=== PATIENT | male | born 1950 | race Two or more races ===

== ENCOUNTER 2025-05-29 16:28 | Inpatient (IN) | payer OTHER, MEDICAID, MEDICARE, SELFPAY ==
[2025-05-29 16:30] VITALS: BMI 21.2
--- NOTE | 2025-05-29 16:35 | EKG_ITS ---
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
[2025-05-29 16:44] VITALS: BP 130/70; PULSE 54; RESP 18; TEMP 36.4; O2SAT 98
--- NOTE | 2025-05-29 17:03 | XR_ITS ---
Examination: AP chest single view Technique: AP sitting portable chest single view Date and time: May 29, 2025, 1728 hrs., Comparison September 05, 2023. Indications: Weakness chest pain today. Findings: Mild enlargement cardiac contour No lobar pneumonia or pulmonary edema The osseous structures are intact Impression: Mild enlargement cardiac contour No pneumonia or pulmonary edema
--- NOTE | 2025-05-29 17:03 | XR_ITS ---
Examination: CT cervical spine without contrast 2-D sagittal reconstructions 2-D coronal reconstructions 3-D reconstructions. Exam date and time:May 29, 2025 1709 hrs. Indications: Ground-level fall 4 days ago with injury to the neck, neck pain CTDI:vol (mGy) 15.6 DLP: (mGycm) 350 Technique: Multiple 2 mm axial sections of the cervical spine have been obtained. The coronal and sagittal reconstructions have been obtained. 3-D reconstructions have been obtained. Low dose protocols were performed. One or more of the following dose reduction techniques were used; automated exposure control, adjustment of the mA and/or KV according to patient size, use of iterative reconstruction technique. Findings: Axial sections demonstrate intact base of the skull. C1 exhibit satisfactory relationship to the odontoid. No acute cervical vertebral body fracture seen. Alignment posterior spinous processes satisfactory. Impression: No acute cervical fracture.
--- NOTE | 2025-05-29 17:03 | XR_ITS ---
Examination: CT brain head without contrast. 2-D sagittal coronal reconstructions Date and time of exam:May 29, 2025, 1709 hrs. Indications: Ground-level fall 4 days ago, head pain CTDI: vol (mGy):56.9 DLP: (mGycm):1155 Technique: Multiple CT axial sections of the brain have been obtained, 5 mm slice thickness. Contrast has not been administered. 2-D sagittal, coronal reconstructions have been obtained Low dose protocols were performed. One or more of the following dose reduction techniques were used; automated exposure control, adjustment of the mA and/or KV according to patient size, use of iterative reconstruction technique. Findings: No significant ventricular enlargement. Intra-axial or extra-axial hemorrhage density is not seen. No mass effect or midline shift Basal cisterns are not remarkable. Fourth ventricle is midline. Cranial vault intact. Left sphenoid sinusitis Impression: Negative for acute hemorrhage, mass effect or midline shift
--- NOTE | 2025-05-29 17:04 | PD.EDADULT ---
ED General RME/HPI General Chief complaint: Dizziness Stated complaint: DIZZY/SWEATY, I ALMOST PASSED OUT Time Seen by Provider: 05/29/25 16:54 Arrival date/time: 05/29/25 16:28 CC: Weakness, dizziness HPI worsening dizziness and weakness for the past 4 days after ground-level fall. Patient is on Eliquis for A-fib. Patient states in the last 2 days he has also had burgundy colored stools. Patient denies loss of consciousness. Patient was not seen at the time of [place] Patient is awake alert oriented and pale appearing. Related Data Home Medications ?Medication ?Instructions ?Recorded ?Confirmed amlodipine 10 mg tablet 10 mg PO QDAY 08/27/23 04/14/24 Held on 04/20/24. Instructions: Resume on 04/27/24. Hold for 1 week, monitor blood pressure, follow-up with PCP before restarting. lisinopril 40 mg tablet 40 mg PO QDAY 08/27/23 04/14/24 Held on 04/20/24. Instructions: Resume on 04/27/24. Hold, monitor blood pressure, restart after following up with PCP, monitor blood pressure omeprazole 40 mg capsule,delayed 40 mg PO QDAY 08/27/23 04/14/24 release sertraline 100 mg tablet 100 mg PO HS 08/27/23 04/14/24 furosemide 20 mg tablet 20 mg PO QDAY 02/25/24 04/14/24 Held on 04/20/24. Instructions: Resume on 04/27/24. Hold for now, close monitor blood pressure, follow-up with PCP before restarting hydrochlorothiazide 12.5 mg capsule 12.5 mg PO QDAY 02/25/24 04/14/24 Held on 04/20/24. Instructions: Resume on 04/27/24. Hold, close monitor blood pressure, repeat CMP to avoid hyponatremia. Follow-up with PCP before restarting levothyroxine 25 mcg tablet 25 mcg PO QDAY 02/25/24 04/14/24 apixaban 5 mg tablet (Eliquis) 5 mg PO QDAY 04/14/24 04/14/24 Previous Rx's ?Medication ?Instructions ?Recorded hydrocodone 10 mg-acetaminophen 1 tab PO Q8H PRN pain #15 tabs 04/22/24 325 mg tablet Allergies Allergy/AdvReac Type Severity Reaction Status Date / Time No Known Allergies Allergy Verified 05/29/25 16:32 Review of Systems Review of Systems Narrative Review of Systems: GEN: No fever, no chills, no weight loss EYES: No discharge, no visual changes, no pain HEENT: No ear pain, no congestion, no sore throat PULM: No shortness of breath, no cough, no congestion CV: No chest pain, no dyspnea on exertion, no palpitations GI: No nausea, no vomiting, no diarrhea, no pain, no constipation : No frequency, no urgency, no dysuria MUSC/SKEL: No joint pain, no back pain SKIN: No rash PSYCH: No hallucinations, no depression HEME/LYMPH: No easy bleeding or bruising tendencies NEURO: + weakness, no headache Past Medical History Past Medical History NEUROLOGIC: Negative Neurological Disorders or Seizures CARDIAC: Positive Cardiac Disorders, Cardiac Arrhythmia and Hypertension; Negative Atrial Fibrillation or Congestive Heart Failure RESPIRATORY: Negative Chronic Obstructive Pulmonary Disease (COPD) GASTROINTESTINAL: Positive Gastrointestinal Disorders (COLOSTOMY- 08/2023) and Gastroesophageal Reflux Disease (RESOLVED) GENITOURINARY: Negative Genitourinary Disorders or Renal Disease MUSCULOSKELETAL: Negative Musculoskeletal Disorders ENDOCRINE: Positive Endocrine Disorders and Hypothyroidism; Negative Diabetes Mellitus Type 1 or Diabetes Mellitus Type 2 HEMATOLOGIC: Negative Blood Disorders, Anemia or Clotting Problems PSYCHO/SOCIAL: Positive Depression OTHER HISTORY: Positive Mumps; Negative Hospitalization, Autoimmune Disease, Down Syndrome, Developmental Delay, Falls, Blood Transfusions, Blood Transfusion Reaction, Anesthesia Reactions, Chicken Pox, Measles or Cancer Family History FAMILY HISTORY: Positive Family Cardiac Disorders (FATHER- MD) and Family Cancer (MOTHER- STOMACH CA); Negative Family Respiratory Disorders or Family Gastrointestinal Problems Surgical History SURGICAL: Positive Bowel Surgery (BOWEL RESECTION - COLOSTOMY) Social History SMOKING STATUS: Never smoker SECOND HAND EXPOSURE: No ED Exam Narrative Physical exam: [General: In mild discomfort but not in any acute distress Head normocephalic HEENT: Eyes pupils are PERRLA EOMs are intact mouth pink dry membranes uvula is midline swallow symmetrical phonation is normal. All other subsystems of HEENT are within acceptable limits Neck is supple nontender Chest equal chest rise nontender to palpation Respiratory: Clear to auscultation no wheezes crackles or rubs CV: Rate rhythm is regular no murmurs rubs or clicks Abdomen is soft nontender no masses positive bowel sounds all 4 quadrants GI: Rectum: Good rectal tone no hemorrhoids no fissures. Vault is empty guaiac stool is black guaiac positive. Back: No CVA tenderness no spinous process tenderness from cervical spine thoracic and lumbar spine Skin: 4 cm full-thickness laceration to the medial aspect of the right eyebrow. This is crusted with scabs, having never been closed. Note: Patient acknowledged this is a laceration from a ground-level fall 4 days ago. Otherwise skin is intact no petechiae rash induration ulceration or crepitus Extremities: Moving all extremity against resistance cap refill less than 2 seconds neurosensory intact Neuro: Awake alert oriented x3 Glascow coma 15 no focal deficits] Course Course Course Narrative: Patient's clinical condition and laboratory findings and imaging discussed with resident for , who agrees to accept the patient for admission. Patient in agreement with this plan Quality Measures none Orders Category Date Time Status COVID-19 Screening Questionnaire NOW Care 05/29/25 19:08 Active COVID-19 Screening Questionnaire NOW Care 05/29/25 19:17 Active Decision to Admit X1 Care 05/29/25 19:17 Active EKG (ED ONLY) *Do not use* NOW Care 05/29/25 16:35 Completed Insert IV NOW Care 05/29/25 18:24 Active NPO after Midnight ONCE Care 05/29/25 18:32 Active Consult to Gastroenterology Stat Cons 05/29/25 18:32 Ordered Diet Clear Liquid Diet 05/30/25 Breakfast Active Diet NPO after Midnight Diet 05/30/25 00:[address] cervical spine wo con Stat Exams 05/29/25 17:[address] head/brain wo con Stat Exams 05/29/25 17:03 Completed EKG (ED Only) Stat Exams 05/29/25 16:35 Draft XR chest 1V Stat Exams 05/29/25 17:03 Completed B-Type Natriuretic Peptide Stat Lab 05/29/25 17:17 Completed CBC Stat Lab 05/29/25 17:17 Completed Comprehensive Metabolic Panel Stat Lab 05/29/25 17:17 Completed Drug Screen,Urine Stat Lab 05/29/25 17:03 Ordered LDH (Lactate Dehydrogenase) Stat Lab 05/29/25 17:17 Completed Magnesium Stat Lab 05/29/25 17:17 Completed Occult Blood, Stool (LAB) Stat Lab 05/29/25 18:00 Completed Partial Thromboplastin Time Stat Lab 05/29/25 17:17 Completed Prothrombin Time with INR Stat Lab 05/29/25 17:17 Completed Troponin I Stat Lab 05/29/25 17:17 Completed Type and Screen Stat Lab 05/29/25 17:17 Completed Urinalysis, C/S if Indicated Stat Lab 05/29/25 17:03 Ordered Pantoprazole Inj [Protonix Inj] Med 05/29/25 17:59 Discontinued 40 mg IVP X1 ONE Pantoprazole/Ns 80Mg IV Premix [Protonix/NS 80mg IV Med 05/29/25 17:59 Active Premix] 80 mg in 100 ml IV Q10H Vital Signs Vital signs: Vital Signs Temperature 97.5 F 05/29/25 16:44 Pulse Rate 54 L 05/29/25 16:44 Respiratory Rate 18 05/29/25 16:44 Blood Pressure 130/70 05/29/25 16:44 Pulse Oximetry (%) 98 05/29/25 16:44 Oxygen Delivery Method Room Air 05/29/25 16:44 Discharge Plan Plan Patient Disposition: Other Care w/in Hosp (SDC/EMILY) Prescriptions/Referrals Prescriptions/Med Rec: No Action levothyroxine 25 mcg tablet 25 mcg PO QDAY Patient Comments: TAKE 1 TABLET BY MOUTH ONCE DAILY IN THE MORNING ON AN EMPTY STOMACH hydrochlorothiazide 12.5 mg capsule 12.5 mg PO QDAY Patient Comments: TAKE 1 CAPSULE BY MOUTH ONCE DAILY IN THE MORNING furosemide 20 mg tablet 20 mg PO QDAY sertraline 100 mg tablet 100 mg PO HS Patient Comments: TAKE 1 TABLET BY MOUTH ONCE DAILY FOR 90 DAYS omeprazole 40 mg capsule,delayed release(DR/EC) 40 mg PO QDAY Patient Comments: TAKE 1 CAPSULE BY MOUTH ONCE DAILY amlodipine 10 mg tablet 10 mg PO QDAY Patient Comments: TAKE 1 TABLET BY MOUTH ONCE DAILY lisinopril 40 mg tablet 40 mg PO QDAY Patient Comments: TAKE 1 TABLET BY MOUTH ONCE DAILY FOR 90 DAYS Eliquis 5 mg tablet 5 mg PO QDAY Patient Comments: TAKE 1 TABLET BY MOUTH TWICE DAILY hydrocodone-acetaminophen 10-325 mg tablet 1 tab PO Q8H MDD 30mg PRN (Reason: pain) Qty: 15 0RF Referrals: No Primary/Family,Physician [Primary Care Provider] - In 1 week Problem List Clinical Impression: GI (gastrointestinal bleed), Anemia Patient/Caregiver Discharge Instructions Print Language: Ecuadorean Stand Alone Forms: Jazmyne Award Info., Patient Portal Info Letter JULIA/RAFITA Supervising Physician JULIA/RAFITA Supervising Physician: Saud Hurst ENP [facility] Clinical Information Provided by: patient Medical Records reviewed [facility] Meds/Rx considered, not ordered None Labs/Rad/Tests considered, not ordered None Chronic Illness/Social Conditions Explain: A-fib on Eliquis hypertension Labs Labs: interpreted by me Lab(s) Interpretation(s): CBC shows no leukocytosis a hemoglobin of 10.5 and hematocrit of 32.4 platelets at 189. No bandemia. Coags show PT of 13.0 no other abnormalities CMP shows a chloride of 111 creatinine of 2.1 glucose of 138 no other electrolyte imbalances no transaminitis or T. bili elevation Troponin is negative BNP 347 Stool occult positive Imaging Imaging Interpretation(s): EKG performed at 1644 shows a ventricular rate of 54 QRS of 88 QTc of 461 this is A-fib with slow ventricular response. CT head and C-spine as interpreted by me read by radiology as negative for any acute finding Chest x-ray inter by me read by radiology shows a mildly enlarged cardiac border no other acute finding. Medication Administration(s) Medication Administration History Pantoprazole Sodium (Protonix/Ns 80mg Iv Premix) 80 mg in 100 mls @ 10 mls/hr IV Q10H DARYL Stop: 06/01/25 15:58 Last Admin: 05/29/25 18:40 Dose: 10 mls/hr Documented By: MADYSON Discontinued Medications Pantoprazole Sodium (Pantoprazole Inj 40 Mg Vial) 40 mg IVP X1 ONE Stop: 05/29/25 18:00 Last Admin: 05/29/25 18:23 Dose: 40 mg Documented By: MADYSON
[2025-05-29 17:27] LABS: Basophils # (Auto) 0.0 Thou/mm3 (0.0-0.2); Basophils % (Auto) 1 % (0-2.5); Eosinophils # (Auto) 0.0 Thou/mm3 (0.0-0.5); Eosinophils % (Auto) 1 % (0-10); Hematocrit 32.4 % (41.0-53.0); Hemoglobin 10.5 g/dL (13.5-16.0); Immature Granulocytes Auto 0.02 Thou/mm3 (0.00-0.00); Lymphocytes # (Auto) 0.8 Thou/mm3 (1.0-4.8); Lymphocytes % (Auto) 11 % (10-50); Mean Corpuscular HGB Conc 32.4 g/dl (31.0-37.0); Mean Corpuscular Hemoglobin 29.8 pg (25.0-35.0); Mean Corpuscular Volume 92 fL (80-100); Monocytes # (Auto) 0.4 Thou/mm3 (0.0-0.8); Monocytes % (Auto) 6 % (0-12); Neutrophils # (Auto) 6.4 Thou/mm3 (1.8-7.7); Neutrophils % (Auto) 82 % (37-80); Nucleated Red Blood Cell # 0.00 Thou/mm3 (0.00-0.00); Nucleated Red Blood Cell % 0 /100 WBC (0); Platelet Count 189 Thou/mm3 (140-440); RDW Standard Deviation 53.0 fL (35.1-43.9); Red Blood Count 3.52 Miln/mm3 (4.50-5.90); White Blood Count 7.8 Thou/mm3 (3.8-10.6)
[2025-05-29 17:52] LABS: Alanine Aminotransferase 17 U/L (10-49); Albumin, Serum 4.0 gm/dL (3.4-4.8); Albumin/Globulin Ratio 1.5 (1.2-2.2); Alkaline Phosphatase 92 U/L (46-116); Anion Gap 11 (7-16); Aspartate Amino Transferase 20 U/L (0-34); BUN/Creatinine Ratio 11 Ratio (12-20); Bilirubin,Total 0.3 mg/dL (0.3-1.2); Blood Urea Nitrogen 23 mg/dL (9-23); Calcium 9.5 mg/dL (8.3-10.6); Calcium (Corrected) 9.5 mg/dL (8.5-10.1); Carbon Dioxide 21.2 mMol/L (20.0-31.0); Chloride 111 mMol/L (98-107); Creatinine (Component) 2.1 mg/dL (0.6-1.3); Estimated Creatinine Clearance 27.7 mL/min (>60); Globulin 2.7 gm/dL (2.3-3.5); Glucose 138 mg/dL (74-106); LDH (Lactate Dehydrogenase) 195 U/L (120-246); Magnesium 1.8 mg/dL (1.6-2.6); Osmolality,Calculated 290 (275-295); Potassium 4.8 mMol/L (3.4-5.1); Sodium 143 mMol/L (136-145); Total Protein 6.7 gm/dL (5.7-8.2); Troponin I < 0.020 ng/mL (0.0-0.045); eGFR 32 See Note
[2025-05-29 17:54] LABS: INR 1.2 (0.9-1.3); Partial Thromboplastin Time 23.9 Seconds (22.0-36.0); Prothrombin Time 13.0 Seconds (9.0-12.2)
[2025-05-29 18:08] LABS: B-Type Natriuretic Peptide 347 pg/mL (0-100)
[2025-05-29 18:19] LABS: OBS Card Lot # 0124; OBS Developer Lot # 23003; OBS Performed By BOTED; OBS QC OK? Yes; Occult Blood, Stool Positive (Negative)
[2025-05-29 18:36] VITALS: BP 138/76; PULSE 46; RESP 17; TEMP 36.4; O2SAT 100
[2025-05-29] MEDS: PANTOPRAZOLE/NS 80MG IV PREMIX 80 MG/100 ML BAG 10 MG IV (18:40)
[2025-05-29 20:00] VITALS: BP 159/72; PULSE 49; RESP 14; TEMP 37; O2SAT 100
[2025-05-29] MEDS: ONDANSETRON INJ 2 MG/ML INJ 2 ML 4 MG IVP (20:09)
[2025-05-29 20:14] VITALS: BP 150/77; BP 159/79; PULSE 53; PULSE 60
[2025-05-29] MEDS: SODIUM CHLORIDE 0.9% 1000 ML 1,000 ML 80 ML IV (20:30)
--- NOTE | 2025-05-29 20:31 | PD.RESHP ---
Documentation for date of: 05/29/25 [facility] History of Present Illness Chief complaint: N/V, abdominal pain, weakness History of present illness: Mr. Salazar is a 74-year-old male past medical significant for hypertension, hypothyroidism, depression, A-fib on Eliquis, s/p colorectal anastomosis, colostomy reversal (2023) presented to [facility] ED on 05/29/2025 with chief complaint of generalized weakness, nausea, vomiting, abdominal pain. Patient reports [place], generalized weakness had a ground-level fall and lacerated medial aspect of right eyebrow. Patient thought he was having stroke-like symptoms, however he denies slurred speech, vision changes, droopy face, unilateral weakness, urinary or bowel incontinence. Patient has no prior history of stroke, seizures, NE. Patient also reported for the last 4 to 5 days occasional burgundy colored soft stool. Last bowel movement was this morning and has noticed streaks of blood in the stool. Associated with nausea and vomiting epigastic abdominal pain. Patient denies generalized abdominal pain however associated epigastric pain to gastric reflux from nausea. The emesis is nonbilious and nonbloody. Had 4-5 episodes of vomiting. Patient also reports low appetite for the last few months, he mention he has does feel the need to eat as often. No recent weight loss. Patient denies chest pain, chest palpitation, headache, hematuria, urinary frequency or urgency, chills. ED Course: -Initial vitals were BP 130/17, pulse 54, RR 18, temp 97.5, O2 sat 90% on room air. -Labs significant for hemoglobin 10.5, hematocrit 32.4, PT 13, chloride 111, creatinine 2.1, eGFR 32, glucose 130, BNP 347, stool occult blood positive -Imaging included EKG showed atrial fibrillation with slow ventricular response with rate 54, QTc 452. -In the ED, patient was given Protonix 40 mg x 1, Protonix 80mg IV - ED doctor consulted Dr. Perry (GI) recommend admission to for EGD tomorrow. -Patient was admitted for GI bleed workup and evaluation Review of Systems Review of systems otherwise negative except what is mentioned above. Past Medical History: Mentioned above Family History: Noncontributory Surgical History: Reanastomosis, removal colostomy on April 16/2024 Social History: Denies history of smoking. Denies recreational drug useQuit drinking after GI procedures. Current Medications: Eliquis 5 mg, levothyroxine 225 mcg (20+200 dosage per patient), lisinopril 40 mg, amlodipine 10mg Allergies: No known drug allergies Exam Vital Signs Temp Pulse Resp BP Pulse Ox O2 Del Method 98.6 F 53 L 14 159/79 H 100 Room Air 05/29/25 20:00 05/29/25 20:14 05/29/25 20:00 05/29/25 20:14 05/29/25 20:00 05/29/25 20:00 Narrative Exam General: Frail, pale, in mild discomfort due to nausea vomiting Skin: Warm, dry, intact. No rash or ecchymoses. Head: 4 cm full-thickness laceration to the medial aspect of the right eyebrow, is crusted with scabs Eye: Normal conjunctiva, PERRL. Throat: Oral mucosa moist. No obvious lesions in oropharynx. Cardiovascular: Regular rate and rhythm, no murmur, +S1/S2. Respiratory: Lungs are clear to auscultation, respirations unlabored, no crackles, no wheezing. Gastrointestinal: Generalized tenderness, prominent epigastric area, non-distended. No guarding or rebound tenderness. Extremities: No edema, no cyanosis, no clubbing. Neuro: Alert and oriented x3.No focal deficits observed. Conversant, moving all extremities. No overt cerebellar signs/incoordination.[place] 15 Psychiatric: Cooperative, appropriate affect Results: Labs 05/30/25 05:10 05/30/25 05:10 Labs: Short CBC 05/29/25 Range/Units 17:17 WBC 7.8 (3.8-10.6) Thou/mm3 Hgb 10.5 L (13.5-16.0) g/dL Hct 32.4 L (41.0-53.0) % Plt Count 189 (140-440) Thou/mm3 BMP 05/29/25 17:17 Sodium 143 Potassium 4.8 Chloride 111 H Carbon Dioxide 21.2 BUN 23 Creatinine 2.1 H Glucose 138 H Calcium 9.5 Cardiac Enzymes 05/29/25 Range/Units 17:17 Troponin I < 0.020 (0.0-0.045) ng/mL Liver Function 05/29/25 Range/Units 17:17 Total Bilirubin 0.3 (0.3-1.2) mg/dL AST 20 (0-34) U/L ALT 17 (10-49) U/L Alkaline Phosphatase 92 (46-116) U/L Albumin 4.0 (3.4-4.8) gm/dL Quality Measures Quality Measures none Advance care planning discussed with:: patient Medications Home Medications and Allergies Home Medications ?Medication ?Instructions ?Recorded ?Confirmed ?Type amlodipine 10 mg tablet 5 mg PO QDAY 08/27/23 05/29/25 History Held on 04/20/24. Instructions: Resume on 04/27/24. Hold for 1 week, monitor blood pressure, follow-up with PCP before restarting. lisinopril 40 mg tablet 40 mg PO QDAY 08/27/23 05/29/25 History omeprazole 40 mg capsule,delayed 40 mg PO QDAY 08/27/23 05/29/25 History release sertraline 100 mg tablet 100 mg PO HS 08/27/23 05/29/25 History furosemide 20 mg tablet 20 mg PO QDAY 02/25/24 05/29/25 History Held on 04/20/24. Instructions: Resume on 04/27/24. Hold for now, close monitor blood pressure, follow-up with PCP before restarting hydrochlorothiazide 12.5 mg capsule 12.5 mg PO QDAY 02/25/24 05/29/25 History levothyroxine 25 mcg tablet 25 mcg PO QDAY 02/25/24 05/29/25 History apixaban 5 mg tablet (Eliquis) 5 mg PO QDAY 04/14/24 05/29/25 History levothyroxine 200 mcg tablet 200 mcg PO QDAY 05/29/25 05/29/25 History Allergies Allergy/AdvReac Type Severity Reaction Status Date / Time No Known Allergies Allergy Verified 05/29/25 16:32 Visit Medications Acetaminophen (Acetaminophen 325 Mg Tablet) 650 mg PO Q4HR PRN PRN Reason: FEVER >101 Stop: 06/28/25 20:13 Pantoprazole Sodium (Protonix/Ns 80mg Iv Premix) 80 mg in 100 mls @ 10 mls/hr IV Q10H DARYL Stop: 06/01/25 15:58 Last Admin: 05/29/25 18:40 Dose: 10 mls/hr Sodium Chloride (Ns) 1,000 mls @ 80 mls/hr IV .[id number] DARYL Stop: 06/28/25 20:14 Last Admin: 05/29/25 20:30 Dose: 80 mls/hr Levothyroxine Sodium (Levothyroxine Sodium 25 Mcg Tablet) 25 mcg PO ACBR DARYL Stop: 06/29/25 05:59 Ondansetron HCl (Ondansetron Inj 2 Mg/Ml Inj 2 Ml) 4 mg IVP Q6HR PRN; Protocol PRN Reason: NAUSEA OR VOMITING Stop: 06/28/25 19:45 Last Admin: 05/29/25 20:09 Dose: 4 mg Sertraline HCl (Sertraline Hcl 25 Mg Tablet) 100 mg PO HS DARYL Stop: 06/29/25 20:59 Discontinued Medications Pantoprazole Sodium (Pantoprazole Inj 40 Mg Vial) 40 mg IVP X1 ONE Stop: 05/29/25 18:00 Last Admin: 05/29/25 18:23 Dose: 40 mg Assessment & Plan Plan Mr. Salazar is a 74-year-old male past medical significant for hypertension, hypothyroidism, depression, A-fib on Eliquis, s/p colorectal anastomosis, colostomy reversal (2023) presented to [facility] ED on 05/29/2025 with chief complaint of generalized weakness, nausea, vomiting, abdominal pain. Admitted for GIB evaluation and management #Upper versus lower GI bleed #Hematochezia #Normocytic anemia, chronic #Hx Colorectal reanastomosis #S/P Reverse colostomy Patient underwent procedure on April 16, 2024 under the care of general surgery Dr. Robb for removal of colostomy. Patient reported few days of hematochezia, abdominal pain, nonbloody emesis and nausea. CBC shows no leukocytosis a hemoglobin of 10.5 (baseline 9.6-10.3) and hematocrit of 32.4 platelets at 189. No bandemia. Coags show PT of 13.0 no other abnormalities Stool occult positive Plan -Continue Protonix drip -Ondansetron for nausea/vomiting -Pain control with Tylenol. -GI Dr. Perry consulted- NPO likely EGD tomorrow - Continue to monitor H&H - Transfuse if hemoglobin <7 #Atrial fibrillation, slow ventricular rate #Syncope with fall Patient has a history of atrial fibrillation on Eliquis 5mg EKG atrial fibrillation with slow ventricular response with rate 54 and QTc 452 CHADsVAS score 2?2.9% risk of stroke/TIA/systemic embolism HAS BLED score 3- high risk for major bleed - Held eliquis due to concern for UGIB - Will continue to monitor telemetry - Orthostatic vitals - Keep K > 4 and Mg > 2 -Consult cardiology as warranted - #CKD, stage III #Hyperchloremia Creatinine 2.1( baseline 2). GFR32. BUN/Cr 32 Hyperchloremia, likely secondary dehydration and fluid loss in general. - Monitor renal panel - IV fluids hydration # Hypothyroidism -Per patient it is a total of 225 mcg levothyroxine. Please confirm with pharmacy -Resume home levothyroxine 25Mcg #Depression -Resume home sertraline 100mg PO Hospital management: Lines: peripheral IV Diet: NPO GI prophylaxis: pantoprazole Disposition: tele for management of GIB CODE STATUS: Full code Patient seen and assessed under supervision of attending physician and discuss with senior resident Dr. Dyer PGY-2 Trish Richter MD PGY-1, Internal Medicine Please note: this document was transcribed using voice recognition technology; minor inaccuracies may be present. Attending Provider Attestation/Addendum After examination of the patient and review of the clinical data I feel that this patient needs admission to the hospital for further treatment/evaluation. Plan of care discussed with patient and is in agreement. I Arlene Salazar MD, attest that I was physically present for vaughn portions of evaluation, and examined patient, labs and imagings and plan of care were discussed with IM residents team, and I agree with the findings and plans documented above.
[2025-05-29 22:00] VITALS: BP 156/85; PULSE 65; RESP 16; TEMP 37; O2SAT 98
--- NOTE | 2025-05-29 23:06 | PC.NURSE ---
CALLED TO GIVE REPORT NURSE NOT AVAILABLE
[2025-05-30] VITALS (20 sets, daily range): BP systolic 97–157; BP diastolic 58–88; PULSE 51–85; RESP 11–22; TEMP 36.3–36.9; O2SAT 95–100; BMI 22.8; BMI 22.7
[2025-05-30] MEDS: FAMOTIDINE INJ 10 MG/ML VIAL 2 ML 20 MG IVP (00:47)
[2025-05-30] MEDS: MELATONIN 3 MG TABLET PO (00:48)
[2025-05-30] MEDS: ONDANSETRON INJ 2 MG/ML INJ 2 ML 4 MG IVP ×3 (02:42→14:02)
[2025-05-30] MEDS: PANTOPRAZOLE/NS 80MG IV PREMIX 80 MG/100 ML BAG 10 MG IV ×2 (02:43→13:54)
[2025-05-30 03:50] LABS: Collection Type, Urine Clean Catch
[2025-05-30 03:55] LABS: Bilirubin,Urine Negative (Negative); Blood,Urine Negative (Negative); Clarity,Urine Clear (Clear/Hazy); Color,Urine Yellow (Lt Yel-Yel); Culture Indicated,Urine Not Indicated; Glucose, Urine Negative (Negative); Hyaline Casts,Urine < 1 /hpf (0-1); Ketones,Urine Negative (Negative); Leukocyte Esterase,Urine Negative (Negative); Nitrite,Urine Negative (Negative); PH,Urine 5.5 (5.0-7.0); Protein,Urine Trace (Neg - Trace); RBC,Urine 5 /hpf (0-3); Specific Gravity,Urine 1.026 (1.001-1.035); Squamous Epithelial Cell,Urine < 1 /hpf (0-5); Urobilinogen,Urine Negative mg/dL (0.0-1.0); WBC,Urine < 1 /hpf (0-5)
[2025-05-30 04:03] LABS: Amphetamine/Methamp Scrn,U Negative (Negative); Barbiturate Screen,Urine Negative (Negative); Benzodiazepines Screen,Urine Negative (Negative); Benzoylecgonine Screen, Ur Negative (Negative); Fentanyl Screen,Urine Negative (Negative); Opiate Screen,Urine Negative (Negative); THC Screen,Urine Negative (Negative)
[2025-05-30 05:38] LABS: Basophils # (Auto) 0.0 Thou/mm3 (0.0-0.2); Basophils % (Auto) 0 % (0-2.5); Eosinophils # (Auto) 0.0 Thou/mm3 (0.0-0.5); Eosinophils % (Auto) 0 % (0-10); Hematocrit 29.9 % (41.0-53.0); Hemoglobin 9.7 g/dL (13.5-16.0); Immature Granulocytes Auto 0.04 Thou/mm3 (0.00-0.00); Lymphocytes # (Auto) 0.7 Thou/mm3 (1.0-4.8); Lymphocytes % (Auto) 7 % (10-50); Mean Corpuscular HGB Conc 32.4 g/dl (31.0-37.0); Mean Corpuscular Hemoglobin 29.8 pg (25.0-35.0); Mean Corpuscular Volume 92 fL (80-100); Monocytes # (Auto) 0.4 Thou/mm3 (0.0-0.8); Monocytes % (Auto) 5 % (0-12); Neutrophils # (Auto) 8.0 Thou/mm3 (1.8-7.7); Neutrophils % (Auto) 87 % (37-80); Nucleated Red Blood Cell # 0.00 Thou/mm3 (0.00-0.00); Nucleated Red Blood Cell % 0 /100 WBC (0); Platelet Count 168 Thou/mm3 (140-440); RDW Standard Deviation 53.1 fL (35.1-43.9); Red Blood Count 3.26 Miln/mm3 (4.50-5.90); White Blood Count 9.1 Thou/mm3 (3.8-10.6)
[2025-05-30 06:02] LABS: Alanine Aminotransferase 15 U/L (10-49); Albumin, Serum 3.7 gm/dL (3.4-4.8); Albumin/Globulin Ratio 1.4 (1.2-2.2); Alkaline Phosphatase 86 U/L (46-116); Anion Gap 10 (7-16); Aspartate Amino Transferase 17 U/L (0-34); BUN/Creatinine Ratio 15 Ratio (12-20); Bilirubin,Total 0.3 mg/dL (0.3-1.2); Blood Urea Nitrogen 27 mg/dL (9-23); Calcium 9.1 mg/dL (8.3-10.6); Calcium (Corrected) 9.3 mg/dL (8.5-10.1); Carbon Dioxide 21.1 mMol/L (20.0-31.0); Chloride 114 mMol/L (98-107); Creatinine (Component) 1.8 mg/dL (0.6-1.3); Estimated Creatinine Clearance 32.3 mL/min (>60); Globulin 2.7 gm/dL (2.3-3.5); Glucose 129 mg/dL (74-106); Magnesium 1.7 mg/dL (1.6-2.6); Osmolality,Calculated 295 (275-295); Phosphorous 4.4 mg/dL (2.4-5.1); Potassium 5.1 mMol/L (3.4-5.1); Sodium 145 mMol/L (136-145); Total Protein 6.4 gm/dL (5.7-8.2); eGFR 39 See Note
--- NOTE | 2025-05-30 07:43 | EKG_ITS ---
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
[2025-05-30] MEDS: RINGERS LACTATED 1000 ML 1,000 ML 125 ML IV (09:04)
--- NOTE | 2025-05-30 14:17 | PD.ADDPROG ---
Addendum Progress Note Addendum Date of report being addended: 05/30/25 Narrative: I Charlene Flores MD reviewed the note and agree with the resident's assessment & plan with modifications/additions/exceptions as below. I have personally reviewed labs, imaging, home meds/prior records, examined the patient, formulated and discussed management plan with the IM team. 74-year-old male with history of HTN, hypothyroidism, AF on anticoagulation presented to ED with abdominal pain, nausea, vomiting and diarrhea with dark red stools, lightheadedness and an episode of fall 4 days ago with syncope. Admitted overnight for possible GI bleed and syncopal episode. Will start on IV Protonix twice daily, GI is consulted for further evaluation of GI bleed likely EGD and colonoscopy, will obtain CT abdomen/pelvis. Continue trending CBC, no need for transfusion at this point. EKG did reveal A-fib with slow ventricular response with HR in 50s, telemetry did reveal frequent PVCs and NSVT, will start patient on metoprolol 12.5 mg twice daily keeping in mind risk for severe bradycardia and AV block, continue close telemetry monitoring, obtain transthoracic echocardiogram, consult cardiology regarding evaluation of NSVT and potential PPM placement.
--- NOTE | 2025-05-30 14:35 | ECHO_ITS ---
Transthoracic Echo Report Ht (in): 68 Wt (lb): 150 Exam Location: Echo Lab Status: Inpatient Journey Lineman: Zuleyka Cardozo Indications: Procedure Performed: BP: 135 / 78 HR: 60 MEASUREMENTS (Male / Female) Normal Values 2D ECHO LV Diastolic Diameter PLAX 4.7 cm 4.2 - 5.9 / 3.9 - 5.3 cm LV Systolic Diameter PLAX 3.3 cm IVS Diastolic Thickness 1.2 cm 0.6 - 1.0 / 0.6 - 0.9 cm LVPW Diastolic Thickness 1.3 cm 0.6 - 1.0 / 0.6 - 0.9 cm LV Relative Wall Thickness 0.5 LVOT Diameter 1.9 cm LA Volume Index 37.6 cm?/m? 16 - 28 cm?/m? Ascending Aorta Diameter 3.0 cm M-MODE AV Cusp Separation MM 1.1 cm DOPPLER AV Peak Velocity 118.0 cm/s AV Peak Gradient 5.6 mmHg AV Mean Gradient 3.0 mmHg AV Velocity Time Integral 22.4 cm LVOT Peak Velocity 104.0 cm/s LVOT Peak Gradient 4.3 mmHg LVOT Velocity Time Integral 18.1 cm LVOT Cardiac Index 1701.8 cm?/min?m? AV Area Cont Eq vti 2.3 cm? AV Area Cont Eq pk 2.5 cm? MV Area PHT 3.7 cm? MR Peak Velocity 472.0 cm/s MR Peak Gradient 89.1 mmHg Mitral E Point Velocity 88.8 cm/s Mitral A Point Velocity 40.7 cm/s Mitral E to A Ratio 2.2 LV E' Lateral Velocity 7.5 cm/s Mitral E to LV E' Lateral Ratio 11.8 LV E' Septal Velocity 5.5 cm/s Mitral E to LV E' Septal Ratio 16.0 TR Peak Velocity 291.0 cm/s TR Peak Gradient 33.9 mmHg PV Peak Velocity 126.0 cm/s PV Peak Gradient 6.4 mmHg FINDINGS Left Ventricle Normal left ventricular size, wall thickness, systolic function. Hypokinesis mid anterior septal wall. There is grade II diastolic dysfunction of the left ventricle (pseudonormal filling pattern). The ejection fraction is visually estimated at 50-55 %. Right Ventricle The right ventricle is normal in size and systolic function. The estimated right ventricular systolic pressure,52 mmHg with RAP 3. Severe HTN Left Atrium The left atrial cavity size is moderately increased. Right Atrium The right atrial cavity size is moderately increased. Atrial Septum The interatrial septum appears normal with no evidence of a shunt. Aorta The aorta is normal by two-dimensional, color flow and Doppler interrogation. Mitral Valve Moderate mitral regurgitation.mild thickening of the mitral valve leaflets. Aortic Valve Aortic valve sclerosis without stenosis.Trace to mild aortic valve regurgitation. Tricuspid Valve The tricuspid valve is normal by two-dimensional, color flow and Doppler interrogation. There is moderate to severe tricuspid valve regurgitation. Pulmonic Valve The pulmonic valve is not well visualized. There is no significant pulmonic valve regurgitation. Vessels The pulmonary artery appears normal. The inferior vena cava pulmonary and hepatic veins appear normal. Pericardium The pericardium is normal by two-dimensional imaging. There is no significant pericardial effusion. CONCLUSIONS Indication: Bradycardia Normal left ventricular size. EF estimated 40-45%. Mild global Hypokinesis. Normal right ventricular size and function. Estimated RVSP 58 mmHg. Atleast moderate pulmonary HTN Moderate dilated LA and RA. Mild MAC Moderate Aortic valve sclerosis without stenosis Moderate - severe TR and moderate MR. Trace AR. No pericardial effusion. Cecil Joseph (Electronically Signed) Final Date: 31 May 2025 14:53
--- NOTE | 2025-05-30 14:51 | ESPR_ITS ---
<Statement entered by Roger Wei MD - 05/30/25 20:16> Note reviewed and agree with care plan as documented. Please refer to the note below for further details. Plan discussed with attending physician Roger Wei MD PGY-2 Internal Medicine Documentation for date of: 05/30/25 Subjective Subjective Interval history: Patient was seen and examined at bedside. No acute events took place overnight. Patient states that he lost consciousness and fell to the ground 4 days ago while he was walking uphill to his old house. Yesterday the patient was at the [facility], when he was struck with lightheadedness and could not maintain his balance, fortunately he did not fall but a vegetable farm worker immediately reached out to him and had him seat on the chair. Patient has been having red, burgundy colored diarrhea for a few days, he also admits to vomiting over the past 24 hours. Exam Vital Signs Temp Pulse Resp BP Pulse Ox O2 Del Method 98.1 F 54 L 14 139/73 H 95 Room Air 05/30/25 12:00 05/30/25 13:55 05/30/25 12:00 05/30/25 13:55 05/30/25 12:00 05/30/25 12:00 Narrative Exam General: Frail, pale, in mild discomfort due to nausea vomiting Skin: Warm, dry, intact. No rash or ecchymoses. Head: 4 cm full-thickness laceration to the medial aspect of the right eyebrow, is crusted with scabs Eye: Normal conjunctiva, PERRL. Throat: Oral mucosa moist. No obvious lesions in oropharynx. Cardiovascular: Regular rate and rhythm, no murmur, +S1/S2. Respiratory: Lungs are clear to auscultation, respirations unlabored, no crackles, no wheezing. Gastrointestinal: Generalized tenderness, prominent epigastric area, non- distended. No guarding or rebound tenderness. Extremities: No edema, no cyanosis, no clubbing. Neuro: Alert and oriented x3.No focal deficits observed. Conversant, moving all extremities. No overt cerebellar signs/incoordination.Christianne 15 Psychiatric: Cooperative, appropriate affect Objective Labs 05/30/25 05:10 05/30/25 05:10 Labs: Laboratory Results - last 24 hr 05/29/25 05/29/25 05/29/25 17:17 18:00 20:18 WBC 7.8 RBC 3.52 L Hgb 10.5 L Hct 32.4 L MCV 92 MCH 29.8 MCHC 32.4 RDW Std Deviation 53.0 H Plt Count 189 Neut % (Auto) 82 H Lymph % (Auto) 11 Mer[place] % (Auto) 6 Eos % (Auto) 1 Baso % (Auto) 1 Neut # (Auto) 6.4 Lymph # (Auto) 0.8 L [place] # (Auto) 0.4 Eos # (Auto) 0.0 Baso # (Auto) 0.0 Immature Gran # (Auto) 0.02 H Absolute Nucleated RBC 0.00 Immature Gran % 0 Nucleated RBC % 0 PT 13.0 H INR 1.2 APTT 23.9 Sodium 143 Potassium 4.8 Chloride 111 H Carbon Dioxide 21.2 Anion Gap 11 BUN 23 Creatinine 2.1 H Estim Creat Clear Calc 27.7 L eGFR 32 L BUN/Creatinine Ratio 11 L Glucose 138 H Calculated Osmolality 290 Calcium 9.5 Corrected Calcium 9.5 Phosphorus Magnesium 1.8 Total Bilirubin 0.3 AST 20 ALT 17 Alkaline Phosphatase 92 Lactate Dehydrogenase 195 Troponin I < 0.020 B-Natriuretic Peptide 347 H Total Protein 6.7 Albumin 4.0 Globulin 2.7 Albumin/Globulin Ratio 1.5 Ur Collection Type Urine Color Urine Clarity Urine pH Ur Specific [place] Urine Protein Urine Glucose (UA) Urine Ketones Urine Blood Urine Nitrite Urine Bilirubin Urine Urobilinogen (Auto) Ur Leukocyte Esterase Urine RBC Urine WBC Ur Squamous Epith Cells Urine Bacteria Hyaline Casts Ur Culture Indicated? Stool Occult Blood Positive A Urine Opiates Screen Urine Fentanyl Screen Ur Barbiturates Screen U Amphetamin/Meth Scrn U Benzodiazepines Scrn U Cocaine Metab Screen U Marijuana (THC) Screen Blood Type O Positive O Positive Antibody Screen NEGATIVE NEGATIVE Blood Bank Wristband ID Yes Yes 05/30/25 05/30/25 00:10 05:10 WBC 9.1 RBC 3.26 L Hgb 9.7 L Hct 29.9 L MCV 92 MCH 29.8 MCHC 32.4 RDW Std Deviation 53.1 H Plt Count 168 Neut % (Auto) 87 H Lymph % (Auto) 7 L [place] % (Auto) 5 Eos % (Auto) 0 Baso % (Auto) 0 Neut # (Auto) 8.0 H Lymph # (Auto) 0.7 L [place] # (Auto) 0.4 Eos # (Auto) 0.0 Baso # (Auto) 0.0 Immature Gran # (Auto) 0.04 H Absolute Nucleated RBC 0.00 Immature Gran % 0 Nucleated RBC % 0 PT INR APTT Sodium 145 Potassium 5.1 Chloride 114 H Carbon Dioxide 21.1 Anion Gap 10 BUN 27 H Creatinine 1.8 H Estim Creat Clear Calc 32.3 L eGFR 39 L BUN/Creatinine Ratio 15 Glucose 129 H Calculated Osmolality 295 Calcium 9.1 Corrected Calcium 9.3 Phosphorus 4.4 Magnesium 1.7 Total Bilirubin 0.3 AST 17 ALT 15 Alkaline Phosphatase 86 Lactate Dehydrogenase Troponin I B-Natriuretic Peptide Total Protein 6.4 Albumin 3.7 Globulin 2.7 Albumin/Globulin Ratio 1.4 Ur Collection Type Clean Catch Urine Color Yellow Urine Clarity Clear Urine pH 5.5 Ur Specific [place] 1.026 Urine Protein Trace Urine Glucose (UA) Negative Urine Ketones Negative Urine Blood Negative Urine Nitrite Negative Urine Bilirubin Negative Urine Urobilinogen (Auto) Negative Ur Leukocyte Esterase Negative Urine RBC 5 H Urine WBC < 1 Ur Squamous Epith Cells < 1 Urine Bacteria None Hyaline Casts < 1 Ur Culture Indicated? Not Indicated Stool Occult Blood Urine Opiates Screen Negative Urine Fentanyl Screen Negative Ur Barbiturates Screen Negative U Amphetamin/Meth Scrn Negative U Benzodiazepines Scrn Negative U Cocaine Metab Screen Negative U Marijuana (THC) Screen Negative Blood Type Antibody Screen Blood Bank Wristband ID Quality Measures Quality Measures none Advance care planning discussed with:: patient Assessment & Plan Assessment Current Active Medications: Generic Name Dose Route Start Last Admin Trade Name Freq PRN Reason Stop Dose Admin Acetaminophen 650 mg 05/29/25 21:46 Acetaminophen 325 Mg Tablet PO 06/28/25 20:13 Q4HR PRN Fever >100.4 and Pain 1-4 Hydralazine HCl 10 mg 05/30/25 11:00 05/30/25 13:55 Hydralazine Inj 20 Mg/Ml Vial IVP 06/29/25 10:59 Not Given Q8HR DARYL Protocol Pantoprazole Sodium 80 mg in 100 mls @ 10 mls/hr 05/29/25 17:59 05/30/25 13:54 Protonix/Ns 80mg Iv Premix IV 06/01/25 15:58 10 mls/hr Q10H DARYL Administration Sodium Chloride 1,000 mls @ 80 mls/hr 05/29/25 20:15 05/29/25 20:30 Ns IV 06/28/25 20:14 80 mls/hr On Hold: 05/30/25 07:39 .[id number] DARYL Administration Lactated Ringer's 1,000 mls @ 125 mls/hr 05/30/25 07:39 05/30/25 09:04 Lactated Ringers IV 05/30/25 15:38 125 mls/hr .Q8H STA Administration Magnesium Sulfate 4 gm in 50 mls @ 12.5 mls/hr 05/30/25 14:34 Magnesium Sulfate Ivpb IV 05/30/25 18:33 X1 ONE Levothyroxine Sodium 200 mcg 05/30/25 06:00 05/30/25 05:39 Levothyroxine Sodium 100 Mcg Tablet PO 06/29/25 05:59 Not Given ACBR ADRYL Levothyroxine Sodium 25 mcg 05/30/25 06:00 05/30/25 05:40 Levothyroxine Sodium 25 Mcg Tablet PO 06/29/25 05:59 Not Given ACBR DARYL Ondansetron HCl 4 mg 05/30/25 05:38 05/30/25 14:02 Ondansetron Inj 2 Mg/Ml Inj 2 Ml IVP 06/28/25 19:45 4 mg Q4HR PRN Administration NAUSEA OR VOMITING Protocol Sertraline HCl 100 mg 05/30/25 21:00 Sertraline Hcl 25 Mg Tablet PO 06/29/25 20:59 DARYL Plan Plan Mr. Salazar is a 74-year-old male past medical significant for hypertension, hypothyroidism, depression, A-fib on Eliquis, s/p colorectal anastomosis, colostomy reversal (2023) presented to [facility] ED on 05/29/2025 with chief complaint of generalized weakness, nausea, vomiting, abdominal pain. Admitted for GIB evaluation and management #Upper versus lower GI bleed #Hematochezia #Normocytic anemia, chronic #Hx Colorectal reanastomosis #S/P Reverse colostomy Patient underwent procedure on April 16, 2024 under the care of general surgery Dr. Robb for removal of colostomy. Patient reported few days of hematochezia, abdominal pain, nonbloody emesis and nausea. CBC shows no leukocytosis a hemoglobin of 10.5 (baseline 9.6-10.3) and hematocrit of 32.4 platelets at 189. No bandemia. Coags show PT of 13.0 no other abnormalities Stool occult positive EGD (05/30): No ulceration seen, however, the visibility was poor because of the presence of by loose secretions as well as. Gastric motility disorder with presence of gastroparesis. Plan - GI consulted, appreciate recs - Colonoscopy prior to discharge when the nausea, vomiting, and gastric dysmotility improves - Venofer IV 200mg x1, followed by 100mg daily - LR IV 125mL/h -Start Protonix 40mg IV -Ondansetron for nausea/vomiting -Pain control with Tylenol. - Continue to monitor H&H - Transfuse if hemoglobin <7 #Atrial fibrillation, slow ventricular rate Patient has a history of atrial fibrillation on Eliquis 5mg EKG atrial fibrillation with slow ventricular response with rate 54 and QTc 452 CHADsVAS score 2?2.9% risk of stroke/TIA/systemic embolism HAS BLED score 3- high risk for major bleed - Held eliquis due to concern for UGIB - Will continue to monitor telemetry - Keep K > 4 and Mg > 2 #CKD, stage III #Hyperchloremia Creatinine 2.1( baseline 2). GFR32. BUN/Cr 32 Hyperchloremia, likely secondary dehydration and fluid loss in general. - Monitor renal panel - IV fluids hydration # Hypothyroidism -Per patient it is a total of 225 mcg levothyroxine. Please confirm with pharmacy -Resume home levothyroxine 25Mcg #Depression -Resume home sertraline 100mg PO Hospital management: Lines: peripheral IV Diet: NPO GI prophylaxis: pantoprazole Disposition: tele for management of GIB CODE STATUS: Full code This case was discussed with my attending physician, Dr. Flores, and senior resident, Dr Eriberto Clifford. Misael Metz, DO PGY I
[2025-05-30] MEDS: Magnesium Sulfate 4 GM Ivpb 4 GM/50 ML BAG IV (15:25)
--- NOTE | 2025-05-30 17:26 | PD.IMCONS ---
HPI Data of Consult Requesting Physician: Matty Perry MD Primary Care Provider: Physician No Primary/Family Consult Narrative Reason for consult: Melena History of present illness: 74 years old male who presented to the hospital last night with dizziness vertigo and a ground-level fall. Hemoglobin hematocrit of 9.7 and 28.9 Initial hemoglobin hematocrit as well as 10.5 and 32.9 Patient count was 189,000 Rectal exam showed melanotic stools grossly Hemoccult positive By the ER physician office manager executive assistant no history of any hematemesis cc:: cc: Matty Perry MD Review of Systems Review of Systems Systems Reviewed: All systems reviewed, normal except as documented Past Medical History Surgical History OTHER SURGICAL HX: Chronic atrial fibrillation on Eliquis Hypothyroidism on levothyroxine Meds Home Medications and Allergies Home Medications ?Medication ?Instructions ?Recorded ?Confirmed ?Type amlodipine 10 mg tablet 5 mg PO QDAY 08/27/23 05/29/25 History Held on 04/20/24. Instructions: Resume on 04/27/24. Hold for 1 week, monitor blood pressure, follow-up with PCP before restarting. lisinopril 40 mg tablet 40 mg PO QDAY 08/27/23 05/29/25 History omeprazole 40 mg capsule,delayed 40 mg PO QDAY 08/27/23 05/29/25 History release sertraline 100 mg tablet 100 mg PO HS 08/27/23 05/29/25 History furosemide 20 mg tablet 20 mg PO QDAY 02/25/24 05/29/25 History Held on 04/20/24. Instructions: Resume on 04/27/24. Hold for now, close monitor blood pressure, follow-up with PCP before restarting hydrochlorothiazide 12.5 mg capsule 12.5 mg PO QDAY 02/25/24 05/29/25 History levothyroxine 25 mcg tablet 25 mcg PO QDAY 02/25/24 05/29/25 History apixaban 5 mg tablet (Eliquis) 5 mg PO QDAY 04/14/24 05/29/25 History levothyroxine 200 mcg tablet 200 mcg PO QDAY 05/29/25 05/29/25 History Allergies Allergy/AdvReac Type Severity Reaction Status Date / Time No Known Allergies Allergy Verified 05/29/25 16:32 Exam Vital Signs Temp Pulse Resp BP Pulse Ox O2 Del Method 97.7 F 77 22 H 122/75 96 Room Air 05/30/25 16:00 05/30/25 16:00 05/30/25 16:00 05/30/25 16:00 05/30/25 16:00 05/30/25 16:00 Constitutional Comments: Alert oriented Routine Respiratory Exam Comments: Normal to auscultation Routine Abdominal Exam Comments: Soft nontender Results Labs 05/30/25 05:10 05/30/25 05:10 Labs: Short CBC 05/29/25 05/30/25 Range/Units 17:17 05:10 WBC 7.8 9.1 (3.8-10.6) Thou/mm3 Hgb 10.5 L 9.7 L (13.5-16.0) g/dL Hct 32.4 L 29.9 L (41.0-53.0) % Plt Count 189 168 (140-440) Thou/mm3 BMP 05/29/25 05/30/25 17:17 05:10 Sodium 143 145 Potassium 4.8 5.1 Chloride 111 H 114 H Carbon Dioxide 21.2 21.1 BUN 23 27 H Creatinine 2.1 H 1.8 H Glucose 138 H 129 H Calcium 9.5 9.1 Cardiac Enzymes 05/29/25 Range/Units 17:17 Troponin I < 0.020 (0.0-0.045) ng/mL Liver Function 05/29/25 05/30/25 Range/Units 17:17 05:10 Total Bilirubin 0.3 0.3 (0.3-1.2) mg/dL AST 20 17 (0-34) U/L ALT 17 15 (10-49) U/L Alkaline Phosphatase 92 86 (46-116) U/L Albumin 4.0 3.7 (3.4-4.8) gm/dL Urine 05/30/25 Range/Units 00:10 Urine Color Yellow (Lt Yel-Yel) Urine Clarity Clear (Clear/Hazy) Urine pH 5.5 (5.0-7.0) Ur Specific [place] 1.026 (1.001-1.035) Urine Protein Trace (Neg - Trace) Urine Glucose (UA) Negative (Negative) Assessment and Plan Additional Assessment & Plan Additional Plan: # Acute GI bleed with drop in hemoglobin hematocrit and melanotic stools and rectal examination showing grossly Hemoccult positivity Plan N.p.o. Serial CBCs IV Protonix Consent obtained for fiberoptic esophagogastroduodenoscopy with possible biopsy possible therapeutic intervention under intravenous moderate sedation Will follow the patient Other medical problems include Chronic atrial fibrillation on Eliquis which is on hold Hypothyroidism Thank you very much for the opportunity to participate in the care of this patient
[2025-05-30] MEDS: IRON SUCROSE CPLX INJ 20 MG/ML VIAL 5 ML 200 MG IVP (21:38)
[2025-05-30] MEDS: SERTRALINE HCL 25 MG TABLET 100 MG PO (21:38)
[2025-05-31] VITALS (9 sets, daily range): BP systolic 111–152; BP diastolic 54–93; PULSE 55–76; RESP 11–19; TEMP 36.2–36.9; O2SAT 95–99; BMI 22.8
[2025-05-31] MEDS: PANTOPRAZOLE/NS 80MG IV PREMIX 80 MG/100 ML BAG 10 MG IV ×3 (00:50→21:26)
[2025-05-31 05:27] LABS: Basophils # (Auto) 0.0 Thou/mm3 (0.0-0.2); Basophils % (Auto) 0 % (0-2.5); Eosinophils # (Auto) 0.0 Thou/mm3 (0.0-0.5); Eosinophils % (Auto) 0 % (0-10); Hematocrit 30.6 % (41.0-53.0); Hemoglobin 9.8 g/dL (13.5-16.0); Immature Granulocytes Auto 0.04 Thou/mm3 (0.00-0.00); Lymphocytes # (Auto) 0.5 Thou/mm3 (1.0-4.8); Lymphocytes % (Auto) 5 % (10-50); Mean Corpuscular HGB Conc 32.0 g/dl (31.0-37.0); Mean Corpuscular Hemoglobin 29.6 pg (25.0-35.0); Mean Corpuscular Volume 92 fL (80-100); Monocytes # (Auto) 0.8 Thou/mm3 (0.0-0.8); Monocytes % (Auto) 6 % (0-12); Neutrophils # (Auto) 10.3 Thou/mm3 (1.8-7.7); Neutrophils % (Auto) 89 % (37-80); Nucleated Red Blood Cell # 0.00 Thou/mm3 (0.00-0.00); Nucleated Red Blood Cell % 0 /100 WBC (0); Platelet Count 195 Thou/mm3 (140-440); RDW Standard Deviation 54.1 fL (35.1-43.9); Red Blood Count 3.31 Miln/mm3 (4.50-5.90); White Blood Count 11.7 Thou/mm3 (3.8-10.6)
[2025-05-31] MEDS: LEVOTHYROXINE SODIUM 25 MCG TABLET PO (05:32)
[2025-05-31] MEDS: LEVOTHYROXINE SODIUM 100 MCG TABLET 200 MCG PO (05:32)
[2025-05-31 05:46] LABS: Alanine Aminotransferase 11 U/L (10-49); Albumin, Serum 3.6 gm/dL (3.4-4.8); Albumin/Globulin Ratio 1.4 (1.2-2.2); Alkaline Phosphatase 78 U/L (46-116); Anion Gap 11 (7-16); Aspartate Amino Transferase 13 U/L (0-34); BUN/Creatinine Ratio 21 Ratio (12-20); Bilirubin,Total 0.4 mg/dL (0.3-1.2); Blood Urea Nitrogen 39 mg/dL (9-23); Calcium 8.5 mg/dL (8.3-10.6); Calcium (Corrected) 8.8 mg/dL (8.5-10.1); Carbon Dioxide 19.6 mMol/L (20.0-31.0); Chloride 113 mMol/L (98-107); Creatinine (Component) 1.9 mg/dL (0.6-1.3); Estimated Creatinine Clearance 33.0 mL/min (>60); Globulin 2.5 gm/dL (2.3-3.5); Glucose 131 mg/dL (74-106); Magnesium 2.1 mg/dL (1.6-2.6); Osmolality,Calculated 298 (275-295); Phosphorous 5.5 mg/dL (2.4-5.1); Potassium 4.7 mMol/L (3.4-5.1); Sodium 144 mMol/L (136-145); Total Protein 6.1 gm/dL (5.7-8.2); eGFR 37 See Note
[2025-05-31] MEDS: ONDANSETRON INJ 2 MG/ML INJ 2 ML 4 MG IVP ×2 (07:14→13:48)
[2025-05-31] MEDS: IRON SUCROSE CPLX INJ 20 MG/ML VIAL 5 ML 100 MG IVP (09:36)
--- NOTE | 2025-05-31 09:48 | XR_ITS ---
Examination: Abdomen AP single view Technique: AP portable supine abdomen, single view Exam date and time: May 31, 2025 0955 hours INDICATIONS: Vomiting epigastric pain today. FINDINGS: Moderate to large amounts of stool throughout the colon Central dilated small bowel loops No free air IMPRESSION: Central dilated small bowel loops, consider follow-up CT scan abdomen pelvis post intravenous contrast to exclude early small bowel obstruction
--- NOTE | 2025-05-31 13:05 | ESPR_ITS ---
<Statement entered by Roger Wei MD - 05/31/25 20:17> No acute overnight events. Seen and examined at bedside and patient resting comfortably in bed. He was noted to have undergone EGD yesterday that showed 800 cc of bile and other products with large amounts of food but no obstruction seen. Given findings, recommended abdominal x-ray to evaluate ileus/SBO. Films showed concerns for SBO and CT A/P showed small bowel obstruction pattern. Given findings, NG tube was placed on low intermittent suction and immediately produced 1000 cc of gastric content. Will continue on low intermittent suction and hold off on Gastrografin study until tomorrow given rapid suction of gastric content. ----- Note reviewed and agree with care plan as documented. Please refer to the note below for further details. Plan discussed with attending physician Dr. Bowen Wei MD PGY-2 Internal Medicine Documentation for date of: 05/31/25 Subjective Subjective Interval history: Patient was seen and examined at bedside. No acute events took place overnight. He has been nauseous and vomited dark colored vomitus. Latest BM was yesterday and noted to be dark/red by nurse. He states that dizziness/lightheadedness has resolved, but continues to be very tired and fatigued. No other complaints. Exam Vital Signs Temp Pulse Resp BP Pulse Ox O2 Del Method O2 Flow Rate 97.5 F 64 18 136/84 H 99 Room Air 3 05/31/25 12:00 05/31/25 12:00 05/31/25 12:05/31/25 12:05/31/25 12:05/31/25 12:05/30/25 18:35 Narrative Exam General: Frail, pale, in mild discomfort due to nausea vomiting Skin: Warm, dry, intact. No rash or ecchymoses. Head: 4 cm full-thickness laceration to the medial aspect of the right eyebrow, is crusted with scabs Eye: Normal conjunctiva, PERRL. Throat: Oral mucosa moist. No obvious lesions in oropharynx. Cardiovascular: Regular rate and rhythm, no murmur, +S1/S2. Respiratory: Lungs are clear to auscultation, respirations unlabored, no crackles, no wheezing. Gastrointestinal: Generalized tenderness, prominent epigastric area, non- distended. No guarding or rebound tenderness. Extremities: No edema, no cyanosis, no clubbing. Neuro: Alert and oriented x3.No focal deficits observed. Conversant, moving all extremities. No overt cerebellar signs/incoordination.[place] 15 Psychiatric: Cooperative, appropriate affect Objective Labs 06/01/25 04:53 06/01/25 04:53 Labs: Laboratory Results - last 24 hr 05/31/25 05:11 WBC 11.7 H RBC 3.31 L Hgb 9.8 L Hct 30.6 L MCV 92 MCH 29.6 MCHC 32.0 RDW Std Deviation 54.1 H Plt Count 195 Neut % (Auto) 89 H Lymph % (Auto) 5 L [place] % (Auto) 6 Eos % (Auto) 0 Baso % (Auto) 0 Neut # (Auto) 10.3 H Lymph # (Auto) 0.5 L [place] # (Auto) 0.8 Eos # (Auto) 0.0 Baso # (Auto) 0.0 Immature Gran # (Auto) 0.04 H Absolute Nucleated RBC 0.00 Immature Gran % 0 Nucleated RBC % 0 Sodium 144 Potassium 4.7 Chloride 113 H Carbon Dioxide 19.6 L Anion Gap 11 BUN 39 H Creatinine 1.9 H Estim Creat Clear Calc 33.0 L eGFR 37 L BUN/Creatinine Ratio 21 H Glucose 131 H Calculated Osmolality 298 H Calcium 8.5 Corrected Calcium 8.8 Phosphorus 5.5 H Magnesium 2.1 Total Bilirubin 0.4 AST 13 ALT 11 Alkaline Phosphatase 78 Total Protein 6.1 Albumin 3.6 Globulin 2.5 Albumin/Globulin Ratio 1.4 Quality Measures Quality Measures none Advance care planning discussed with:: patient Assessment & Plan Assessment Current Active Medications: Generic Name Dose Route Start Last Admin Trade Name Freq PRN Reason Stop Dose Admin Acetaminophen 650 mg 05/29/25 21:46 Acetaminophen 325 Mg Tablet PO 06/28/25 20:13 Q4HR PRN Fever >100.4 and Pain 1-4 Hydralazine HCl 10 mg 05/30/25 11:00 05/31/25 05:30 Hydralazine Inj 20 Mg/Ml Vial IVP 06/29/25 10:59 Not Given Q8HR DARYL Protocol Pantoprazole Sodium 80 mg in 100 mls @ 10 mls/hr 05/29/25 17:59 05/31/25 00:50 Protonix/Ns 80mg Iv Premix IV 06/01/25 15:58 10 mls/hr Q10H DARYL Administration Sodium Chloride 1,000 mls @ 80 mls/hr 05/29/25 20:15 05/29/25 20:30 Ns IV 06/28/25 20:14 80 mls/hr On Hold: 05/30/25 07:39 .[id number] DARYL Administration Iron Sucrose 100 mg 05/31/25 09:00 05/31/25 09:36 Iron Sucrose Cplx Inj 20 Mg/Ml Vial 5 Ml IVP 06/07/25 09:01 100 mg DAILY DARYL Administration Levothyroxine Sodium 200 mcg 05/30/25 06:00 05/31/25 05:32 Levothyroxine Sodium 100 Mcg Tablet PO 06/29/25 05:59 200 mcg ACBR DARYL Administration Levothyroxine Sodium 25 mcg 05/30/25 06:00 05/31/25 05:32 Levothyroxine Sodium 25 Mcg Tablet PO 06/29/25 05:59 25 mcg ACBR DARYL Administration Ondansetron HCl 4 mg 05/30/25 05:38 05/31/25 07:14 Ondansetron Inj 2 Mg/Ml Inj 2 Ml IVP 06/28/25 19:45 4 mg Q4HR PRN Administration NAUSEA OR VOMITING Protocol Sertraline HCl 100 mg 05/30/25 21:00 05/30/25 21:38 Sertraline Hcl 25 Mg Tablet PO 06/29/25 20:59 100 mg HS DARYL Administration Plan Plan Mr. Salazar is a 74-year-old male past medical significant for hypertension, hypothyroidism, depression, A-fib on Eliquis, s/p colorectal anastomosis, colostomy reversal (2023) presented to [facility] ED on 05/29/2025 with chief complaint of generalized weakness, nausea, vomiting, abdominal pain. Admitted for GIB evaluation and management #Upper versus lower GI bleed #Hematochezia #Normocytic anemia, chronic #Hx Colorectal reanastomosis #S/P Reverse colostomy Patient underwent procedure on April 16, 2024 under the care of general surgery Dr. Robb for removal of colostomy. Patient reported few days of hematochezia, abdominal pain, nonbloody emesis and nausea. CBC shows no leukocytosis a hemoglobin of 10.5 (baseline 9.6-10.3) and hematocrit of 32.4 platelets at 189. No bandemia. Coags show PT of 13.0 no other abnormalities Stool occult positive EGD (05/30): No ulceration seen, however, the visibility was poor because of the presence of by loose secretions as well as. Gastric motility disorder with presence of gastroparesis. XR abdomen:Moderate to large amounts of stool throughout the colon. Central dilated small bowel loops. No free air. CTAP: Prominent small bowel obstruction. CXR: no pneumonia or pulmonary edema. Mild enlargement of the cardiac contour present. Plan - NGT decompression (LIS setting) -produced close to 1L of upper GI content soon after insertion; will continue to monitor collected fluid. - GI consulted, appreciate recs - GI recommends Gastrografin small bowel follow-through - Colonoscopy prior to discharge when the nausea, vomiting, and gastric dysmotility improves - Venofer IV 200mg x1, followed by 100mg daily - LR IV 75mL/h -Start Protonix 40mg IV -Ondansetron for nausea/vomiting -Pain control with Tylenol. - Continue to monitor H&H - Transfuse if hemoglobin <7 #Syncope likely orthostatic hypotension 2/2 hypovolemia related to GI bleed. Also consider cardiogenic cause as patient does have atrial fibrillation. orthostatic vitals 122/71 (lying), 104/68 (sitting), 114/73 (standing) =a negative test. -Recommend rise from supine to standing slowly, compression stockings -IV fluids for volume repletion -Transfuse if Hgb <7 -midodrine IV 10mg Q8h PRN SBP <90mmHg. #Atrial fibrillation, slow ventricular rate #HFrEF (40-45%, 05/2025) Patient has a history of atrial fibrillation on Eliquis 5mg EKG atrial fibrillation with slow ventricular response with rate 54 and QTc 452 CHADsVAS score 2?2.9% risk of stroke/TIA/systemic embolism HAS BLED score 3- high risk for major bleed Per history, patient is on amlodipine 5 mg QD, HCTZ 12.5 mg QD and lisinopril 40 mg QD at home. - Cardiology consulted, appreciate recs. - Held eliquis due to concern for UGIB - Will continue to monitor telemetry - Keep K > 4 and Mg > 2 - Will start GDMT as tolerated #CKD, stage III #Hyperchloremia #Hypertension, secondary Creatinine 2.1( baseline 2). GFR32. BUN/Cr 32 Hyperchloremia, likely secondary dehydration and fluid loss in general. - Monitor renal panel - IV fluids hydration - stopped home lisinopril and started on hydralazine IV 10mg Q8h (hold if SBP <140) # Hypothyroidism -Per patient it is a total of 225 mcg levothyroxine. Please confirm with pharmacy -Resume home levothyroxine PO 25Mcg #Hyperphosphatemia PO4- 5.5 (05/31) -Sevelamer carbonate PO 400mg x1 #Depression -Resume home sertraline 100mg PO Hospital management: Lines: peripheral IV Diet: NPO GI prophylaxis: pantoprazole Disposition: tele for management of GIB CODE STATUS: Full code This case was discussed with my attending physician, Dr. Flores, and senior resident, Dr Eriberto Clifford. Misael Metz, PGY I Attending Provider Attestation/Addendum I attest that I was physically present for the evaluation, physical examination, lab and imaging review of the patient with the residents. I discussed the case with the residents and agree with the findings and plans of care as documented above. Kar Wiseman MD
--- NOTE | 2025-05-31 14:28 | PC.PT ---
Patient refused PT for a 2nd time stating today he is feeling too tired to work with PT. Yesterday 05/30/25 patient refused due to feeling nausea and having multiple episodes of vomiting in the A.M. Patient stated he would work with PT tomorrow. PT informed patient that if he refused again for a 3rd time that the evaluation would be cancelled due to non-compliance/refusal of PT services. Patient verbalized his understanding. Will attempt to see patient for PT eval tomorrow 06/01/25. RN made aware.
[2025-05-31] MEDS: RINGERS LACTATED 1000 ML 1,000 ML 75 ML IV ×2 (14:59→19:55)
--- NOTE | 2025-05-31 15:19 | XR_ITS ---
Examination: CT abdomen and pelvis without contrast. Coronal 3-D reconstructions. Sagittal 2-D reconstructions. Date and time of exam:May 31, 2025 1537 hours, comparison April 17, 2024 INDICATIONS: Epigastric pain and vomiting today CTDI: vol (mGy): 5.58 DLP: (mGycm): 351 Technique: Axial images of the abdomen have been obtained, 3 mm slice thickness Intravenous contrast material has not been administered. Low dose protocols were performed. One or more of the following dose reduction techniques were used; automated exposure control, adjustment of the mA and/or KV according to patient size, use of iterative reconstruction technique. Findings: Retrocardiac contour Fluid distended distal esophagus with wall thickening Fluid distended stomach, significant No focal liver or splenic lesions Contracted gallbladder No pancreatic mass No hydronephrosis Multiple prominently fluid distended small bowel loops Abdominal aortic calcification no aneurysmal dilatation Bladder intact AP prostate dimension 3.7 cm Moderate disc narrowing L4-L5 IMPRESSION: Prominent small bowel obstruction, recommend Gastrografin small bowel series follow-up
[2025-05-31] MEDS: SEVELAMER CARBONATE 800 MG TABLET 400 MG PO (16:16)
--- NOTE | 2025-05-31 17:50 | PC.NURSE ---
notified pt refusing NG tube placement, MD will come to bedside and talk to pt
--- NOTE | 2025-05-31 18:03 | PD.RESCONSUL ---
HPI Data of Consult Requesting Physician: Kar Wiseman MD Admitting Provider: Arlene Salazar MD Attending Provider: Kar Wiseman MD Primary Care Provider: Physician No Primary/Family Consult Narrative Reason for consult: HFrEF and atrial fibrillation History of present illness: Burke Salazar 74M pmhx of HTN, atrial fibrillation on Eliquis, hypothyroidism, depression, s/p colorectal anastomosis, colostomy reversal (2023) presented to [facility] ED on 05/29 for syncope, abdominal pain, N/V, and hematochezia. Patient reports episode of syncope 7 days prior to admission, reports syncope occurred when he was walking uphill when he suddenly felt dizzy, short of breath, felt like the room was spinning with peripheral vision darkness and lost consciousness. Was not witnessed so he does not know how long he was out for. But he woke up on the ground with lacerations on his face. Denies chest pain with these episodes. Patient reports he did not go to the emergency room at the time and as it was his first time passing out. He has felt dizzy and lightheaded previously but did not lose consciousness and attributed to heatstroke. Patient reports feeling similar episode of lightheadedness on Friday with associated sweating and room spinning however patient did not lose consciousness as he was in [employer] walking around and was aided to sit. Patient reports that sitting and laying down helps the dizziness and sometimes some lightheadedness when he turns his head quickly. Patient also reports that 1 week ago he noticed burgundy stool With associated abdominal pain and nausea. Endorses PND, no orthopnea or leg swelling. Patient currently denies chest pain, chest tightness, shortness of breath, abdominal pain or palpitations. PMHx: As above Surgical Hx: 2022 reported gangrene in stomach with colostomy bag placed, colostomy removal 04/2024. FHx: Father of [place] at 80 years old, no other familial cardiac history. Social Hx: Has a 50-[id number] history smoking from age 20 to age 50, previously drank alcohol for 40 years daily between the ages of [age] drinking 1 pack of beer or wine. Denies recreational illicit drug use. Lives in [place], previously , 4 children in [place], lives alone Allergies: NKDA Medications: Per med rec, but reports he has been taking Eliquis QD not BID In ED, BP 130/70, HR 54, afebrile, Cr 2.1, GFR 32, Mg 1.8, trops neg, BNP 347.EKG showed atrial fibrillation with slow ventricular response with QTC 452. Cardiology was consulted for echo results and atrial fibrillation. cc:: cc: Kar Wiseman MD Review of Systems Review of Systems Systems Reviewed: All systems reviewed, normal except as documented Exam Vital Signs Temp Pulse Resp BP Pulse Ox O2 Del Method O2 Flow Rate 97.8 F 62 19 152/84 H 98 Room Air 3 05/31/25 16:00 05/31/25 16:00 05/31/25 16:00 05/31/25 16:00 05/31/25 16:00 05/31/25 16:00 05/30/25 18:35 Narrative Exam GENERAL: AOx3, no acute distress, lying up in bed comfortably with NG tube in place draining HEENT: NC/AT, mucous membranes moist, bilateral sclera anicteric, R scabbed laceration medial aspect of R eyebrow CARDIOVASCULAR: regular rate and rhythm, S1/S2 present, no murmurs appreciated PULMONARY: clear to auscultation bilaterally, no rales/rhonchi/wheezes ABDOMINAL: soft,non-distended, no rebound/guarding, bowel sounds diminished, mild diffuse abdominal tenderness EXTREMITIES: no peripheral edema SKIN: warm and dry, no rashes NEURO: CN II-XII grossly intact, no focal deficits, alert, following commands Results Labs 06/04/25 05:33 06/04/25 05:33 Labs: Short CBC 05/31/25 Range/Units 05:11 WBC 11.7 H (3.8-10.6) Thou/mm3 Hgb 9.8 L (13.5-16.0) g/dL Hct 30.6 L (41.0-53.0) % Plt Count 195 (140-440) Thou/mm3 BMP 05/31/25 05:11 Sodium 144 Potassium 4.7 Chloride 113 H Carbon Dioxide 19.6 L BUN 39 H Creatinine 1.9 H Glucose 131 H Calcium 8.5 Liver Function 05/31/25 Range/Units 05:11 Total Bilirubin 0.4 (0.3-1.2) mg/dL AST 13 (0-34) U/L ALT 11 (10-49) U/L Alkaline Phosphatase 78 (46-116) U/L Albumin 3.6 (3.4-4.8) gm/dL Quality Measures Quality Measures none Advance care planning discussed with:: patient Medications Home Medications and Allergies Home Medications ?Medication ?Instructions ?Recorded ?Confirmed ?Type amlodipine 10 mg tablet 5 mg PO QDAY 08/27/23 05/29/25 History Held on 04/20/24. Instructions: Resume on 04/27/24. Hold for 1 week, monitor blood pressure, follow-up with PCP before restarting. lisinopril 40 mg tablet 40 mg PO QDAY 08/27/23 05/29/25 History omeprazole 40 mg capsule,delayed 40 mg PO QDAY 08/27/23 05/29/25 History release sertraline 100 mg tablet 100 mg PO HS 08/27/23 05/29/25 History furosemide 20 mg tablet 20 mg PO QDAY 02/25/24 05/29/25 History Held on 04/20/24. Instructions: Resume on 04/27/24. Hold for now, close monitor blood pressure, follow-up with PCP before restarting hydrochlorothiazide 12.5 mg capsule 12.5 mg PO QDAY 02/25/24 05/29/25 History levothyroxine 25 mcg tablet 25 mcg PO QDAY 02/25/24 05/29/25 History apixaban 5 mg tablet (Eliquis) 5 mg PO QDAY 04/14/24 05/29/25 History levothyroxine 200 mcg tablet 200 mcg PO QDAY 05/29/25 05/29/25 History Allergies Allergy/AdvReac Type Severity Reaction Status Date / Time No Known Allergies Allergy Verified 05/29/25 16:32 Visit Medications Acetaminophen (Acetaminophen 325 Mg Tablet) 1,000 mg PO Q6HR PRN PRN Reason: Fever >99 or Pain 1-4 Stop: 06/28/25 21:45 Hydralazine HCl (Hydralazine Inj 20 Mg/Ml Vial) 10 mg IVP Q8HR DARYL; Protocol Stop: 06/29/25 10:59 Last Admin: 05/31/25 14:44 Dose: Not Given Pantoprazole Sodium (Protonix/Ns 80mg Iv Premix) 80 mg in 100 mls @ 10 mls/hr IV Q10H DARYL Stop: 06/01/25 15:58 Last Admin: 05/31/25 13:25 Dose: 10 mls/hr Sodium Chloride (Ns) 1,000 mls @ 80 mls/hr IV .[id number] DARYL On Hold: 05/30/25 07:39 Stop: 06/28/25 20:14 Last Admin: 05/29/25 20:30 Dose: 80 mls/hr Lactated Ringer's (Lactated Ringers) 1,000 mls @ 75 mls/hr IV .[id number] ONE Stop: 06/01/25 06:52 Iron Sucrose (Iron Sucrose Cplx Inj 20 Mg/Ml Vial 5 Ml) 100 mg IVP DAILY DARYL Stop: 06/07/25 09:01 Last Admin: 05/31/25 09:36 Dose: 100 mg Levothyroxine Sodium (Levothyroxine Sodium 100 Mcg Tablet) 200 mcg PO ACBR DARYL Stop: 06/29/25 05:59 Last Admin: 05/31/25 05:32 Dose: 200 mcg Levothyroxine Sodium (Levothyroxine Sodium 25 Mcg Tablet) 25 mcg PO ACBR DARYL Stop: 06/29/25 05:59 Last Admin: 05/31/25 05:32 Dose: 25 mcg Ondansetron HCl (Ondansetron Inj 2 Mg/Ml Inj 2 Ml) 4 mg IVP Q4HR PRN; Protocol PRN Reason: NAUSEA OR VOMITING Stop: 06/28/25 19:45 Last Admin: 05/31/25 13:48 Dose: 4 mg Sertraline HCl (Sertraline Hcl 25 Mg Tablet) 100 mg PO HS [facility] Stop: 06/29/25 20:59 Last Admin: 05/30/25 21:38 Dose: 100 mg Discontinued Medications Acetaminophen (Acetaminophen 325 Mg Tablet) 650 mg PO Q4HR PRN PRN Reason: FEVER >101 Stop: 06/28/25 20:13 Acetaminophen (Acetaminophen 325 Mg Tablet) 650 mg PO Q4HR PRN PRN Reason: Fever >100.4 and Pain 1-4 Stop: 06/28/25 20:13 Benzocaine (Benzocaine 20% (Hurricaine) [place] 1 Dose) 0 dose TOP X1 ONE Stop: 05/30/25 18:05 Last Admin: 05/30/25 22:24 Dose: Not Given Diphenhydramine HCl (Diphenhydramine Inj 50 Mg/Ml Vial) 25 mg IVP [id number] PRN PRN Reason: MODERATE SEDATION Stop: 05/30/25 20:04 Famotidine (Famotidine Inj 10 Mg/Ml Vial 2 Ml) 20 mg IVP X1 ONE Stop: 05/30/25 00:26 Last Admin: 05/30/25 00:47 Dose: 20 mg Fentanyl Citrate (Fentanyl Cit Inj 50 Mcg/Ml Amp 2ml) 50 mcg IVP Q2M PRN PRN Reason: MODERATE SEDATION Stop: 05/30/25 20:04 Hydralazine HCl (Hydralazine Inj 20 Mg/Ml Vial) 10 mg IVP Q6H DARYL Stop: 06/29/25 07:44 Last Admin: 05/30/25 22:24 Dose: Not Given Lactated Ringer's (Lactated Ringers) 1,000 mls @ 125 mls/hr IV .Q8H STA Stop: 05/30/25 15:38 Last Admin: 05/30/25 09:04 Dose: 125 mls/hr Magnesium Sulfate (Magnesium Sulfate Ivpb) 4 gm in 50 mls @ 12.5 mls/hr IV X1 ONE Stop: 05/30/25 18:33 Last Admin: 05/30/25 15:25 Dose: 12.5 mls/hr Lactated Ringer's (Lactated Ringers) 1,000 mls @ 75 mls/hr IV .[id number] DARYL Stop: 06/30/25 14:14 Last Admin: 05/31/25 14:59 Dose: 75 mls/hr Iron Sucrose (Iron Sucrose Cplx Inj 20 Mg/Ml Vial 5 Ml) 200 mg IVP X1 ONE Stop: 05/30/25 21:01 Last Admin: 05/30/25 21:38 Dose: 200 mg Levothyroxine Sodium (Levothyroxine Sodium 25 Mcg Tablet) 25 mcg PO ACBR DARYL Stop: 06/29/25 05:59 Levothyroxine Sodium (Levothyroxine Sodium 25 Mcg Tablet) 225 mcg PO ACBR DARYL Stop: 06/29/25 05:59 Lisinopril (Lisinopril 20 Mg Tablet) 40 mg PO QDAY DARYL Stop: 06/29/25 08:59 Melatonin (Melatonin 3 Mg Tablet) 3 mg PO X1 ONE Stop: 05/30/25 00:27 Last Admin: 05/30/25 00:48 Dose: 3 mg Midazolam HCl (Midazolam Inj 1 Mg/Ml Vial 2 Ml) 2 mg IVP Q2M PRN PRN Reason: Moderate Sedation Stop: 05/30/25 20:04 Ondansetron HCl (Ondansetron Inj 2 Mg/Ml Inj 2 Ml) 4 mg IVP Q6HR PRN; Protocol PRN Reason: NAUSEA OR VOMITING Stop: 06/28/25 19:45 Last Admin: 05/30/25 02:42 Dose: 4 mg Pantoprazole Sodium (Pantoprazole Inj 40 Mg Vial) 40 mg IVP X1 ONE Stop: 05/29/25 18:00 Last Admin: 05/29/25 18:23 Dose: 40 mg Sevelamer Carbonate (Sevelamer Carbonate 800 Mg Tablet) 400 mg PO X1 ONE Stop: 05/31/25 15:02 Last Admin: 05/31/25 16:16 Dose: 400 mg Assessment & Plan Plan Burke Salazar 74M pmhx of HTN, atrial fibrillation on Eliquis diagnosed 2023, hypothyroidism, depression, s/p colorectal anastomosis, colostomy reversal (2023) presented to [facility] ED on 05/29 for abdominal pain, N/V, and hematochezia. Cardiology was consulted for echo results and atrial fibrillation. #HFrEF (40-45%, 05/2025) 08/28/23 Echo showed Normal LV size and function. Estimated EF 55-60% Normal RV size and function. Mild MR, Trace TR. IVC not well visualized. 05/29/25 Echo showed Normal left ventricular size. EF estimated 40-45%. Mild global Hypokinesis. Normal right ventricular size and function. Estimated RVSP 58 mmHg. Atleast moderate pulmonary HTN. Moderate dilated LA and RA. Mild MAC. Moderate Aortic valve sclerosis without stenosis. Moderate - severe TR and moderate MR. Trace AR. No pericardial effusion. Likely tachycardia induced vs chronic rhythm uncontrolled induced cardiomyopathy not on GDMT. Plan: - Will need to be on GDMT with reevaluation with repeat echo post 3 months of adequate GDMT - Telemetry for cardiac monitoring - Keep K>4 and Mg>2 at all times #Atrial fibrillation, slow ventricular rate on Eliquis Per history, also reports taking Eliquis 5 mg QD not BID. During current hospital stay, rate has been bradycardic and previous admission in 04/2024 HR 70-100. EKGs since 2022 report atrial fibrillation. Plan: - No indication for medical or interventional treatment, such as medication or cardioversion, at this time as rate is low normal and patient is having GIB - Follow up outpatient cardiology for further management and follow up #HTN Per history, patient is on amlodipine 5 mg QD, HCTZ 12.5 mg QD and lisinopril 40 mg QD. Plan: - Recommend to start GDMT if BP allows - CTM vitals #Upper versus lower GI bleed #Hematochezia #Normocytic anemia, chronic #Hx Colorectal reanastomosis #S/P Reverse colostomy #CKD, stage III #Hyperchloremia #Hypothyroidism #Depression Chronic medical conditions nonpertinent to the following presentation Plan: - Management per primary team Thank you for the consult and allowing participation in patient's care. Plan of care discussed with attending Dr. Joseph. Massiel Clifford DO PGY-1 Internal Medicine Attending Provider Attestation/Addendum I have personally seen and examined the patient separately on the above date of service and discussed the plan of care with the resident. I reviewed the resident Dr. Lim consultation progress note and agree with the resident findings and plan in the note above and have also edited the documentation to reflect my findings and plan. Cecil Joseph M.D. Interventional Cardiology
--- NOTE | 2025-05-31 18:40 | XR_ITS ---
Examination: AP chest single view Technique: AP portable sitting chest single view Date and time: May 31, 2025 1847 hrs., Comparison 05/29/2025 Indications: Post orogastric tube placement Findings: Orogastric tube tip in stomach satisfactory position Mild enlargement cardiac contour No pneumonia or pulmonary edema Impression: Orogastric tube tip in the stomach satisfactory position
--- NOTE | 2025-05-31 18:45 | PC.NURSE ---
Ng tube placed on L nare at 55 cm, pt tolerated well waiting for xray confirmation pt immediately put out 1000ml out of ng tube aware
--- NOTE | 2025-05-31 20:11 | PD.IMPROG ---
Documentation for date of: 05/31/25 Subjective Subjective Interval history: Patient evaluated NGT in Bilious drainage CT scan of the abdomen pelvis shows small bowel obstruction pattern Exam Vital Signs Temp Pulse Resp BP Pulse Ox O2 Del Method O2 Flow Rate 97.8 F 62 19 152/84 H 98 Room Air 3 05/31/25 16:00 05/31/25 16:00 05/31/25 16:00 05/31/25 16:00 05/31/25 16:00 05/31/25 16:00 05/30/25 18:35 Objective Labs 05/31/25 05:11 05/31/25 05:11 Labs: Laboratory Results - last 24 hr 05/31/25 05:11 WBC 11.7 H RBC 3.31 L Hgb 9.8 L Hct 30.6 L MCV 92 MCH 29.6 MCHC 32.0 RDW Std Deviation 54.1 H Plt Count 195 Neut % (Auto) 89 H Lymph % (Auto) 5 L [place] % (Auto) 6 Eos % (Auto) 0 Baso % (Auto) 0 Neut # (Auto) 10.3 H Lymph # (Auto) 0.5 L [place] # (Auto) 0.8 Eos # (Auto) 0.0 Baso # (Auto) 0.0 Immature Gran # (Auto) 0.04 H Absolute Nucleated RBC 0.00 Immature Gran % 0 Nucleated RBC % 0 Sodium 144 Potassium 4.7 Chloride 113 H Carbon Dioxide 19.6 L Anion Gap 11 BUN 39 H Creatinine 1.9 H Estim Creat Clear Calc 33.0 L eGFR 37 L BUN/Creatinine Ratio 21 H Glucose 131 H Calculated Osmolality 298 H Calcium 8.5 Corrected Calcium 8.8 Phosphorus 5.5 H Magnesium 2.1 Total Bilirubin 0.4 AST 13 ALT 11 Alkaline Phosphatase 78 Total Protein 6.1 Albumin 3.6 Globulin 2.5 Albumin/Globulin Ratio 1.4 Impressions Impression: Gastroparesis with gastric motility disorder with suction about 850 cc of bilious material on endoscopy CT scan of the abdomen pelvis suggestive of small bowel obstruction Recommend Gastrografin small bowel follow-through Assessment & Plan A&P Narrative # Acute GI bleed with drop in hemoglobin hematocrit and melanotic stools and rectal examination showing grossly Hemoccult positivity Plan N.p.o. Serial CBCs IV Protonix Consent obtained for fiberoptic esophagogastroduodenoscopy with possible biopsy possible therapeutic intervention under intravenous moderate sedation Will follow the patient Other medical problems include Chronic atrial fibrillation on Eliquis which is on hold Hypothyroidism Thank you very much for the opportunity to participate in the care of this patient Time Spent With Patient Time: Total time spent is greater than 50% in coordination of care (as documented) at patient's floor/unit and/or counseling patient:
--- NOTE | 2025-05-31 20:12 | XR_ITS ---
Examination: Small bowel series AP supine abdomen 4 views Date and time: May 28 40,025 0902 hours INDICATIONS: Abdominal pain and distention this week, small bowel obstruction pattern on CT abdomen pelvis 05/31/2025 1537 hours TECHNIQUE AND FINDINGS: AP supine abdomen single view preliminary film This film demonstrates air distended small bowel loops Orogastric tube satisfactory position AP supine abdomen films immediate 30 minute and 90 minutes post 120 cc Gastrografin Prominent proximal small bowel loop distention IMPRESSION: Small bowel obstruction pattern Recommend follow-up abdomen films 12 noon, 2:00 PM, 4:00 PM, 6:00 PM
[2025-05-31] MEDS: SERTRALINE HCL 25 MG TABLET 100 MG PO (21:28)
[2025-05-31] MEDS: hydrALAZINE INJ 20 MG/ML VIAL 10 MG IVP (21:40)
[2025-05-31] MEDS: ACETAMINOPHEN 325 MG TABLET 1000 MG PO (21:49)
[2025-06-01] VITALS (10 sets, daily range): BP systolic 100–145; BP diastolic 57–82; PULSE 63–81; RESP 11–24; TEMP 36–37; O2SAT 92–99; BMI 21.9
[2025-06-01] MEDS: LEVOTHYROXINE SODIUM 25 MCG TABLET PO (05:34)
[2025-06-01] MEDS: PANTOPRAZOLE/NS 80MG IV PREMIX 80 MG/100 ML BAG 10 MG IV (05:34)
[2025-06-01] MEDS: LEVOTHYROXINE SODIUM 100 MCG TABLET 200 MCG PO (05:34)
[2025-06-01 05:37] LABS: Basophils # (Auto) 0.0 Thou/mm3 (0.0-0.2); Basophils % (Auto) 0 % (0-2.5); Eosinophils # (Auto) 0.0 Thou/mm3 (0.0-0.5); Eosinophils % (Auto) 0 % (0-10); Hematocrit 28.4 % (41.0-53.0); Hemoglobin 9.2 g/dL (13.5-16.0); Immature Granulocytes Auto 0.02 Thou/mm3 (0.00-0.00); Lymphocytes # (Auto) 0.9 Thou/mm3 (1.0-4.8); Lymphocytes % (Auto) 10 % (10-50); Mean Corpuscular HGB Conc 32.4 g/dl (31.0-37.0); Mean Corpuscular Hemoglobin 29.8 pg (25.0-35.0); Mean Corpuscular Volume 92 fL (80-100); Monocytes # (Auto) 1.0 Thou/mm3 (0.0-0.8); Monocytes % (Auto) 11 % (0-12); Neutrophils # (Auto) 7.8 Thou/mm3 (1.8-7.7); Neutrophils % (Auto) 80 % (37-80); Nucleated Red Blood Cell # 0.00 Thou/mm3 (0.00-0.00); Nucleated Red Blood Cell % 0 /100 WBC (0); Platelet Count 178 Thou/mm3 (140-440); RDW Standard Deviation 54.0 fL (35.1-43.9); Red Blood Count 3.09 Miln/mm3 (4.50-5.90); White Blood Count 9.8 Thou/mm3 (3.8-10.6)
[2025-06-01] MEDS: hydrALAZINE INJ 20 MG/ML VIAL 10 MG IVP (05:44)
[2025-06-01 06:35] LABS: Alanine Aminotransferase 8 U/L (10-49); Albumin, Serum 3.4 gm/dL (3.4-4.8); Albumin/Globulin Ratio 1.5 (1.2-2.2); Alkaline Phosphatase 71 U/L (46-116); Anion Gap 10 (7-16); Aspartate Amino Transferase 10 U/L (0-34); BUN/Creatinine Ratio 23 Ratio (12-20); Bilirubin,Total 0.4 mg/dL (0.3-1.2); Blood Urea Nitrogen 53 mg/dL (9-23); Calcium 8.3 mg/dL (8.3-10.6); Calcium (Corrected) 8.8 mg/dL (8.5-10.1); Carbon Dioxide 18.8 mMol/L (20.0-31.0); Chloride 111 mMol/L (98-107); Creatinine (Component) 2.3 mg/dL (0.6-1.3); Estimated Creatinine Clearance 26.1 mL/min (>60); Globulin 2.3 gm/dL (2.3-3.5); Glucose 98 mg/dL (74-106); Magnesium 2.1 mg/dL (1.6-2.6); Osmolality,Calculated 293 (275-295); Phosphorous 5.2 mg/dL (2.4-5.1); Potassium 4.8 mMol/L (3.4-5.1); Sodium 140 mMol/L (136-145); Total Protein 5.7 gm/dL (5.7-8.2); eGFR 29 See Note
[2025-06-01] MEDS: RINGERS LACTATED 1000 ML 1,000 ML 75 ML IV ×2 (08:10→20:32)
[2025-06-01] MEDS: SEVELAMER CARBONATE 800 MG TABLET PO (08:10)
[2025-06-01] MEDS: IRON SUCROSE CPLX INJ 20 MG/ML VIAL 5 ML 100 MG IVP ×2 (08:10→12:07)
--- NOTE | 2025-06-01 10:28 | PC.SS ---
Update: Patient in possession of SBO. NG tube remains in place.
--- NOTE | 2025-06-01 12:01 | PC.SS ---
RETAIL SALES TEAMMATE conducted bedside contact with the patient conduct initial assessment and to discuss discharge planning.? Patient confirmed demographic information.? Patient resides alone at home.? Patient reports not utilizing any form of DME to assist with ambulation.? Patient does not utilize home oxygen.? Patient describes the ability to complete ADL?s independently.? Patient possesses ability to drive vehicle.? Patient identified friend, Naheed Stovall as medical surrogate decision maker.? Patient informed RETAIL SALES TEAMMATE not possessing any local relatives. Patient?s PCP is Adriane Solis.? Patient does not participate with dialysis.? Patient does not possess any specialty providers.? Patient utilizes mail delivery for medication services.? Plan is for the patient to return home at the time of discharge.? Patient reports access to basic utilities and provisions.? Friend, Naheed Lanevito will provide transportation on behalf of the patient.? No further discharge needs identified by the patient.? No further intervention required at this time, psych social worker will be available to address any further concerns.? Next of Kin: Naheed Stovall D/C Plan: Home
--- NOTE | 2025-06-01 12:55 | ESPR_ITS ---
Documentation for date of: 06/01/25 Subjective Subjective Interval history: No acute overnight events. Seen and examined at bedside and patient states that he feels much better compared to yesterday. Denies any nausea or vomiting and after NG tube was placed yesterday he immediately had 1000 cc of output. Small bowel series initiated and continues to have small bowel obstruction as of 6 PM today. If last films continue to show SBO, will consult surgery for further recommendations. Otherwise, GI continues to follow, vital signs stable, CBC shows stable hemoglobin, CHEM panel shows acute on chronic kidney injury and IVF started. Exam Vital Signs Temp Pulse Resp BP Pulse Ox O2 Del Method O2 Flow Rate 97.8 F 67 16 138/75 H 97 Room Air 3 06/01/25 12:00 06/01/25 12:00 06/01/25 12:00 06/01/25 12:00 06/01/25 12:00 06/01/25 12:00 05/30/25 18:35 Narrative Exam GENERAL: AOx3, no acute distress, lying up in bed comfortably with NG tube in place HEENT: NC/AT, mucous membranes moist, bilateral sclera anicteric, R scabbed laceration medial aspect of R eyebrow CARDIOVASCULAR: regular rate and rhythm, S1/S2 present, no murmurs appreciated PULMONARY: clear to auscultation bilaterally, no rales/rhonchi/wheezes ABDOMINAL: soft,non-distended, no rebound/guarding, bowel sounds diminished, m ild diffuse abdominal tenderness EXTREMITIES: no peripheral edema SKIN: warm and dry, no rashes NEURO: CN II-XII grossly intact, no focal deficits, alert, following commands Objective Labs 06/01/25 04:53 06/01/25 04:53 Labs: Laboratory Results - last 24 hr 06/01/25 04:53 WBC 9.8 RBC 3.09 L Hgb 9.2 L Hct 28.4 L MCV 92 MCH 29.8 MCHC 32.4 RDW Std Deviation 54.0 H Plt Count 178 Neut % (Auto) 80 Lymph % (Auto) 10 [place] % (Auto) 11 Eos % (Auto) 0 Baso % (Auto) 0 Neut # (Auto) 7.8 H Lymph # (Auto) 0.9 L [place] # (Auto) 1.0 H Eos # (Auto) 0.0 Baso # (Auto) 0.0 Immature Gran # (Auto) 0.02 H Absolute Nucleated RBC 0.00 Immature Gran % 0 Nucleated RBC % 0 Sodium 140 Potassium 4.8 Chloride 111 H Carbon Dioxide 18.8 L Anion Gap 10 BUN 53 H Creatinine 2.3 H Estim Creat Clear Calc 26.1 L eGFR 29 L BUN/Creatinine Ratio 23 H Glucose 98 Calculated Osmolality 293 Calcium 8.3 Corrected Calcium 8.8 Phosphorus 5.2 H Magnesium 2.1 Total Bilirubin 0.4 AST 10 ALT 8 L Alkaline Phosphatase 71 Total Protein 5.7 Albumin 3.4 Globulin 2.3 Albumin/Globulin Ratio 1.5 Quality Measures Quality Measures none Advance care planning discussed with:: patient Assessment & Plan Assessment Current Active Medications: Generic Name Dose Route Start Last Admin Trade Name Freq PRN Reason Stop Dose Admin Acetaminophen 1,000 mg 06/01/25 06:50 Acetaminophen 500 Mg Tablet PO 06/28/25 21:45 Q6HR PRN Fever >99 or Pain 1-4 Hydralazine HCl 10 mg 05/30/25 11:00 06/01/25 05:44 Hydralazine Inj 20 Mg/Ml Vial IVP 06/29/25 10:59 10 mg Q8HR DARYL Administration Protocol Pantoprazole Sodium 80 mg in 100 mls @ 10 mls/hr 05/29/25 17:59 06/01/25 05:34 Protonix/Ns 80mg Iv Premix IV 06/01/25 15:58 10 mls/hr Q10H DARYL Administration Lactated Ringer's 1,000 mls @ 75 mls/hr 06/01/25 07:31 06/01/25 08:10 Lactated Ringers IV 07/01/25 07:30 75 mls/hr .[id number] DARYL Administration Iron Sucrose 200 mg 06/02/25 09:00 Iron Sucrose Cplx Inj 20 Mg/Ml Vial 5 Ml IVP 06/06/25 09:01 DAILY DARYL Levothyroxine Sodium 200 mcg 05/30/25 06:00 06/01/25 05:34 Levothyroxine Sodium 100 Mcg Tablet PO 06/29/25 05:59 200 mcg ACBR DARYL Administration Levothyroxine Sodium 25 mcg 05/30/25 06:00 06/01/25 05:34 Levothyroxine Sodium 25 Mcg Tablet PO 06/29/25 05:59 25 mcg ACBR DARYL Administration Ondansetron HCl 4 mg 05/30/25 05:38 05/31/25 13:48 Ondansetron Inj 2 Mg/Ml Inj 2 Ml IVP 06/28/25 19:45 4 mg Q4HR PRN Administration NAUSEA OR VOMITING Protocol Pantoprazole Sodium 40 mg 06/01/25 21:00 Pantoprazole Inj 40 Mg Vial IVP 07/01/25 20:59 BID DARYL Sertraline HCl 100 mg 05/30/25 21:00 05/31/25 21:28 Sertraline Hcl 25 Mg Tablet PO 06/29/25 20:59 100 mg HS DARYL Administration Plan Burke Salazar is a 74-year-old male past medical significant for hypertension, hypothyroidism, depression, A-fib on Eliquis, s/p colorectal anastomosis, colostomy reversal (2023) who is admitted for GI bleed work-up but now complicated by SBO. #Upper versus lower GI bleed #Hematochezia #Normocytic anemia, chronic #History of colorectal reanastomosis #S/p reverse colostomy Underwent procedure on April 16, 2024 under care of general surgeon, Dr. Robb, for removal of colostomy. Now presents with few days of hematochezia, abdominal pain, nonbloody emesis and nausea. Initial hemoglobin of 10.5 (baseline 9.6- 10.3) and hematocrit of 32.4. Stool occult positive. EGD (05/30): no source of UGIBD but poor visibility noted due to presence of large amount of bile and food, suspect gastric motility disorder vs SBO XR abdomen: moderate to large amounts of stool throughout the colon, central dilated small bowel loops, no free air CTAP: small bowel obstruction pattern - GI consulted, appreciate recs - NGT placed and small bowel series started - Colonoscopy prior to discharge when the nausea, vomiting, and gastric dysmotility improves - Venofer 200 mg IV daily - LR at 75 cc/h - Protonix 40 mg IV BID - Ondansetron for nausea/vomiting - Continue to monitor H&H and transfuse if hemoglobin <7 #Syncope Likely orthostatic hypotension 2/2 hypovolemia related to GI bleed. Also consider cardiogenic cause as patient does have atrial fibrillation. Orthostatic vitals show 122/71 (lying), 104/68 (sitting), and 114/73 (standing) -> negative - Recommend rise from supine to standing slowly, compression stockings - IV fluids for volume repletion #Atrial fibrillation, slow ventricular rate #HFrEF (40-45%, 05/2025) History of atrial fibrillation on Eliquis 5 mg, currently held in light of GIB EKG showed atrial fibrillation with slow ventricular response with rate 54 and QTc 452 CHADsVAS score 2 ->?2.9% risk of stroke/TIA/systemic embolism HAS BLED score 3 -> high risk for major bleed - Cardiology consulted, appreciate recs - Held eliquis due to concern for UGIB - Continue to monitor telemetry - Keep K > 4 and Mg > 2 - Will start GDMT as tolerated #CKD, stage III #Hyperchloremia Creatinine 2.1( baseline 2). GFR32. BUN/Cr 32 Hyperchloremia, likely secondary dehydration and fluid loss in general. - Monitor renal panel - IV fluids hydration #Hypertension Per history, patient is on amlodipine 5 mg daily, HCTZ 12.5 mg daily, and lisinopril 40 mg daily at home - Hydralazine 10 mg IV q8h (hold if SBP <140) #Hypothyroidism - Levothyroxine 225 mcg ACBR #Hyperphosphatemia PO4- 5.5 (05/31) - Sevelamer carbonate PO 400 mg x2 #Depression - Resume home sertraline 100mg PO Hospital management: Disposition: tele for management of GIB Lines: peripheral IV Diet: NPO GI prophylaxis: pantoprazole CODE STATUS: Full code ----- Plan discussed with attending physician Dr. Bowen Wei MD PGY-2 Internal Medicine Attending Provider Attestation/Addendum I attest that I was physically present for the evaluation, physical examination, lab and imaging review of the patient with the residents. I discussed the case with the residents and agree with the findings and plans of care as documented above. Kar Wiseman MD
--- NOTE | 2025-06-01 14:15 | XR_ITS ---
Examination: Abdomen AP single view Technique: AP portable supine abdomen, single view Exam date and time: June 01, 2025 1434 hours INDICATIONS: Abdominal pain and distention this week, 5 Delayed film post small bowel series FINDINGS: Contrast distended small bowel loops IMPRESSION: Small bowel obstruction pattern, additional delayed films will be obtained
--- NOTE | 2025-06-01 16:14 | PC.PT ---
PT eval only. Patient was xI with bed mobility, transfers, and is at his baseline with ambulation. Patient is safe to continue ambulating to the bathroom with RN supervision. RN made aware.
--- NOTE | 2025-06-01 16:15 | XR_ITS ---
Examination: Abdomen AP single view Technique: AP portable supine abdomen, single view Exam date and time: June 01, 2025, 1638 hrs. Indications: Abdominal distention this week, 7 hour delayed film post small bowel series today Findings: Contrast in prominently distended small bowel loops measuring up to 5.6 cm Impression: Small bowel obstruction pattern, recommend follow-up films 6:00 PM 8:00 PM 10:00 PM
--- NOTE | 2025-06-01 17:05 | ESPR_ITS ---
Documentation for date of: 06/01/25 Subjective Subjective Interval history: Patient seen and examined at bedside. Telemetry reviewed showing coarse atrial fibrillation average rate 70-80s. BP 110-140/50-80 although BP this morning 145/76. Hgb 9.8 to 9.2, K 4.8, bicarb 19 to 18, BUN increased from 29 to 53, Cr increased from 1.9 to 2.3, with 1.8 being patient's baseline per chart reivew. Patient is feeling well today, abdominal pain improving. NG tube in place and draining. Denies chest pain, SOB, palpitations or lightheadedness, although he has not exerted himself. Exam Vital Signs Temp Pulse Resp BP Pulse Ox O2 Del Method O2 Flow Rate 96.8 F 63 11 L 132/69 H 97 Room Air 3 06/01/25 15:56 06/01/25 15:56 06/01/25 15:56 06/01/25 15:56 06/01/25 15:56 06/01/25 15:56 05/30/25 18:35 Narrative Exam GENERAL: AOx3, no acute distress, lying up in bed comfortably with NG tube in place draining HEENT: NC/AT, mucous membranes moist, bilateral sclera anicteric, R scabbed laceration medial aspect of R eyebrow CARDIOVASCULAR: regular rate and rhythm, S1/S2 present, no murmurs appreciated PULMONARY: clear to auscultation bilaterally, no rales/rhonchi/wheezes ABDOMINAL: soft,non-distended, no rebound/guarding, bowel sounds diminished, m ild diffuse abdominal tenderness EXTREMITIES: no peripheral edema SKIN: warm and dry, no rashes NEURO: CN II-XII grossly intact, no focal deficits, alert, following commands Objective Labs 06/01/25 04:53 06/01/25 04:53 Labs: Laboratory Results - last 24 hr 06/01/25 04:53 WBC 9.8 RBC 3.09 L Hgb 9.2 L Hct 28.4 L MCV 92 MCH 29.8 MCHC 32.4 RDW Std Deviation 54.0 H Plt Count 178 Neut % (Auto) 80 Lymph % (Auto) 10 [place] % (Auto) 11 Eos % (Auto) 0 Baso % (Auto) 0 Neut # (Auto) 7.8 H Lymph # (Auto) 0.9 L [place] # (Auto) 1.0 H Eos # (Auto) 0.0 Baso # (Auto) 0.0 Immature Gran # (Auto) 0.02 H Absolute Nucleated RBC 0.00 Immature Gran % 0 Nucleated RBC % 0 Sodium 140 Potassium 4.8 Chloride 111 H Carbon Dioxide 18.8 L Anion Gap 10 BUN 53 H Creatinine 2.3 H Estim Creat Clear Calc 26.1 L eGFR 29 L BUN/Creatinine Ratio 23 H Glucose 98 Calculated Osmolality 293 Calcium 8.3 Corrected Calcium 8.8 Phosphorus 5.2 H Magnesium 2.1 Total Bilirubin 0.4 AST 10 ALT 8 L Alkaline Phosphatase 71 Total Protein 5.7 Albumin 3.4 Globulin 2.3 Albumin/Globulin Ratio 1.5 Quality Measures Quality Measures none Advance care planning discussed with:: patient Assessment & Plan Assessment Current Active Medications: Generic Name Dose Route Start Last Admin Trade Name Freq PRN Reason Stop Dose Admin Acetaminophen 1,000 mg 06/01/25 06:50 Acetaminophen 500 Mg Tablet PO 06/28/25 21:45 Q6HR PRN Fever >99 or Pain 1-4 Hydralazine HCl 10 mg 05/30/25 11:00 06/01/25 13:09 Hydralazine Inj 20 Mg/Ml Vial IVP 06/29/25 10:59 Not Given Q8HR DARYL Protocol Lactated Ringer's 1,000 mls @ 75 mls/hr 06/01/25 07:31 06/01/25 08:10 Lactated Ringers IV 07/01/25 07:30 75 mls/hr .[id number] DARYL Administration Iron Sucrose 200 mg 06/02/25 09:00 Iron Sucrose Cplx Inj 20 Mg/Ml Vial 5 Ml IVP 06/06/25 09:01 DAILY DARYL Levothyroxine Sodium 200 mcg 05/30/25 06:00 06/01/25 05:34 Levothyroxine Sodium 100 Mcg Tablet PO 06/29/25 05:59 200 mcg ACBR DARYL Administration Levothyroxine Sodium 25 mcg 05/30/25 06:00 06/01/25 05:34 Levothyroxine Sodium 25 Mcg Tablet PO 06/29/25 05:59 25 mcg ACBR DARYL Administration Ondansetron HCl 4 mg 05/30/25 05:38 05/31/25 13:48 Ondansetron Inj 2 Mg/Ml Inj 2 Ml IVP 06/28/25 19:45 4 mg Q4HR PRN Administration NAUSEA OR VOMITING Protocol Pantoprazole Sodium 40 mg 06/01/25 21:00 Pantoprazole Inj 40 Mg Vial IVP 07/01/25 20:59 BID DARYL Sertraline HCl 100 mg 05/30/25 21:00 05/31/25 21:28 Sertraline Hcl 25 Mg Tablet PO 06/29/25 20:59 100 mg HS DARYL Administration Plan Burke Salazar 74M pmhx of HTN, atrial fibrillation on Eliquis, hypothyroidism, depression, s/p colorectal anastomosis, colostomy reversal (2023) presented to [facility] ED on 05/29 for abdominal pain, N/V, and hematochezia. Cardiology was consulted for echo results and atrial fibrillation. #HFrEF (40-45%, 05/2025) 08/28/23 Echo showed Normal LV size and function. Estimated EF 55-60% Normal RV size and function. Mild MR, Trace TR. IVC not well visualized. 05/29/25 Echo showed Normal left ventricular size. EF estimated 40-45%. Mild global Hypokinesis. Normal right ventricular size and function. Estimated RVSP 58 mmHg. Atleast moderate pulmonary HTN. Moderate dilated LA and RA. Mild MAC. Moderate Aortic valve sclerosis without stenosis. Moderate - severe TR and moderate MR. Trace AR. No pericardial effusion. Likely tachycardia induced vs chronic rhythm uncontrolled induced cardiomyopathy not on GDMT. Plan: - Will need to be on GDMT once BP tolerates and post management of GIB with reevaluation with repeat echo post 3 months of adequate GDMT - Telemetry for cardiac monitoring - Keep K>4 and Mg>2 at all times #Atrial fibrillation, slow ventricular rate on Eliquis Per history, also reports taking Eliquis 5 mg QD not BID. During current hospital stay, rate has been bradycardic and previous admission in 04/2024 HR 70- 100. EKGs since 2022 report atrial fibrillation. Plan: - No indication for medical or interventional treatment, such as medication or cardioversion, at this time as rate is low normal and patient is having GIB - Follow up outpatient cardiology for further management and follow up #HTN Per history, patient is on amlodipine 5 mg QD, HCTZ 12.5 mg QD and lisinopril 40 mg QD. Plan: - Recommend to start GDMT if BP allows - CTM vitals #Syncope 2/2 acute post hemorrhagic anemia #Upper versus lower GI bleed #Hematochezia #Normocytic anemia, chronic #Hx Colorectal reanastomosis #S/P Reverse colostomy #CKD, stage III #Hyperchloremia #Hypothyroidism #Depression Chronic medical conditions nonpertinent to the following presentation Plan: - Management per primary team Thank you for the consult and allowing participation in patient's care. Plan of care discussed with attending Dr. Joseph. Massiel Clifford, DO PGY-1 Internal Medicine Attending Provider Attestation/Addendum I have personally seen and examined the patient separately on the above date of service and discussed the plan of care with the resident. I reviewed the resident Dr. Massiel Clifford consultation progress note and agree with the resident findings and plan in the note above and have also edited the documentation to reflect my findings and plan. Cecil Joseph M.D. Interventional Cardiology
[2025-06-01] MEDS: ACETAMINOPHEN 500 MG TABLET 1000 MG PO (17:11)
--- NOTE | 2025-06-01 18:15 | XR_ITS ---
Examination: Abdomen AP single view Technique: AP portable supine abdomen, single view Date and time: June 01, 2025, 182 hrs. Indications: Nine-hour delayed film post small bowel series today Findings: Distended small bowel loops remain although some contrast is present in the colon Impression: At least partial small bowel obstruction Follow-up films recommended 8:00 PM 10:00 PM
--- NOTE | 2025-06-01 20:15 | XR_ITS ---
Examination: Abdomen AP single view Technique: AP portable supine abdomen, single view Exam date and time: June 01, 2025, 2012 hrs. Indications: Abdominal pain and distention this week, 11 hour delayed film post small bowel series Findings: Contrast distended small bowel loops remain Impression: Small bowel obstruction Recommend follow-up films 10:00 PM, 1:00 AM, 4:00 AM
[2025-06-01] MEDS: SERTRALINE HCL 25 MG TABLET 100 MG PO (20:51)
--- NOTE | 2025-06-01 21:36 | PD.IMPROG ---
Documentation for date of: 06/01/25 Subjective Subjective Interval history: Contrast findings in the right colon suggestive of a partial small bowel obstruction Exam Vital Signs Temp Pulse Resp BP Pulse Ox O2 Del Method O2 Flow Rate 97.7 F 75 24 H 123/68 92 L Room Air 3 06/01/25 20:00 06/01/25 21:06 06/01/25 20:00 06/01/25 21:06 06/01/25 20:00 06/01/25 15:56 05/30/25 18:35 Objective Labs 06/01/25 04:53 06/01/25 04:53 Labs: Laboratory Results - last 24 hr 06/01/25 04:53 WBC 9.8 RBC 3.09 L Hgb 9.2 L Hct 28.4 L MCV 92 MCH 29.8 MCHC 32.4 RDW Std Deviation 54.0 H Plt Count 178 Neut % (Auto) 80 Lymph % (Auto) 10 [place] % (Auto) 11 Eos % (Auto) 0 Baso % (Auto) 0 Neut # (Auto) 7.8 H Lymph # (Auto) 0.9 L [place] # (Auto) 1.0 H Eos # (Auto) 0.0 Baso # (Auto) 0.0 Immature Gran # (Auto) 0.02 H Absolute Nucleated RBC 0.00 Immature Gran % 0 Nucleated RBC % 0 Sodium 140 Potassium 4.8 Chloride 111 H Carbon Dioxide 18.8 L Anion Gap 10 BUN 53 H Creatinine 2.3 H Estim Creat Clear Calc 26.1 L eGFR 29 L BUN/Creatinine Ratio 23 H Glucose 98 Calculated Osmolality 293 Calcium 8.3 Corrected Calcium 8.8 Phosphorus 5.2 H Magnesium 2.1 Total Bilirubin 0.4 AST 10 ALT 8 L Alkaline Phosphatase 71 Total Protein 5.7 Albumin 3.4 Globulin 2.3 Albumin/Globulin Ratio 1.5 Impressions Impression: Small bowel obstruction resolving Contrast finally seen in the right colon Continue current management Assessment & Plan A&P Narrative # Acute GI bleed with drop in hemoglobin hematocrit and melanotic stools and rectal examination showing grossly Hemoccult positivity Plan N.p.o. Serial CBCs IV Protonix Consent obtained for fiberoptic esophagogastroduodenoscopy with possible biopsy possible therapeutic intervention under intravenous moderate sedation Will follow the patient Other medical problems include Chronic atrial fibrillation on Eliquis which is on hold Hypothyroidism Thank you very much for the opportunity to participate in the care of this patient Time Spent With Patient Time: Total time spent is greater than 50% in coordination of care (as documented) at patient's floor/unit and/or counseling patient:
--- NOTE | 2025-06-01 22:15 | XR_ITS ---
Examination: Abdomen AP single view Technique: AP portable supine abdomen, single view Exam date and time: June 01, 2025, 1022 hrs. Indications: Abdominal pain and distention today, 13 hour delayed film post small bowel series Findings: Contrast in quite distended small bowel loops although minimal contrast is present in the colon Impression: Small bowel obstruction pattern Recommend follow-up KUBs 6:00 AM
[2025-06-02] VITALS (9 sets, daily range): BP systolic 112–137; BP diastolic 60–95; PULSE 60–88; RESP 12–17; TEMP 36.2–36.9; O2SAT 93–99
[2025-06-02 05:32] LABS: Basophils # (Auto) 0.0 Thou/mm3 (0.0-0.2); Basophils % (Auto) 0 % (0-2.5); Eosinophils # (Auto) 0.0 Thou/mm3 (0.0-0.5); Eosinophils % (Auto) 0 % (0-10); Hematocrit 27.6 % (41.0-53.0); Hemoglobin 9.1 g/dL (13.5-16.0); Immature Granulocytes Auto 0.02 Thou/mm3 (0.00-0.00); Lymphocytes # (Auto) 1.0 Thou/mm3 (1.0-4.8); Lymphocytes % (Auto) 16 % (10-50); Mean Corpuscular HGB Conc 33.0 g/dl (31.0-37.0); Mean Corpuscular Hemoglobin 30.2 pg (25.0-35.0); Mean Corpuscular Volume 92 fL (80-100); Monocytes # (Auto) 0.8 Thou/mm3 (0.0-0.8); Monocytes % (Auto) 13 % (0-12); Neutrophils # (Auto) 4.6 Thou/mm3 (1.8-7.7); Neutrophils % (Auto) 71 % (37-80); Nucleated Red Blood Cell # 0.00 Thou/mm3 (0.00-0.00); Nucleated Red Blood Cell % 0 /100 WBC (0); Platelet Count 182 Thou/mm3 (140-440); RDW Standard Deviation 52.5 fL (35.1-43.9); Red Blood Count 3.01 Miln/mm3 (4.50-5.90); White Blood Count 6.5 Thou/mm3 (3.8-10.6)
[2025-06-02] MEDS: LEVOTHYROXINE SODIUM 100 MCG TABLET 200 MCG PO (05:39)
[2025-06-02] MEDS: LEVOTHYROXINE SODIUM 25 MCG TABLET PO (05:39)
[2025-06-02 05:59] LABS: Anion Gap 10 (7-16); BUN/Creatinine Ratio 28 Ratio (12-20); Blood Urea Nitrogen 53 mg/dL (9-23); Calcium 8.0 mg/dL (8.3-10.6); Carbon Dioxide 22.0 mMol/L (20.0-31.0); Chloride 109 mMol/L (98-107); Creatinine (Component) 1.9 mg/dL (0.6-1.3); Estimated Creatinine Clearance 31.6 mL/min (>60); Glucose 94 mg/dL (74-106); Magnesium 2.1 mg/dL (1.6-2.6); Osmolality,Calculated 295 (275-295); Phosphorous 4.4 mg/dL (2.4-5.1); Potassium 4.3 mMol/L (3.4-5.1); Sodium 141 mMol/L (136-145); eGFR 37 See Note
--- NOTE | 2025-06-02 06:15 | XR_ITS ---
Examination: Abdomen AP single view Technique: AP portable supine abdomen, single view Exam date and time: June 02, 2025, 0610 hrs. Indications: Abdominal distention this week, small bowel obstruction pattern on CT abdomen pelvis May 31, 2025, 21 hour delayed film post small bowel series Findings: Air distended small bowel loops but most of the contrast is in the colon Impression: Negative for complete small bowel obstruction No further films are needed
[2025-06-02] MEDS: PANTOPRAZOLE 40 MG TABLET PO ×2 (08:40→20:24)
[2025-06-02] MEDS: IRON SUCROSE CPLX INJ 20 MG/ML VIAL 5 ML 200 MG IVP (08:40)
[2025-06-02] MEDS: CALCIUM CARBONATE 600 MG TABLET PO (08:40)
[2025-06-02] MEDS: RINGERS LACTATED 1000 ML 1,000 ML 75 ML IV ×2 (08:41→23:45)
--- NOTE | 2025-06-02 10:18 | PC.SS ---
Addendum entered by JOSE RAFAEL Mitchell 06/02/25 15:22: rounding note: pending gi to evaluate, sbo. Original Note: SS update: pending colonoscopy.
--- NOTE | 2025-06-02 13:22 | ESPR_ITS ---
<Statement entered by Roger Wei MD - 06/02/25 13:55> No acute overnight events but noted to have had approximately 4000 cc of output from NG tube and approximately 300 to 400 cc output during dayshift. Although small bowel series showed contrast in colon, spoke to GI and stated to empty current canister, place on suctioning and he will evaluate later and make a decision whether to start GoLytely prep for evaluation of GI bleed or to continue with NG tube therapy. Otherwise, patient appears to be more comfortable compared to prior, vital signs stable, hemoglobin stable, and CHEM panel shows improved renal function. Will await further recommendations. ----- Note reviewed and agree with care plan as documented. Please refer to the note below for further details. Plan discussed with attending physician Dr. Bowen Wei MD PGY-2 Internal Medicine Documentation for date of: 06/02/25 Subjective Subjective Interval history: No acute overnight events. Seen and examined at bedside and patient states that he feels much better compared to yesterday. Denies any nausea or vomiting. Patient has had 4.4L of collected fluids through NGT suction yesterday and another 300c this AM before the suction was turned off. Abdominal series the latest film showed most contrast in the colon, negative for SBO. Unclear at this point about presence or lack thereof an obstruction given the large output through NGT. Additionally, patient has been provided ice chips, which may be contributing to large suction. Placed patient on strict NPO. Dr. Perry will evaluate the collected suctioned fluid later today and assess the safety of Golytely administration in terms of risk of aspiration. Exam Vital Signs Temp Pulse Resp BP Pulse Ox O2 Del Method O2 Flow Rate 98.4 F 88 16 131/76 H 99 Room Air 3 06/02/25 12:06/02/25 12:06/02/25 12:06/02/25 12:06/02/25 12:06/02/25 12:05/30/25 18:35 Narrative Exam GENERAL: AOx3, no acute distress, lying up in bed comfortably with NG tube in place HEENT: NC/AT, mucous membranes moist, bilateral sclera anicteric, R scabbed laceration medial aspect of R eyebrow CARDIOVASCULAR: regular rate and rhythm, S1/S2 present, no murmurs appreciated PULMONARY: clear to auscultation bilaterally, no rales/rhonchi/wheezes ABDOMINAL: soft,non-distended, and non-tender. no rebound/guarding, bowel sounds diminished, EXTREMITIES: no peripheral edema SKIN: warm and dry, no rashes NEURO: CN II-XII grossly intact, no focal deficits, alert, following commands Objective Labs 06/03/25 05:35 06/03/25 05:35 Labs: Laboratory Results - last 24 hr 06/02/25 05:25 WBC 6.5 RBC 3.01 L Hgb 9.1 L Hct 27.6 L MCV 92 MCH 30.2 MCHC 33.0 RDW Std Deviation 52.5 H Plt Count 182 Neut % (Auto) 71 Lymph % (Auto) 16 [place] % (Auto) 13 H Eos % (Auto) 0 Baso % (Auto) 0 Neut # (Auto) 4.6 Lymph # (Auto) 1.0 [place] # (Auto) 0.8 Eos # (Auto) 0.0 Baso # (Auto) 0.0 Immature Gran # (Auto) 0.02 H Absolute Nucleated RBC 0.00 Immature Gran % 0 Nucleated RBC % 0 Sodium 141 Potassium 4.3 D Chloride 109 H Carbon Dioxide 22.0 Anion Gap 10 BUN 53 H Creatinine 1.9 H Estim Creat Clear Calc 31.6 L eGFR 37 L BUN/Creatinine Ratio 28 H Glucose 94 Calculated Osmolality 295 Calcium 8.0 L Phosphorus 4.4 Magnesium 2.1 Quality Measures Quality Measures none Advance care planning discussed with:: patient Assessment & Plan Assessment Current Active Medications: Generic Name Dose Route Start Last Admin Trade Name Lmq PRN Reason Stop Dose Admin Acetaminophen 1,000 mg 06/01/25 06:50 06/01/25 17:11 Acetaminophen 500 Mg Tablet PO 06/28/25 21:45 1,000 mg Q6HR PRN Administration Fever >99 or Pain 1-4 Hydralazine HCl 10 mg 05/30/25 11:00 06/02/25 05:29 Hydralazine Inj 20 Mg/Ml Vial IVP 06/29/25 10:59 Not Given Q8HR DARYL Protocol Lactated Ringer's 1,000 mls @ 75 mls/hr 06/01/25 07:31 06/02/25 08:41 Lactated Ringers IV 07/01/25 07:30 75 mls/hr .[id number] DARYL Administration Iron Sucrose 200 mg 06/02/25 09:00 06/02/25 08:40 Iron Sucrose Cplx Inj 20 Mg/Ml Vial 5 Ml IVP 06/06/25 09:01 200 mg DAILY DARYL Administration Levothyroxine Sodium 200 mcg 05/30/25 06:00 06/02/25 05:39 Levothyroxine Sodium 100 Mcg Tablet PO 06/29/25 05:59 200 mcg ACBR DARYL Administration Levothyroxine Sodium 25 mcg 05/30/25 06:00 06/02/25 05:39 Levothyroxine Sodium 25 Mcg Tablet PO 06/29/25 05:59 25 mcg ACBR DARYL Administration Ondansetron HCl 4 mg 05/30/25 05:38 05/31/25 13:48 Ondansetron Inj 2 Mg/Ml Inj 2 Ml IVP 06/28/25 19:45 4 mg Q4HR PRN Administration NAUSEA OR VOMITING Protocol Pantoprazole Sodium 40 mg 06/02/25 09:00 06/02/25 08:40 Pantoprazole 40 Mg Tablet PO 07/02/25 08:59 40 mg BID DARYL Administration Sertraline HCl 100 mg 05/30/25 21:00 06/01/25 20:51 Sertraline Hcl 25 Mg Tablet PO 06/29/25 20:59 100 mg HS DARYL Administration Rene Burke Salazar is a 74-year-old male past medical significant for hypertension, hypothyroidism, depression, A-fib on Eliquis, s/p colorectal anastomosis, colostomy reversal (2023) who is admitted for GI bleed work-up but now complicated by SBO. #Upper versus lower GI bleed #Hematochezia #Normocytic anemia, chronic #History of colorectal reanastomosis #S/p reverse colostomy Underwent procedure on April 16, 2024 under care of general surgeon, Dr. Robb, for removal of colostomy. Now presents with few days of hematochezia, abdominal pain, nonbloody emesis and nausea. Initial hemoglobin of 10.5 (baseline 9.6- 10.3) and hematocrit of 32.4. Stool occult positive. EGD (05/30): no source of UGIBD but poor visibility noted due to presence of large amount of bile and food, suspect gastric motility disorder vs SBO XR abdomen: moderate to large amounts of stool throughout the colon, central dilated small bowel loops, no free air Abdominal series 21h-delayed film showed air distended small bowel loops, but most of the contrast in the colon. Negative for complete small bowel obstruction. However, there was still concern over an obstructive pattern as the patient had had 4.4L of suctioned fluids through the NGT yesterday. - GI consulted, appreciate recs - NGT readjusted, reset on low intermittent suction, and bucket cleared for reassessment - Colonoscopy prior to discharge when the nausea, vomiting, and gastric dysmotility improves - Venofer 200 mg IV daily - LR at 75 cc/h - Protonix 40 mg IV BID - Ondansetron for nausea/vomiting - Continue to monitor H&H and transfuse if hemoglobin <7 #Syncope Likely orthostatic hypotension 2/2 hypovolemia related to GI bleed. Also consider cardiogenic cause as patient does have atrial fibrillation. Orthostatic vitals show 122/71 (lying), 104/68 (sitting), and 114/73 (standing) -> negative - Recommend rise from supine to standing slowly, compression stockings - IV fluids for volume repletion #Atrial fibrillation, slow ventricular rate #HFrEF (40-45%, 05/2025) History of atrial fibrillation on Eliquis 5 mg, currently held in light of GIB EKG showed atrial fibrillation with slow ventricular response with rate 54 and QTc 452 CHADsVAS score 2 ->?2.9% risk of stroke/TIA/systemic embolism HAS BLED score 3 -> high risk for major bleed - Cardiology consulted, appreciate recs - Held eliquis due to concern for UGIB - Continue to monitor telemetry - Keep K > 4 and Mg > 2 - Continue to hold GDMT in the light of large volume removed through NGT; BP and HR WNL. #CKD, stage III #Hyperchloremia Creatinine 1.9( baseline 2). GFR37. BUN/Cr 32 BUN 53/39/27 elevated as a compound effect of GI bleed and fluid restriction. Hyperchloremia, likely secondary dehydration and fluid loss in general. - Monitor renal panel - IV fluids hydration #Hypertension Per history, patient is on amlodipine 5 mg daily, HCTZ 12.5 mg daily, and lisinopril 40 mg daily at home - Hydralazine 10 mg IV q8h (hold if SBP <140) #Hypothyroidism - Levothyroxine 225 mcg ACBR #Hyperphosphatemia PO4- 5.5 (05/31) - Sevelamer carbonate PO 400 mg x2 #Depression - Resume home sertraline 100mg PO Hospital management: Disposition: tele for management of GIB Lines: peripheral IV Diet: NPO GI prophylaxis: pantoprazole CODE STATUS: Full code ----- This case was discussed with my attending physician, Dr. Flores, and senior resident, Dr Eriberto Clifford. Misael Metz, DO PGY I Attending Provider Attestation/Addendum I attest that I was physically present for the evaluation, physical examination, lab and imaging review of the patient with the residents. I discussed the case with the residents and agree with the findings and plans of care as documented above. Kar Wiseman MD
[2025-06-02] MEDS: ACETAMINOPHEN 500 MG TABLET 1000 MG PO (13:51)
--- NOTE | 2025-06-02 15:32 | ESPR_ITS ---
Documentation for date of: 06/02/25 Subjective Subjective Interval history: Patient seen and examined at bedside. Telemetry shows atrial fibrillation rate 80-low 80s. BP 110-130/60-70s. Saturating 94% RA. Patient is feeling well today, NG tube still draining and abdominal pain essentially resolved. Hgb stable low 9.2, K 4.3, BUN increased from 18 to 22 as patient has been started on LR, BUN still elevated 53, Cr decreased from 2.3 to 1.9, Mg 2.1. Continue to monitor telemetry and start GDMT once BP tolerates and after patient's GIB is resolved. Exam Vital Signs Temp Pulse Resp BP Pulse Ox O2 Del Method O2 Flow Rate 98.4 F 88 16 120/63 99 Room Air 3 06/02/25 12:00 06/02/25 12:00 06/02/25 12:00 06/02/25 13:50 06/02/25 12:00 06/02/25 12:00 05/30/25 18:35 Narrative Exam GENERAL: AOx3, no acute distress, lying up in bed comfortably with NG tube in place draining HEENT: NC/AT, mucous membranes moist, bilateral sclera anicteric, R scabbed laceration medial aspect of R eyebrow CARDIOVASCULAR: regular rate and rhythm, S1/S2 present, no murmurs appreciated PULMONARY: clear to auscultation bilaterally, no rales/rhonchi/wheezes ABDOMINAL: soft,non-distended, no rebound/guarding, bowel sounds diminished, m ild diffuse abdominal tenderness EXTREMITIES: no peripheral edema SKIN: warm and dry, no rashes NEURO: CN II-XII grossly intact, no focal deficits, alert, following commands Objective Labs 06/02/25 05:25 06/02/25 05:25 Labs: Laboratory Results - last 24 hr 06/02/25 05:25 WBC 6.5 RBC 3.01 L Hgb 9.1 L Hct 27.6 L MCV 92 MCH 30.2 MCHC 33.0 RDW Std Deviation 52.5 H Plt Count 182 Neut % (Auto) 71 Lymph % (Auto) 16 [place] % (Auto) 13 H Eos % (Auto) 0 Baso % (Auto) 0 Neut # (Auto) 4.6 Lymph # (Auto) 1.0 [place] # (Auto) 0.8 Eos # (Auto) 0.0 Baso # (Auto) 0.0 Immature Gran # (Auto) 0.02 H Absolute Nucleated RBC 0.00 Immature Gran % 0 Nucleated RBC % 0 Sodium 141 Potassium 4.3 D Chloride 109 H Carbon Dioxide 22.0 Anion Gap 10 BUN 53 H Creatinine 1.9 H Estim Creat Clear Calc 31.6 L eGFR 37 L BUN/Creatinine Ratio 28 H Glucose 94 Calculated Osmolality 295 Calcium 8.0 L Phosphorus 4.4 Magnesium 2.1 Quality Measures Quality Measures none Advance care planning discussed with:: patient Assessment & Plan Assessment Current Active Medications: Generic Name Dose Route Start Last Admin Trade Name Freq PRN Reason Stop Dose Admin Acetaminophen 1,000 mg 06/01/25 06:50 06/02/25 13:51 Acetaminophen 500 Mg Tablet PO 06/28/25 21:45 1,000 mg Q6HR PRN Administration Fever >99 or Pain 1-4 Hydralazine HCl 10 mg 05/30/25 11:00 06/02/25 13:50 Hydralazine Inj 20 Mg/Ml Vial IVP 06/29/25 10:59 Not Given Q8HR DARYL Protocol Lactated Ringer's 1,000 mls @ 75 mls/hr 06/01/25 07:31 06/02/25 08:41 Lactated Ringers IV 07/01/25 07:30 75 mls/hr .[id number] DARYL Administration Iron Sucrose 200 mg 06/02/25 09:00 06/02/25 08:40 Iron Sucrose Cplx Inj 20 Mg/Ml Vial 5 Ml IVP 06/06/25 09:01 200 mg DAILY DARYL Administration Levothyroxine Sodium 200 mcg 05/30/25 06:00 06/02/25 05:39 Levothyroxine Sodium 100 Mcg Tablet PO 06/29/25 05:59 200 mcg ACBR DARYL Administration Levothyroxine Sodium 25 mcg 05/30/25 06:00 06/02/25 05:39 Levothyroxine Sodium 25 Mcg Tablet PO 06/29/25 05:59 25 mcg ACBR DARYL Administration Ondansetron HCl 4 mg 05/30/25 05:38 05/31/25 13:48 Ondansetron Inj 2 Mg/Ml Inj 2 Ml IVP 06/28/25 19:45 4 mg Q4HR PRN Administration NAUSEA OR VOMITING Protocol Pantoprazole Sodium 40 mg 06/02/25 09:00 06/02/25 08:40 Pantoprazole 40 Mg Tablet PO 07/02/25 08:59 40 mg BID DARYL Administration Sertraline HCl 100 mg 05/30/25 21:00 06/01/25 20:51 Sertraline Hcl 25 Mg Tablet PO 06/29/25 20:59 100 mg HS DARYL Administration Plan Burke Salazar 74M pmhx of HTN, atrial fibrillation on Eliquis, hypothyroidism, depression, s/p colorectal anastomosis, colostomy reversal (2023) presented to [facility] ED on 05/29 for abdominal pain, N/V, and hematochezia. Cardiology was consulted for echo results and atrial fibrillation. #HFrEF (40-45%, 05/2025) 08/28/23 Echo showed Normal LV size and function. Estimated EF 55-60% Normal RV size and function. Mild MR, Trace TR. IVC not well visualized. 05/29/25 Echo showed Normal left ventricular size. EF estimated 40-45%. Mild global Hypokinesis. Normal right ventricular size and function. Estimated RVSP 58 mmHg. Atleast moderate pulmonary HTN. Moderate dilated LA and RA. Mild MAC. Moderate Aortic valve sclerosis without stenosis. Moderate - severe TR and moderate MR. Trace AR. No pericardial effusion. Likely tachycardia induced vs chronic rhythm uncontrolled induced cardiomyopathy not on GDMT. Plan: - Will need to be on GDMT once BP tolerates and post management of GIB with reevaluation with repeat echo post 3 months of adequate GDMT - Caution with maintenance fluids given patient's hx of HFrEF, if patient develops volume overload such as new SOB, leg swelling or orthopnea, stop IVF and diurese if necessary - Telemetry for cardiac monitoring - Keep K>4 and Mg>2 at all times #Atrial fibrillation, slow ventricular rate on Eliquis Per history, also reports taking Eliquis 5 mg QD not BID. During current hospital stay, rate has been bradycardic and previous admission in 04/2024 HR 70- 100. EKGs since 2022 report atrial fibrillation. Plan: - No indication for medical or interventional treatment, such as medication or cardioversion, at this time as rate is low normal and patient is having GIB - Follow up outpatient cardiology for further management and follow up #HTN Per history, patient is on amlodipine 5 mg QD, HCTZ 12.5 mg QD and lisinopril 40 mg QD. Plan: - Recommend to start GDMT if BP allows - CTM vitals #Syncope 2/2 acute post hemorrhagic anemia #Upper versus lower GI bleed #Hematochezia #Normocytic anemia, chronic #Hx Colorectal reanastomosis #S/P Reverse colostomy #CKD, stage III #Hyperchloremia #Hypothyroidism #Depression Chronic medical conditions nonpertinent to the following presentation Plan: - Management per primary team Thank you for the consult and allowing participation in patient's care. Plan of care discussed with attending Dr. Joseph. Massiel Clifford, DO PGY-1 Internal Medicine Attending Provider Attestation/Addendum I have personally seen and examined the patient separately on the above date of service and discussed the plan of care with the resident. I reviewed the resident Dr. Massiel Clifford consultation progress note and agree with the resident findings and plan in the note above and have also edited the documentation to reflect my findings and plan. Cecil Joseph M.D. Interventional Cardiology
--- NOTE | 2025-06-02 20:02 | PD.IMPROG ---
Documentation for date of: 06/02/25 Subjective Subjective Interval history: At least 1000 cc fluid suction through the NGT from the stomach without the ice chips This morning KUB shows contrast in the right colon however dilated loops of small bowel are still there At the moment patient is not a candidate for colonoscopy prep as he will aspirate Exam Vital Signs Temp Pulse Resp BP Pulse Ox O2 Del Method O2 Flow Rate 97.1 F 66 14 120/67 98 Room Air 3 06/02/25 16:00 06/02/25 16:00 06/02/25 16:00 06/02/25 16:00 06/02/25 16:00 06/02/25 16:00 05/30/25 18:35 Objective Labs 06/02/25 05:25 06/02/25 05:25 Labs: Laboratory Results - last 24 hr 06/02/25 05:25 WBC 6.5 RBC 3.01 L Hgb 9.1 L Hct 27.6 L MCV 92 MCH 30.2 MCHC 33.0 RDW Std Deviation 52.5 H Plt Count 182 Neut % (Auto) 71 Lymph % (Auto) 16 [place] % (Auto) 13 H Eos % (Auto) 0 Baso % (Auto) 0 Neut # (Auto) 4.6 Lymph # (Auto) 1.0 [place] # (Auto) 0.8 Eos # (Auto) 0.0 Baso # (Auto) 0.0 Immature Gran # (Auto) 0.02 H Absolute Nucleated RBC 0.00 Immature Gran % 0 Nucleated RBC % 0 Sodium 141 Potassium 4.3 D Chloride 109 H Carbon Dioxide 22.0 Anion Gap 10 BUN 53 H Creatinine 1.9 H Estim Creat Clear Calc 31.6 L eGFR 37 L BUN/Creatinine Ratio 28 H Glucose 94 Calculated Osmolality 295 Calcium 8.0 L Phosphorus 4.4 Magnesium 2.1 Impressions Impression: Small bowel obstruction resolving Small bowel ileus Patient to have ice chips Continue intermittent suction High risk for aspiration further GoLytely prep No colonoscopy at this time and no GoLytely prep Assessment & Plan A&P Narrative # Acute GI bleed with drop in hemoglobin hematocrit and melanotic stools and rectal examination showing grossly Hemoccult positivity Plan N.p.o. Serial CBCs IV Protonix Consent obtained for fiberoptic esophagogastroduodenoscopy with possible biopsy possible therapeutic intervention under intravenous moderate sedation Will follow the patient Other medical problems include Chronic atrial fibrillation on Eliquis which is on hold Hypothyroidism Thank you very much for the opportunity to participate in the care of this patient Time Spent With Patient Time: Total time spent is greater than 50% in coordination of care (as documented) at patient's floor/unit and/or counseling patient:
[2025-06-02] MEDS: SERTRALINE HCL 25 MG TABLET 100 MG PO (20:24)
[2025-06-03] VITALS (8 sets, daily range): BP systolic 118–142; BP diastolic 50–74; PULSE 58–74; RESP 16–19; TEMP 36.2–36.9; O2SAT 96–100; BMI 21.9
[2025-06-03] MEDS: LEVOTHYROXINE SODIUM 100 MCG TABLET 200 MCG PO (05:08)
[2025-06-03] MEDS: LEVOTHYROXINE SODIUM 25 MCG TABLET PO (05:08)
[2025-06-03 05:54] LABS: Basophils # (Auto) 0.0 Thou/mm3 (0.0-0.2); Basophils % (Auto) 0 % (0-2.5); Eosinophils # (Auto) 0.1 Thou/mm3 (0.0-0.5); Eosinophils % (Auto) 1 % (0-10); Hematocrit 27.5 % (41.0-53.0); Hemoglobin 8.9 g/dL (13.5-16.0); Immature Granulocytes Auto 0.02 Thou/mm3 (0.00-0.00); Lymphocytes # (Auto) 1.3 Thou/mm3 (1.0-4.8); Lymphocytes % (Auto) 23 % (10-50); Mean Corpuscular HGB Conc 32.4 g/dl (31.0-37.0); Mean Corpuscular Hemoglobin 29.8 pg (25.0-35.0); Mean Corpuscular Volume 92 fL (80-100); Monocytes # (Auto) 0.6 Thou/mm3 (0.0-0.8); Monocytes % (Auto) 10 % (0-12); Neutrophils # (Auto) 3.7 Thou/mm3 (1.8-7.7); Neutrophils % (Auto) 65 % (37-80); Nucleated Red Blood Cell # 0.00 Thou/mm3 (0.00-0.00); Nucleated Red Blood Cell % 0 /100 WBC (0); Platelet Count 196 Thou/mm3 (140-440); RDW Standard Deviation 50.4 fL (35.1-43.9); Red Blood Count 2.99 Miln/mm3 (4.50-5.90); White Blood Count 5.7 Thou/mm3 (3.8-10.6)
[2025-06-03 06:38] LABS: Anion Gap 10 (7-16); BUN/Creatinine Ratio 27 Ratio (12-20); Blood Urea Nitrogen 43 mg/dL (9-23); Calcium 8.6 mg/dL (8.3-10.6); Carbon Dioxide 21.1 mMol/L (20.0-31.0); Chloride 110 mMol/L (98-107); Creatinine (Component) 1.6 mg/dL (0.6-1.3); Estimated Creatinine Clearance 37.6 mL/min (>60); Glucose 75 mg/dL (74-106); Magnesium 2.4 mg/dL (1.6-2.6); Osmolality,Calculated 291 (275-295); Phosphorous 3.1 mg/dL (2.4-5.1); Potassium 3.9 mMol/L (3.4-5.1); Sodium 141 mMol/L (136-145); eGFR 45 See Note
--- NOTE | 2025-06-03 07:38 | ESPR_ITS ---
Documentation for date of: 06/03/25 Subjective Subjective Interval history: Patient was seen and examined at bedside. Patient still has significant output through the NG tube. yesterday he drained 1 L for that reason patient will not be able to have a colonoscopy due to the risk of aspiration during preparation. Heart rate today is 66, irregularly irregular, blood pressure 121/63. Patient denied any shortness of breath or chest pain. his potassium is 3.9. Exam Vital Signs Temp Pulse Resp BP Pulse Ox O2 Del Method O2 Flow Rate 98.0 F 66 17 121/63 100 Room Air 3 06/03/25 04:00 06/03/25 05:08 06/03/25 04:00 06/03/25 05:08 06/03/25 04:00 06/03/25 04:00 05/30/25 18:35 Narrative Exam GEN: AOx3, able to speak full sentences, NG tube in place and draining HEENT: NC/ R scabbed laceration medial aspect of R eyebrow, PERRLA, oral mucosa moist, neck supple CVS: RRR, S1-S2 present, no murmurs appreciated RESP: CTAB GI: soft,non distended, non tender, NBS MSK: able to move all 4 limbs, no lower extremity edema SKIN: warm and dry CERTIFIED REGISTERED LOCKSMITH: CN II-XII and Sensation grossly intact. Objective Labs 06/04/25 05:33 06/04/25 05:33 Labs: Laboratory Results - last 24 hr 06/03/25 05:35 WBC 5.7 RBC 2.99 L Hgb 8.9 L Hct 27.5 L MCV 92 MCH 29.8 MCHC 32.4 RDW Std Deviation 50.4 H Plt Count 196 Neut % (Auto) 65 Lymph % (Auto) 23 [place] % (Auto) 10 Eos % (Auto) 1 Baso % (Auto) 0 Neut # (Auto) 3.7 Lymph # (Auto) 1.3 [place] # (Auto) 0.6 Eos # (Auto) 0.1 Baso # (Auto) 0.0 Immature Gran # (Auto) 0.02 H Absolute Nucleated RBC 0.00 Immature Gran % 0 Nucleated RBC % 0 Sodium 141 Potassium 3.9 Chloride 110 H Carbon Dioxide 21.1 Anion Gap 10 BUN 43 H Creatinine 1.6 H Estim Creat Clear Calc 37.6 L eGFR 45 L BUN/Creatinine Ratio 27 H Glucose 75 Calculated Osmolality 291 Calcium 8.6 Phosphorus 3.1 Magnesium 2.4 Quality Measures Quality Measures none Advance care planning discussed with:: patient Assessment & Plan Assessment Current Active Medications: Generic Name Dose Route Start Last Admin Trade Name Freq PRN Reason Stop Dose Admin Acetaminophen 1,000 mg 06/01/25 06:50 06/02/25 13:51 Acetaminophen 500 Mg Tablet PO 06/28/25 21:45 1,000 mg Q6HR PRN Administration Fever >99 or Pain 1-4 Hydralazine HCl 10 mg 05/30/25 11:00 06/03/25 05:08 Hydralazine Inj 20 Mg/Ml Vial IVP 06/29/25 10:59 Not Given Q8HR DARYL Protocol Lactated Ringer's 1,000 mls @ 75 mls/hr 06/01/25 07:31 06/02/25 23:45 Lactated Ringers IV 07/01/25 07:30 75 mls/hr .[id number] DARYL Administration Iron Sucrose 200 mg 06/02/25 09:00 06/02/25 08:40 Iron Sucrose Cplx Inj 20 Mg/Ml Vial 5 Ml IVP 06/06/25 09:01 200 mg DAILY DARYL Administration Levothyroxine Sodium 200 mcg 05/30/25 06:00 06/03/25 05:08 Levothyroxine Sodium 100 Mcg Tablet PO 06/29/25 05:59 200 mcg ACBR DARYL Administration Levothyroxine Sodium 25 mcg 05/30/25 06:00 06/03/25 05:08 Levothyroxine Sodium 25 Mcg Tablet PO 06/29/25 05:59 25 mcg ACBR DARYL Administration Ondansetron HCl 4 mg 05/30/25 05:38 05/31/25 13:48 Ondansetron Inj 2 Mg/Ml Inj 2 Ml IVP 06/28/25 19:45 4 mg Q4HR PRN Administration NAUSEA OR VOMITING Protocol Pantoprazole Sodium 40 mg 06/02/25 09:00 06/02/25 20:24 Pantoprazole 40 Mg Tablet PO 07/02/25 08:59 40 mg BID DARYL Administration Sertraline HCl 100 mg 05/30/25 21:00 06/02/25 20:24 Sertraline Hcl 25 Mg Tablet PO 06/29/25 20:59 100 mg HS DARYL Administration Plan Burke Salazar 74M pmhx of HTN, atrial fibrillation on Eliquis, hypothyroidism, depression, s/p colorectal anastomosis, colostomy reversal (2023) presented to [facility] ED on 05/29 for abdominal pain, N/V, and hematochezia. Cardiology was consulted for echo results and atrial fibrillation. #HFrEF (40-45%, 05/2025) 08/28/23 Echo showed Normal LV size and function. Estimated EF 55-60% Normal RV size and function. Mild MR, Trace TR. IVC not well visualized. 05/29/25 Echo showed Normal left ventricular size. EF estimated 40-45%. Mild global Hypokinesis. Normal right ventricular size and function. Estimated RVSP 58 mmHg. Atleast moderate pulmonary HTN. Moderate dilated LA and RA. Mild MAC. Moderate Aortic valve sclerosis without stenosis. Moderate - severe TR and moderate MR. Trace AR. No pericardial effusion. Likely tachycardia induced vs chronic rhythm uncontrolled induced cardiomyopathy not on GDMT. Plan: - Will need to be on GDMT once BP tolerates and post management of GIB with reevaluation with repeat echo post 3 months of adequate GDMT - Caution with maintenance fluids given patient's hx of HFrEF, if patient develops volume overload such as new SOB, leg swelling or orthopnea, stop IVF and diurese if necessary - Telemetry for cardiac monitoring - Keep K>4 and Mg>2 at all times #Atrial fibrillation, slow ventricular rate on Eliquis Per history, also reports taking Eliquis 5 mg QD not BID. During current hospital stay, rate has been bradycardic and previous admission in 04/2024 HR 70- 100. EKGs since 2022 report atrial fibrillation. Plan: - No indication for medical or interventional treatment, such as medication or cardioversion, at this time as rate is low normal and patient is having GIB - Follow up outpatient cardiology for further management and follow up #HTN Per history, patient is on amlodipine 5 mg QD, HCTZ 12.5 mg QD and lisinopril 40 mg QD. Plan: - Recommend to start GDMT if BP allows - CTM vitals #Syncope 2/2 acute post hemorrhagic anemia #Upper versus lower GI bleed #Hematochezia #Normocytic anemia, chronic #Hx Colorectal reanastomosis #S/P Reverse colostomy #CKD, stage III #Hyperchloremia #Hypothyroidism #Depression Chronic medical conditions nonpertinent to the following presentation Plan: - Management per primary team Thank you for the consult and allowing participation in patient's care. - Patient's plan and care discussed with my attending, Dr. Jake Lim MD Internal Medicine PGY-3 Attending Provider Attestation/Addendum I have personally seen and examined the patient separately on the above date of service and discussed the plan of care with the resident. I reviewed the resident Dr. Lim consultation progress note and agree with the resident findings and plan in the note above and have also edited the documentation to reflect my findings and plan. Cecil Joseph M.D. Interventional Cardiology
--- NOTE | 2025-06-03 08:14 | ESPR_ITS ---
Documentation for date of: 06/03/25 Subjective Subjective Interval history: No acute overnight events. Seen and examined at bedside and patient resting comfortably in bed. Denies any nausea or abdominal pain. NG tube continues to suction about 400 cc of fluid and appears to have blood in tubing. Reached out to general surgery who recommends conservative management given decreased NG tube output and benign exam, and started Reglan. Touch base with GI as well and aware, recommending initiation of PPN. Reached out to dietitian who will initiate. Exam Vital Signs Temp Pulse Resp BP Pulse Ox O2 Del Method O2 Flow Rate 98.0 F 63 16 122/72 98 Room Air 3 06/03/25 08:00 06/03/25 08:00 06/03/25 08:00 06/03/25 08:00 06/03/25 08:00 06/03/25 08:00 05/30/25 18:35 Narrative Exam GENERAL: AOx3, no acute distress, lying up in bed comfortably with NG tube in place HEENT: NC/AT, mucous membranes moist, bilateral sclera anicteric, R scabbed laceration medial aspect of R eyebrow CARDIOVASCULAR: regular rate and rhythm, S1/S2 present, no murmurs appreciated PULMONARY: clear to auscultation bilaterally, no rales/rhonchi/wheezes ABDOMINAL: soft,non-distended, and non-tender. no rebound/guarding, bowel sounds diminished, EXTREMITIES: no peripheral edema SKIN: warm and dry, no rashes NEURO: CN II-XII grossly intact, no focal deficits, alert, following commands Objective Labs 06/04/25 05:33 06/04/25 05:33 Labs: Laboratory Results - last 24 hr 06/03/25 05:35 WBC 5.7 RBC 2.99 L Hgb 8.9 L Hct 27.5 L MCV 92 MCH 29.8 MCHC 32.4 RDW Std Deviation 50.4 H Plt Count 196 Neut % (Auto) 65 Lymph % (Auto) 23 [place] % (Auto) 10 Eos % (Auto) 1 Baso % (Auto) 0 Neut # (Auto) 3.7 Lymph # (Auto) 1.3 [place] # (Auto) 0.6 Eos # (Auto) 0.1 Baso # (Auto) 0.0 Immature Gran # (Auto) 0.02 H Absolute Nucleated RBC 0.00 Immature Gran % 0 Nucleated RBC % 0 Sodium 141 Potassium 3.9 Chloride 110 H Carbon Dioxide 21.1 Anion Gap 10 BUN 43 H Creatinine 1.6 H Estim Creat Clear Calc 37.6 L eGFR 45 L BUN/Creatinine Ratio 27 H Glucose 75 Calculated Osmolality 291 Calcium 8.6 Phosphorus 3.1 Magnesium 2.4 Quality Measures Quality Measures none Advance care planning discussed with:: patient Assessment & Plan Assessment Current Active Medications: Generic Name Dose Route Start Last Admin Trade Name Freq PRN Reason Stop Dose Admin Acetaminophen 1,000 mg 06/01/25 06:50 06/02/25 13:51 Acetaminophen 500 Mg Tablet PO 06/28/25 21:45 1,000 mg Q6HR PRN Administration Fever >99 or Pain 1-4 Lactated Ringer's 1,000 mls @ 75 mls/hr 06/01/25 07:31 06/02/25 23:45 Lactated Ringers IV 07/01/25 07:30 75 mls/hr .[id number] DARYL Administration Iron Sucrose 200 mg 06/02/25 09:00 06/02/25 08:40 Iron Sucrose Cplx Inj 20 Mg/Ml Vial 5 Ml IVP 06/06/25 09:01 200 mg DAILY DARYL Administration Levothyroxine Sodium 200 mcg 05/30/25 06:00 06/03/25 05:08 Levothyroxine Sodium 100 Mcg Tablet PO 06/29/25 05:59 200 mcg ACBR DARYL Administration Levothyroxine Sodium 25 mcg 05/30/25 06:00 06/03/25 05:08 Levothyroxine Sodium 25 Mcg Tablet PO 06/29/25 05:59 25 mcg ACBR DARYL Administration Ondansetron HCl 4 mg 05/30/25 05:38 05/31/25 13:48 Ondansetron Inj 2 Mg/Ml Inj 2 Ml IVP 06/28/25 19:45 4 mg Q4HR PRN Administration NAUSEA OR VOMITING Protocol Pantoprazole Sodium 40 mg 06/02/25 09:00 06/02/25 20:24 Pantoprazole 40 Mg Tablet PO 07/02/25 08:59 40 mg BID DARYL Administration Sertraline HCl 100 mg 05/30/25 21:00 06/02/25 20:24 Sertraline Hcl 25 Mg Tablet PO 06/29/25 20:59 100 mg HS DARYL Administration Rene Salazar is a 74-year-old male past medical significant for hypertension, hypothyroidism, depression, A-fib on Eliquis, s/p colorectal anastomosis, colostomy reversal (2023) who is admitted for GI bleed work-up but now complicated by SBO. #Upper versus lower GI bleed #Hematochezia #Normocytic anemia, chronic #History of colorectal reanastomosis #S/p reverse colostomy Underwent procedure on April 16, 2024 under care of general surgeon, Dr. Robb, for removal of colostomy. Now presents with few days of hematochezia, abdominal pain, nonbloody emesis and nausea. Initial hemoglobin of 10.5 (baseline 9.6- 10.3) and hematocrit of 32.4. Stool occult positive. EGD (05/30): no source of UGIBD but poor visibility noted due to presence of large amount of bile and food, suspect gastric motility disorder vs SBO - GI consulted, appreciate recs - NGT readjusted, reset on low intermittent suction, and bucket cleared for reassessment - Colonoscopy prior to discharge when the nausea, vomiting, and gastric dysmotility improves - Venofer 200 mg IV daily - LR at 75 cc/h - Protonix 40 mg IV BID - Ondansetron for nausea/vomiting - Continue to monitor H&H and transfuse if hemoglobin <7 #Small bowel obstruction, resolved #? Delayed gastric emptying XR abdomen: moderate to large amounts of stool throughout the colon, central dilated small bowel loops, no free air Abdominal series 21h-delayed film showed air distended small bowel loops, but most of the contrast in the colon. Negative for complete small bowel obstruction. However, there was still concern over an obstructive pattern as the patient had had 4.4L of suctioned fluids through the NGT. - General surgery consulted, appreciate recommendatioins - No plans for surgical intervention at this time given decreased amount of suctioned content and benign exam - Will continue to hold plans for colonoscopy - PPN started given that patient has been NPO > 72 hours - financial institution vice president consulted, appreciate recommendations #Syncope Likely orthostatic hypotension 2/2 hypovolemia related to GI bleed. Also consider cardiogenic cause as patient does have atrial fibrillation. Orthostatic vitals show 122/71 (lying), 104/68 (sitting), and 114/73 (standing) -> negative - Recommend rise from supine to standing slowly, compression stockings - IV fluids for volume repletion #Atrial fibrillation, slow ventricular rate #HFrEF (40-45%, 05/2025) History of atrial fibrillation on Eliquis 5 mg, currently held in light of GIB EKG showed atrial fibrillation with slow ventricular response with rate 54 and QTc 452 CHADsVAS score 2 ->?2.9% risk of stroke/TIA/systemic embolism HAS BLED score 3 -> high risk for major bleed - Cardiology consulted, appreciate recs - Held eliquis due to concern for UGIB - Continue to monitor telemetry - Keep K > 4 and Mg > 2 - Continue to hold GDMT in the light of large volume removed through NGT; BP and HR WNL. #CKD, stage III #Hyperchloremia Creatinine 1.9( baseline 2). GFR37. BUN/Cr 32 BUN 53/39/27 elevated as a compound effect of GI bleed and fluid restriction. Hyperchloremia, likely secondary dehydration and fluid loss in general. - Monitor renal panel - IV fluids hydration #Hypertension Per history, patient is on amlodipine 5 mg daily, HCTZ 12.5 mg daily, and lisinopril 40 mg daily at home - Hydralazine 10 mg IV q8h (hold if SBP <140) #Hypothyroidism - Levothyroxine 225 mcg ACBR #Hyperphosphatemia PO4- 5.5 (05/31) - Sevelamer carbonate PO 400 mg x2 #Depression - Resume home sertraline 100mg PO Hospital management: Disposition: tele for management of GIB Lines: peripheral IV Diet: NPO, PPN started GI prophylaxis: pantoprazole CODE STATUS: Full code ----- Plan discussed with attending physician Dr. Bowen Wei MD PGY-2 Internal Medicine Attending Provider Attestation/Addendum I attest that I was physically present for the evaluation, physical examination, lab and imaging review of the patient with the residents. I discussed the case with the residents and agree with the findings and plans of care as documented above. Kar Wiseman MD
[2025-06-03] MEDS: IRON SUCROSE CPLX INJ 20 MG/ML VIAL 5 ML 200 MG IVP (08:25)
[2025-06-03] MEDS: PANTOPRAZOLE 40 MG TABLET PO ×2 (08:25→20:36)
--- NOTE | 2025-06-03 12:20 | PD.SURCONS ---
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 In the interim pt has undergone EGD on 05/30 with findings of bilious secretions, approx 850cc, no other findings and pt has not been a candidate for colonoscopy as he cannot tolerate prep. He has had an NG in place and initially had a lot of output, but overnight last night he had about 320cc and so far today he has had approx 100cc. Pt reports he feels much better today compared to admission, he has no pain or nausea, is passing gas but has not had a BM. He has been taking a bit of ice chips which are being recorded by nursing and he is feeling hungry Pt's most recent AXR was 06/02, he had a small bowel series that was initiated on 06/01 and as of yesterday most of the contrast was visualized in the colon PMH: HTN, hypothyroidism, depression, afib on Eliquis, sigmoid volvulus PShx: Dutch procedure followed by colostomy reversal 2023 for sigmoid volvulus Meds: includes eliquis 5mg, levothyroxine, lisinopril, amlodipine Allergies: NKDA Review of Systems Review of Systems ROS Unobtainable: All systems reviewed & no additional complaints except as documented Meds Home Medications and Allergies Home Medications ?Medication ?Instructions ?Recorded ?Confirmed ?Type amlodipine 10 mg tablet 5 mg PO QDAY 08/27/23 05/29/25 History Held on 04/20/24. Instructions: Resume on 04/27/24. Hold for 1 week, monitor blood pressure, follow-up with PCP before restarting. lisinopril 40 mg tablet 40 mg PO QDAY 08/27/23 05/29/25 History omeprazole 40 mg capsule,delayed 40 mg PO QDAY 08/27/23 05/29/25 History release sertraline 100 mg tablet 100 mg PO HS 08/27/23 05/29/25 History furosemide 20 mg tablet 20 mg PO QDAY 02/25/24 05/29/25 History Held on 04/20/24. Instructions: Resume on 04/27/24. Hold for now, close monitor blood pressure, follow-up with PCP before restarting hydrochlorothiazide .5 mg capsule 12.5 mg PO QDAY 02/25/24 05/29/25 History levothyroxine 25 mcg tablet 25 mcg PO QDAY 02/25/24 05/29/25 History apixaban 5 mg tablet (Eliquis) 5 mg PO QDAY 04/14/24 05/29/25 History levothyroxine 200 mcg tablet 200 mcg PO QDAY 05/29/25 05/29/25 History Allergies Allergy/AdvReac Type Severity Reaction Status Date / Time No Known Allergies Allergy Verified 05/29/25 16:32 Exam Vital Signs Temp Pulse Resp BP Pulse Ox O2 Del Method O2 Flow Rate 98.1 F 66 16 126/72 98 Room Air 3 06/03/25 12:00 06/03/25 12:00 06/03/25 12:06/03/25 12:06/03/25 12:00 06/03/25 12:00 05/30/25 18:35 Constitutional Constitutional: no acute distress Routine Respiratory Exam Respiratory: Present no resp distress Routine Abdominal Exam Abdominal: Present soft and surgical scars (midline incision well-healed); Absent tenderness or distended Results Results: Laboratory Laboratory results: results reviewed Results: Imaging Abdominal x-ray: report reviewed and image reviewed Assessment & Plan Plan 74M with HTN, hypothyroidism, depression, afib on Eliquis, sigmoid volvulus s/p Dutch and colostomy reversal in 2023 admitted 05/29 with nausea and abdominal pain, initially with copious NG output which has since decreased. As pt is overall appearing clinically well with a benign abdomen and decreasing NG output, as well as passing gas I do not recommend surgical intervention at this point. I spoke to the pharmacist about metoclopramide as it could potentially react with sertraline but based on his GFR she recommended a dose of 5mg q8h. I explained to pt that if his NG output decreases subsequently we can either do a clamp trial or remove the NG and initiate PO diet. All questions were answered and pt is agreeable with this plan Standing reglan 5mg IV q8h per pharmacy rec Continue strict I&O OK to have ice chips (measured by nursing staff) and hard candies/cough drops OK to disconnect NG for ambulation Will follow up
[2025-06-03] MEDS: RINGERS LACTATED 1000 ML 1,000 ML 75 ML IV (14:15)
[2025-06-03] MEDS: METOCLOPRAMIDE INJ 5 MG/ML VIAL 2 ML IVP ×2 (14:15→21:05)
--- NOTE | 2025-06-03 14:23 | PC.SS ---
Update: Plan is for patient to start TPN. Dr. Perry consulting.
--- NOTE | 2025-06-03 16:05 | PD.IMPROG ---
Documentation for date of: 06/03/25 Subjective Subjective Interval history: Patient evaluated still significant secretions And aspirate of the NGT Not a candidate for GoLytely prep Case discussed with the internal medicine team Exam Vital Signs Temp Pulse Resp BP Pulse Ox O2 Del Method O2 Flow Rate 97.9 F 65 17 126/59 L 98 Room Air 3 06/03/25 16:00 06/03/25 16:00 06/03/25 16:00 06/03/25 16:00 06/03/25 16:00 06/03/25 16:00 05/30/25 18:35 Objective Labs 06/03/25 05:35 06/03/25 05:35 Labs: Laboratory Results - last 24 hr 06/03/25 05:35 WBC 5.7 RBC 2.99 L Hgb 8.9 L Hct 27.5 L MCV 92 MCH 29.8 MCHC 32.4 RDW Std Deviation 50.4 H Plt Count 196 Neut % (Auto) 65 Lymph % (Auto) 23 [place] % (Auto) 10 Eos % (Auto) 1 Baso % (Auto) 0 Neut # (Auto) 3.7 Lymph # (Auto) 1.3 [place] # (Auto) 0.6 Eos # (Auto) 0.1 Baso # (Auto) 0.0 Immature Gran # (Auto) 0.02 H Absolute Nucleated RBC 0.00 Immature Gran % 0 Nucleated RBC % 0 Sodium 141 Potassium 3.9 Chloride 110 H Carbon Dioxide 21.1 Anion Gap 10 BUN 43 H Creatinine 1.6 H Estim Creat Clear Calc 37.6 L eGFR 45 L BUN/Creatinine Ratio 27 H Glucose 75 Calculated Osmolality 291 Calcium 8.6 Phosphorus 3.1 Magnesium 2.4 Impressions Impression: Small bowel obstruction/ileus Recommend start the PPN as I am worried about the nutrition Continue NGT suction Assessment & Plan A&P Narrative # Acute GI bleed with drop in hemoglobin hematocrit and melanotic stools and rectal examination showing grossly Hemoccult positivity Plan N.p.o. Serial CBCs IV Protonix Consent obtained for fiberoptic esophagogastroduodenoscopy with possible biopsy possible therapeutic intervention under intravenous moderate sedation Will follow the patient Other medical problems include Chronic atrial fibrillation on Eliquis which is on hold Hypothyroidism Thank you very much for the opportunity to participate in the care of this patient Time Spent With Patient Time: Total time spent is greater than 50% in coordination of care (as documented) at patient's floor/unit and/or counseling patient:
[2025-06-03] MEDS: DEXTROSE 50%-WATER INJ 50 ML SYRINGE IVP (17:25)
[2025-06-03] MEDS: D5W IV (17:48)
[2025-06-03] MEDS: AMINO ACIDS IV (17:48)
[2025-06-03] MEDS: FAT EMULSIONS 20% IV 500 ML 32 ML IV (17:48)
[2025-06-03] MEDS: MULTIVITAMIN IV (17:48)
[2025-06-03] MEDS: POTASSIUM ACET IV (17:48)
[2025-06-03] MEDS: SERTRALINE HCL 25 MG TABLET 100 MG PO (20:36)
[2025-06-04] VITALS (8 sets, daily range): BP systolic 100–149; BP diastolic 51–73; PULSE 56–69; RESP 12–14; TEMP 36.1–36.7; O2SAT 96–99
[2025-06-04] MEDS: ACETAMINOPHEN 500 MG TABLET 1000 MG PO ×2 (03:17→13:44)
[2025-06-04] MEDS: RINGERS LACTATED 1000 ML 1,000 ML 75 ML IV (03:18)
[2025-06-04] MEDS: METOCLOPRAMIDE INJ 5 MG/ML VIAL 2 ML IVP ×3 (05:06→21:37)
[2025-06-04] MEDS: LEVOTHYROXINE SODIUM 100 MCG TABLET 200 MCG PO (05:08)
[2025-06-04] MEDS: LEVOTHYROXINE SODIUM 25 MCG TABLET PO (05:09)
[2025-06-04 06:19] LABS: Basophils # (Auto) 0.0 Thou/mm3 (0.0-0.2); Basophils % (Auto) 0 % (0-2.5); Eosinophils # (Auto) 0.1 Thou/mm3 (0.0-0.5); Eosinophils % (Auto) 1 % (0-10); Hematocrit 25.7 % (41.0-53.0); Immature Granulocytes Auto 0.02 Thou/mm3 (0.00-0.00); Lymphocytes # (Auto) 1.4 Thou/mm3 (1.0-4.8); Lymphocytes % (Auto) 17 % (10-50); Mean Corpuscular HGB Conc 33.1 g/dl (31.0-37.0); Mean Corpuscular Hemoglobin 30.2 pg (25.0-35.0); Mean Corpuscular Volume 92 fL (80-100); Monocytes # (Auto) 0.8 Thou/mm3 (0.0-0.8); Monocytes % (Auto) 9 % (0-12); Neutrophils # (Auto) 5.8 Thou/mm3 (1.8-7.7); Neutrophils % (Auto) 72 % (37-80); Nucleated Red Blood Cell # 0.00 Thou/mm3 (0.00-0.00); Nucleated Red Blood Cell % 0 /100 WBC (0); Platelet Count 182 Thou/mm3 (140-440); RDW Standard Deviation 49.4 fL (35.1-43.9); Red Blood Count 2.81 Miln/mm3 (4.50-5.90); White Blood Count 8.1 Thou/mm3 (3.8-10.6)
[2025-06-04 06:20] LABS: Hemoglobin 8.5 g/dL (13.5-16.0)
[2025-06-04 06:33] LABS: INR 1.1 (0.9-1.3); Partial Thromboplastin Time 29.6 Seconds (22.0-36.0); Prothrombin Time 11.9 Seconds (9.0-12.2)
[2025-06-04 06:40] LABS: Anion Gap 8 (7-16); BUN/Creatinine Ratio 30 Ratio (12-20); Blood Urea Nitrogen 36 mg/dL (9-23); Calcium 8.1 mg/dL (8.3-10.6); Carbon Dioxide 22.6 mMol/L (20.0-31.0); Cardiac Risk Estimate 2.2 RATIO (4.0-6.7); Chloride 108 mMol/L (98-107); Cholesterol 85 mg/dL (132-200); Creatinine (Component) 1.2 mg/dL (0.6-1.3); Estimated Creatinine Clearance 49.0 mL/min (>60); Glucose 97 mg/dL (74-106); HDL Cholesterol 39 mg/dL (40-60); LDL Cholesterol,Calculated 21 mg/dL (0-130); Magnesium 2.0 mg/dL (1.6-2.6); Osmolality,Calculated 285 (275-295); Phosphorous 1.8 mg/dL (2.4-5.1); Potassium 3.7 mMol/L (3.4-5.1); Sodium 139 mMol/L (136-145); Triglycerides 124 mg/dL (30-150); eGFR > 60 See Note
[2025-06-04] MEDS: PANTOPRAZOLE 40 MG TABLET PO ×2 (08:09→21:37)
[2025-06-04] MEDS: IRON SUCROSE CPLX INJ 20 MG/ML VIAL 5 ML 200 MG IVP (08:09)
--- NOTE | 2025-06-04 09:24 | PC.SS ---
rounding note: Patient may d/c home today per physician team. Patient was independent with PT evaluation no AD. Patient resides alone. No d/c needs.
--- NOTE | 2025-06-04 10:37 | ESPR_ITS ---
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 In the interim pt has undergone EGD on 05/30 with findings of bilious secretions, approx 850cc, no other findings and pt has not been a candidate for colonoscopy as he cannot tolerate prep. He has had an NG in place and initially had a lot of output, but overnight last night he had about 320cc and so far today he has had approx 100cc. Pt reports he feels much better today compared to admission, he has no pain or nausea, is passing gas but has not had a BM. He has been taking a bit of ice chips which are being recorded by nursing and he is feeling hungry Pt's most recent AXR was 06/02, he had a small bowel series that was initiated on 06/01 and as of yesterday most of the contrast was visualized in the colon PMH: HTN, hypothyroidism, depression, afib on Eliquis, sigmoid volvulus PShx: Dutch procedure followed by colostomy reversal 2023 for sigmoid volvulus Meds: includes eliquis 5mg, levothyroxine, lisinopril, amlodipine Allergies: NKDA Narrative: Per RN pt had approx 200cc NG output during day shift yesterday and 50cc overnight, his only complaint is throat pain from the NG. He denies any abdominal pain, is passing gas but has not yet had a BM and is currently on a 2- hour clamp trial for possible NG removal Exam Vital Signs Temp Pulse Resp BP Pulse Ox O2 Del Method O2 Flow Rate 97.3 F 56 L 14 129/73 99 Room Air 3 06/04/25 08:00 06/04/25 08:00 06/04/25 08:00 06/04/25 08:00 06/04/25 08:00 06/04/25 08:00 05/30/25 18:35 Constitutional Constitutional: no acute distress Routine Respiratory Exam Respiratory: Present no resp distress Routine Abdominal Exam Abdominal: Present soft; Absent tenderness or distended Results Results: Laboratory Laboratory results: results reviewed Results: Imaging Abdominal x-ray: report reviewed and image reviewed Assessment & Plan Plan 74M with HTN, hypothyroidism, depression, afib on Eliquis, sigmoid volvulus s/p Dutch and colostomy reversal in 2023 admitted 05/29 with nausea and abdominal pain, initially with copious NG output which has since decreased If pt tolerates clamp trial, agree with dc NG and would start CLD Encourage OOB/PT
[2025-06-04] MEDS: NAPH,KPH MBDB 1 PACKET (1.5 GM) PO (11:01)
--- NOTE | 2025-06-04 11:08 | PD.RESPRO ---
Documentation for date of: 06/04/25 Subjective Subjective Interval history: Patient was seen and examined at bedside. Denied any symptoms. His hemoglobin continued to downtrend from 12.5-8.5 since admission. Yesterday patient was started with Reglan and today his NG tube was clamped for a trial evaluate if he is able to tolerate oral feeds. General surgeon yesterday Dr. Lorenzana was consulted recommended no need for surgical intervention and trial of NG clamping if patient tolerate can resume oral feeding with no surgical intervention. Patient still on n.p.o. order to tolerate feeding. Has not started GDMT yet. Exam Vital Signs Temp Pulse Resp BP Pulse Ox O2 Del Method O2 Flow Rate 97.3 F 56 L 14 129/73 99 Room Air 3 06/04/25 08:00 06/04/25 08:00 06/04/25 08:00 06/04/25 08:00 06/04/25 08:00 06/04/25 08:00 05/30/25 18:35 Narrative Exam GEN: AOx3, able to speak full sentences, NG tube in place and clamped HEENT: NC/ R scabbed laceration medial aspect of R eyebrow, PERRLA, oral mucosa moist, neck supple CVS: RRR, S1-S2 present, no murmurs appreciated RESP: CTAB GI: soft,non distended, non tender, NBS MSK: able to move all 4 limbs, no lower extremity edema SKIN: warm and dry [employer]ST[employer]ER: CN II-XII and Sensation grossly intact. Objective Labs 06/04/25 05:33 06/04/25 05:33 Labs: Laboratory Results - last 24 hr 06/04/25 05:33 WBC 8.1 D RBC 2.81 L Hgb 8.5 L Hct 25.7 L MCV 92 MCH 30.2 MCHC 33.1 RDW Std Deviation 49.4 H Plt Count 182 Neut % (Auto) 72 Lymph % (Auto) 17 [place] % (Auto) 9 Eos % (Auto) 1 Baso % (Auto) 0 Neut # (Auto) 5.8 Lymph # (Auto) 1.4 [place] # (Auto) 0.8 Eos # (Auto) 0.1 Baso # (Auto) 0.0 Immature Gran # (Auto) 0.02 H Absolute Nucleated RBC 0.00 Immature Gran % 0 Nucleated RBC % 0 PT 11.9 INR 1.1 APTT 29.6 Sodium 139 Potassium 3.7 Chloride 108 H Carbon Dioxide 22.6 Anion Gap 8 BUN 36 H Creatinine 1.2 Estim Creat Clear Calc 49.0 L eGFR > 60 BUN/Creatinine Ratio 30 H Glucose 97 Calculated Osmolality 285 Calcium 8.1 L Phosphorus 1.8 L Magnesium 2.0 Triglycerides 124 Cholesterol 85 L LDL Cholesterol, Calc 21 HDL Cholesterol 39 L Cholesterol/HDL Ratio 2.2 L Quality Measures Quality Measures none Advance care planning discussed with:: patient Assessment & Plan Assessment Current Active Medications: Generic Name Dose Route Start Last Admin Trade Name Freq PRN Reason Stop Dose Admin Acetaminophen 1,000 mg 06/01/25 06:50 06/04/25 03:17 Acetaminophen 500 Mg Tablet PO 06/28/25 21:45 1,000 mg Q6HR PRN Administration Fever >99 or Pain 1-4 Lactated Ringer's 1,000 mls @ 75 mls/hr 06/01/25 07:31 06/04/25 03:18 Lactated Ringers IV 07/01/25 07:30 75 mls/hr .[id number] DARYL Administration Fat Emulsion Intravenous 500 mls @ 32 mls/hr 06/03/25 18:00 06/03/25 17:48 Intralipid 20% Iv IV 07/03/25 17:59 32 mls/hr [id number] DARYL Administration Potassium Acetate 20 meq/ 2,020 mls @ 30 mls/hr 06/03/25 18:00 06/04/25 02:28 Multivitamins/Minerals 10 ml/ IV 06/04/25 17:59 60 mls/hr Amino Acids QDAY@1800 ONE Infusion Potassium Acetate 20 meq/ 2,025 mls @ 90 mls/hr 06/04/25 18:00 Multivitamins/Minerals 10 ml/ IV 06/05/25 16:29 Potassium Phosphate 15 mmol/ QDAY@1800 ONE Amino Acids Insulin Human Regular 0 unit 06/03/25 14:46 Insulin Hum Regular 1 Unit/0.01 Ml (Per Unit) SC 07/03/25 14:45 Q6HR PRN GLYCEMIC MANAGEMENT ON PN Protocol Iron Sucrose 200 mg 06/02/25 09:00 06/04/25 08:09 Iron Sucrose Cplx Inj 20 Mg/Ml Vial 5 Ml IVP 200 mg On Hold: 06/04/25 10:05 DAILY DARYL Administration Levothyroxine Sodium 200 mcg 05/30/25 06:00 06/04/25 05:08 Levothyroxine Sodium 100 Mcg Tablet PO 06/29/25 05:59 200 mcg ACBR DARYL Administration Levothyroxine Sodium 25 mcg 05/30/25 06:00 06/04/25 05:09 Levothyroxine Sodium 25 Mcg Tablet PO 06/29/25 05:59 25 mcg ACBR DARYL Administration Metoclopramide HCl 5 mg 06/03/25 14:00 06/04/25 05:06 Metoclopramide Inj 5 Mg/Ml Vial 2 Ml IVP 07/03/25 13:59 5 mg Q8HR DARYL Administration Protocol Ondansetron HCl 4 mg 05/30/25 05:38 05/31/25 13:48 Ondansetron Inj 2 Mg/Ml Inj 2 Ml IVP 06/28/25 19:45 4 mg Q4HR PRN Administration NAUSEA OR VOMITING Protocol Pantoprazole Sodium 40 mg 06/02/25 09:00 06/04/25 08:09 Pantoprazole 40 Mg Tablet PO 07/02/25 08:59 40 mg BID DARYL Administration Sertraline HCl 100 mg 05/30/25 21:00 06/03/25 20:36 Sertraline Hcl 25 Mg Tablet PO 06/29/25 20:59 100 mg HS DARYL Administration Plan Burke Salazar 74M pmhx of HTN, atrial fibrillation on Eliquis, hypothyroidism, depression, s/p colorectal anastomosis, colostomy reversal (2023) presented to [facility] ED on 05/29 for abdominal pain, N/V, and hematochezia. Cardiology was consulted for echo results and atrial fibrillation. #HFrEF (40-45%, 05/2025) 08/28/23 Echo showed Normal LV size and function. Estimated EF 55-60% Normal RV size and function. Mild MR, Trace TR. IVC not well visualized. 05/29/25 Echo showed Normal left ventricular size. EF estimated 40-45%. Mild global Hypokinesis. Normal right ventricular size and function. Estimated RVSP 58 mmHg. Atleast moderate pulmonary HTN. Moderate dilated LA and RA. Mild MAC. Moderate Aortic valve sclerosis without stenosis. Moderate - severe TR and moderate MR. Trace AR. No pericardial effusion. Likely tachycardia induced vs chronic rhythm uncontrolled induced cardiomyopathy not on GDMT. Plan: - Will need to be on GDMT once BP tolerates and post management of GIB with reevaluation with repeat echo post 3 months of adequate GDMT - Caution with maintenance fluids given patient's hx of HFrEF, if patient develops volume overload such as new SOB, leg swelling or orthopnea, stop IVF and diurese if necessary - Telemetry for cardiac monitoring - Keep K>4 and Mg>2 at all times #Atrial fibrillation, slow ventricular rate on Eliquis Per history, also reports taking Eliquis 5 mg QD not BID. During current hospital stay, rate has been bradycardic and previous admission in 04/2024 HR 70-100. EKGs since 2022 report atrial fibrillation. Plan: - We recommended start the patient on Eliquis again as soon as there is no risk of bleeding and cleared by gastroenterology. - No indication for medical or interventional treatment, such as medication or cardioversion, at this time as rate is low normal and patient is having GIB - Follow up outpatient cardiology for further management and follow up #HTN Per history, patient is on amlodipine 5 mg QD, HCTZ 12.5 mg QD and lisinopril 40 mg QD. Plan: - Recommend to start GDMT if BP allows - CTM vitals #Syncope 2/2 acute post hemorrhagic anemia #Upper versus lower GI bleed #Hematochezia #Normocytic anemia, chronic #Hx Colorectal reanastomosis #S/P Reverse colostomy #CKD, stage III #Hyperchloremia #Hypothyroidism #Depression Chronic medical conditions nonpertinent to the following presentation Plan: - Management per primary team Thank you for the consult and allowing participation in patient's care. - Patient's plan and care discussed with my attending, Dr. Jake Lim MD Internal Medicine PGY-3 Attending Provider Attestation/Addendum I have personally seen and examined the patient separately on the above date of service and discussed the plan of care with the resident. I reviewed the resident Dr. Lim consultation progress note and agree with the resident findings and plan in the note above and have also edited the documentation to reflect my findings and plan. Cecil Joseph M.D. Interventional Cardiology
[2025-06-04 15:00] LABS: Iron 129 mcg/dL (65-175); Percent Iron Saturation 52 % (20-55); Total Iron Binding Capacity 245 mcg/dL (250-425); Unsaturated Iron Binding 116 (225-295)
--- NOTE | 2025-06-04 17:27 | PD.IMPROG ---
Documentation for date of: 06/04/25 Subjective Subjective Interval history: NGT output has decreased surgical consult appreciated Exam Vital Signs Temp Pulse Resp BP Pulse Ox O2 Del Method O2 Flow Rate 98.0 F 64 13 137/73 H 99 Room Air 3 06/04/25 15:38 06/04/25 15:38 06/04/25 15:38 06/04/25 15:38 06/04/25 15:38 06/04/25 15:38 05/30/25 18:35 Objective Labs 06/04/25 05:33 06/04/25 05:33 Labs: Laboratory Results - last 24 hr 06/04/25 05:33 WBC 8.1 D RBC 2.81 L Hgb 8.5 L Hct 25.7 L MCV 92 MCH 30.2 MCHC 33.1 RDW Std Deviation 49.4 H Plt Count 182 Neut % (Auto) 72 Lymph % (Auto) 17 [place] % (Auto) 9 Eos % (Auto) 1 Baso % (Auto) 0 Neut # (Auto) 5.8 Lymph # (Auto) 1.4 [place] # (Auto) 0.8 Eos # (Auto) 0.1 Baso # (Auto) 0.0 Immature Gran # (Auto) 0.02 H Absolute Nucleated RBC 0.00 Immature Gran % 0 Nucleated RBC % 0 PT 11.9 INR 1.1 APTT 29.6 Sodium 139 Potassium 3.7 Chloride 108 H Carbon Dioxide 22.6 Anion Gap 8 BUN 36 H Creatinine 1.2 Estim Creat Clear Calc 49.0 L eGFR > 60 BUN/Creatinine Ratio 30 H Glucose 97 Calculated Osmolality 285 Calcium 8.1 L Phosphorus 1.8 L Magnesium 2.0 Iron 129 TIBC 245 L Iron Saturation 52 Unsat Iron Binding 116 L Triglycerides 124 Cholesterol 85 L LDL Cholesterol, Calc 21 HDL Cholesterol 39 L Cholesterol/HDL Ratio 2.2 L Impressions Impression: Small bowel obstruction/ileus Clamp the NGT if he passes a trial start clear liquid diet Assessment & Plan A&P Narrative # Acute GI bleed with drop in hemoglobin hematocrit and melanotic stools and rectal examination showing grossly Hemoccult positivity Plan N.p.o. Serial CBCs IV Protonix Consent obtained for fiberoptic esophagogastroduodenoscopy with possible biopsy possible therapeutic intervention under intravenous moderate sedation Will follow the patient Other medical problems include Chronic atrial fibrillation on Eliquis which is on hold Hypothyroidism Thank you very much for the opportunity to participate in the care of this patient Time Spent With Patient Time: Total time spent is greater than 50% in coordination of care (as documented) at patient's floor/unit and/or counseling patient:
--- NOTE | 2025-06-04 18:01 | ESPR_ITS ---
<Statement entered by Abel Carney MD - 06/05/25 07:56> Patient examined and case discussed with the team including attending physician. Note reviewed, I agree with the care plan as documented. Please refer to the note below for further details. - Abel Carney MD, PGY 3 Disclaimer: The document may contain phonetic/typographic errors due to voice recognition software. These errors are purely due to imperfections in the software program. Documentation for date of: 06/04/25 Subjective Subjective Interval history: Patient was seen and examined at bedside. No acute events took place overnight. According to the nurse, patient had 50 mL of suction fluids overnight, and almost nothing in the morning before it was clamped for medication administration.? DC'd the NG tube after speaking to the surgeon.? Ordered enema, which resulted in large bowel movement midday.? Spoke with the surgeon again who recommended advancing diet to CLD. Also started the patient on Entresto half a tablet daily in the setting of stable blood pressure 149/61. Iron 129, TIBC 245 low, iron sat 52% within normal limits, unsaturated iron binding 116 low.? Stopped iron infusions. Exam Vital Signs Temp Pulse Resp BP Pulse Ox O2 Del Method O2 Flow Rate 98.0 F 64 13 137/73 H 99 Room Air 3 06/04/25 15:38 06/04/25 15:38 06/04/25 15:38 06/04/25 15:38 06/04/25 15:38 06/04/25 15:38 05/30/25 18:35 Narrative Exam GENERAL: AOx3, no acute distress, lying up in bed comfortably with NG tube in place HEENT: NC/AT, mucous membranes moist, bilateral sclera anicteric, R scabbed laceration medial aspect of R eyebrow CARDIOVASCULAR: regular rate and rhythm, S1/S2 present, no murmurs appreciated PULMONARY: clear to auscultation bilaterally, no rales/rhonchi/wheezes ABDOMINAL: soft,non-distended, and non-tender. no rebound/guarding, bowel sounds diminished, EXTREMITIES: no peripheral edema SKIN: warm and dry, no rashes NEURO: CN II-XII grossly intact, no focal deficits, alert, following commands Objective Labs 06/06/25 05:12 06/06/25 05:12 Labs: Laboratory Results - last 24 hr 06/04/25 05:33 WBC 8.1 D RBC 2.81 L Hgb 8.5 L Hct 25.7 L MCV 92 MCH 30.2 MCHC 33.1 RDW Std Deviation 49.4 H Plt Count 182 Neut % (Auto) 72 Lymph % (Auto) 17 [place] % (Auto) 9 Eos % (Auto) 1 Baso % (Auto) 0 Neut # (Auto) 5.8 Lymph # (Auto) 1.4 [place] # (Auto) 0.8 Eos # (Auto) 0.1 Baso # (Auto) 0.0 Immature Gran # (Auto) 0.02 H Absolute Nucleated RBC 0.00 Immature Gran % 0 Nucleated RBC % 0 PT 11.9 INR 1.1 APTT 29.6 Sodium 139 Potassium 3.7 Chloride 108 H Carbon Dioxide 22.6 Anion Gap 8 BUN 36 H Creatinine 1.2 Estim Creat Clear Calc 49.0 L eGFR > 60 BUN/Creatinine Ratio 30 H Glucose 97 Calculated Osmolality 285 Calcium 8.1 L Phosphorus 1.8 L Magnesium 2.0 Iron 129 TIBC 245 L Iron Saturation 52 Unsat Iron Binding 116 L Triglycerides 124 Cholesterol 85 L LDL Cholesterol, Calc 21 HDL Cholesterol 39 L Cholesterol/HDL Ratio 2.2 L Quality Measures Quality Measures none Advance care planning discussed with:: patient Assessment & Plan Assessment Current Active Medications: Generic Name Dose Route Start Last Admin Trade Name Lmq PRN Reason Stop Dose Admin Acetaminophen 1,000 mg 06/01/25 06:50 06/04/25 13:44 Acetaminophen 500 Mg Tablet PO 06/28/25 21:45 1,000 mg Q6HR PRN Administration Fever >99 or Pain 1-4 Lactated Ringer's 1,000 mls @ 75 mls/hr 06/01/25 07:31 06/04/25 16:05 Lactated Ringers IV 07/01/25 07:30 Not Given .[id number] DARYL Fat Emulsion Intravenous 500 mls @ 32 mls/hr 06/03/25 18:00 06/03/25 17:48 Intralipid 20% Iv IV 07/03/25 17:59 32 mls/hr [id number] DARYL Administration Potassium Acetate 20 meq/ 2,025 mls @ 90 mls/hr 06/04/25 18:00 Multivitamins/Minerals 10 ml/ IV 06/05/25 16:29 Potassium Phosphate 15 mmol/ QDAY@1800 ONE Amino Acids Insulin Human Regular 0 unit 06/03/25 14:46 Insulin Hum Regular 1 Unit/0.01 Ml (Per Unit) SC 07/03/25 14:45 Q6HR PRN GLYCEMIC MANAGEMENT ON PN Protocol Iron Sucrose 200 mg 06/02/25 09:00 06/04/25 08:09 Iron Sucrose Cplx Inj 20 Mg/Ml Vial 5 Ml IVP 200 mg On Hold: 06/04/25 10:05 DAILY DARYL Administration Levothyroxine Sodium 200 mcg/ 225 mcg 06/05/25 06:00 Levothyroxine Sodium 25 mcg PO 07/05/25 05:59 ACBR DARYL Metoclopramide HCl 5 mg 06/03/25 14:00 06/04/25 14:40 Metoclopramide Inj 5 Mg/Ml Vial 2 Ml IVP 07/03/25 13:59 5 mg Q8HR DARYL Administration Protocol Ondansetron HCl 4 mg 05/30/25 05:38 05/31/25 13:48 Ondansetron Inj 2 Mg/Ml Inj 2 Ml IVP 06/28/25 19:45 4 mg Q4HR PRN Administration NAUSEA OR VOMITING Protocol Pantoprazole Sodium 40 mg 06/02/25 09:00 06/04/25 08:09 Pantoprazole 40 Mg Tablet PO 07/02/25 08:59 40 mg BID DARYL Administration Sacubitril/Valsartan 0.5 tab 06/04/25 14:30 06/04/25 14:41 Sacubitril 24 Mg/Valsartan 26 Mg Tablet PO 07/04/25 14:29 0.5 tab DAILY DARYL Administration Sertraline HCl 100 mg 05/30/25 21:00 06/03/25 20:36 Sertraline Hcl 25 Mg Tablet PO 06/29/25 20:59 100 mg HS DARYL Administration Plan Burke Salazar is a 74-year-old male past medical significant for hypertension, hypothyroidism, depression, A-fib on Eliquis, s/p colorectal anastomosis, colostomy reversal (2023) who is admitted for GI bleed work-up but now complicated by SBO. #Upper versus lower GI bleed #Hematochezia #Normocytic anemia, chronic #History of colorectal reanastomosis #S/p reverse colostomy Underwent procedure on April 16, 2024 under care of general surgeon, Dr. Robb, for removal of colostomy.? Now presents with few days of hematochezia, abdominal pain, nonbloody emesis and nausea.? Initial hemoglobin of 10.5 (baseline 9.6- 10.3) and hematocrit of 32.4.? Stool occult positive. EGD (05/30): no source of UGIBD but poor visibility noted due to presence of large amount of bile and food, suspect gastric motility disorder vs SBO XR abdomen: moderate to large amounts of stool throughout the colon, central dilated small bowel loops, no free air Abdominal series 21h-delayed film showed air distended small bowel loops, but most of the contrast in the colon.? Negative for complete small bowel obstruction.? However, there was still concern over an obstructive pattern as the patient had had 4.4L of suctioned fluids through the NGT yesterday. On 06/04 patient had 50 mL of collected fluids through suction overnight, and almost nothing in the morning of. ? 06/04: Iron 129, TIBC 245 low, iron sat 52% within normal limits, unsaturated iron binding 116 low. ? [place] score: 24 that is 20 to 28% probability of safe discharge (absence of rebleeding, blood transfusion, therapeutic intervention, 28-day readmission, or ) in the patient with recent acute lower GI bleed. - GI consulted, appreciate recs - DC'd NGT, advanced diet to CLD, and stopped PPN. - Colonoscopy prior to discharge when the nausea, vomiting, and gastric dysmotility improves - Venofer 200 mg IV daily -STOPPED - LR at 75 cc/h - Protonix 40 mg IV BID - Ondansetron for nausea/vomiting - Continue to monitor H&H and transfuse if hemoglobin <7 #Syncope Likely orthostatic hypotension 2/2 hypovolemia related to GI bleed. Also consider cardiogenic cause as patient does have atrial fibrillation. Orthostatic vitals show 122/71 (lying), 104/68 (sitting), and 114/73 (standing) -> negative - Recommend rise from supine to standing slowly, compression stockings - IV fluids for volume repletion #Atrial fibrillation, slow ventricular rate #HFrEF (40-45%, 05/2025) History of atrial fibrillation on Eliquis 5 mg, currently held in light of GIB EKG showed atrial fibrillation with slow ventricular response with rate 54 and QTc 452 CHADsVAS score 2 -> 2.9% risk of stroke/TIA/systemic embolism HAS BLED score 3 -> high risk for major bleed - Cardiology consulted, appreciate recs - No indication for medical or interventional treatment, such as medication or cardioversion, at this time as rate is low normal and patient is having GIB - Follow up outpatient cardiology for further management and follow up - Held eliquis due to concern for UGIB - Continue to monitor telemetry - Keep K > 4 and Mg > 2 - Started Entresto 0.5 tab daily with BP adequately elevated #CKD, stage III #Hyperchloremia Creatinine 1.9( baseline 2). GFR37. BUN/Cr 32 BUN 53/39/27 elevated as a compound effect of GI bleed and fluid restriction. Hyperchloremia, likely secondary dehydration and fluid loss in general. - Monitor renal panel - IV fluids hydration #Hypertension, essential, stage 1 Per history, patient is on amlodipine 5 mg daily, HCTZ 12.5 mg daily, and lisinopril 40 mg daily at home - Hydralazine 10 mg IV q8h (hold if SBP <140) #Hypothyroidism - Levothyroxine 225 mcg ACBR #Hyperphosphatemia PO4- 5.5 (05/31) - Sevelamer carbonate PO 400 mg x2 #Depression - Resume home sertraline 100mg PO Hospital management: Disposition: tele for management of GIB Lines: peripheral IV Diet: CLD GI prophylaxis: pantoprazole CODE STATUS: Full code ----- This case was discussed with my attending physician, Dr. Flores, and senior resident, Dr Eriberto Clifford. Misael Metz, DO PGY I Attending Provider Attestation/Addendum I attest that I was physically present for the evaluation, physical examination, lab and imaging review of the patient with the residents. I discussed the case with the residents and agree with the findings and plans of care as documented above. Kar Wiseman MD
[2025-06-04] MEDS: POTASSIUM PHOS IV (18:15)
[2025-06-04] MEDS: POTASSIUM ACET IV (18:15)
[2025-06-04] MEDS: [UNRECOGNIZED DRUG - OTHER] IV (18:15)
[2025-06-04] MEDS: MULTIVITAMIN IV (18:15)
[2025-06-04] MEDS: SERTRALINE HCL 25 MG TABLET 100 MG PO (21:37)
[2025-06-05] VITALS: BP 126/53; PULSE 67; PULSE 68; RESP 19; TEMP 36.4; O2SAT 94
[2025-06-05 04:00] VITALS: BP 101/68; PULSE 62; PULSE 64; RESP 18; TEMP 36.1; O2SAT 96
[2025-06-05] MEDS: LEVOTHYROXINE SODIUM 225 MCG PO (05:12)
[2025-06-05] MEDS: METOCLOPRAMIDE INJ 5 MG/ML VIAL 2 ML IVP ×3 (05:12→21:29)
[2025-06-05 05:17] LABS: Basophils # (Auto) 0.0 Thou/mm3 (0.0-0.2); Basophils % (Auto) 0 % (0-2.5); Eosinophils # (Auto) 0.1 Thou/mm3 (0.0-0.5); Eosinophils % (Auto) 1 % (0-10); Hematocrit 24.3 % (41.0-53.0); Immature Granulocytes Auto 0.04 Thou/mm3 (0.00-0.00); Lymphocytes # (Auto) 1.8 Thou/mm3 (1.0-4.8); Lymphocytes % (Auto) 23 % (10-50); Mean Corpuscular HGB Conc 32.9 g/dl (31.0-37.0); Mean Corpuscular Hemoglobin 29.9 pg (25.0-35.0); Mean Corpuscular Volume 91 fL (80-100); Monocytes # (Auto) 0.8 Thou/mm3 (0.0-0.8); Monocytes % (Auto) 10 % (0-12); Neutrophils # (Auto) 5.0 Thou/mm3 (1.8-7.7); Neutrophils % (Auto) 65 % (37-80); Nucleated Red Blood Cell # 0.00 Thou/mm3 (0.00-0.00); Nucleated Red Blood Cell % 0 /100 WBC (0); Platelet Count 163 Thou/mm3 (140-440); RDW Standard Deviation 48.2 fL (35.1-43.9); Red Blood Count 2.68 Miln/mm3 (4.50-5.90); White Blood Count 7.8 Thou/mm3 (3.8-10.6)
[2025-06-05 05:28] LABS: Hemoglobin 8.0 g/dL (13.5-16.0)
[2025-06-05 05:54] LABS: Alanine Aminotransferase 9 U/L (10-49); Albumin, Serum 2.9 gm/dL (3.4-4.8); Albumin/Globulin Ratio 1.5 (1.2-2.2); Alkaline Phosphatase 97 U/L (46-116); Anion Gap 9 (7-16); Aspartate Amino Transferase 12 U/L (0-34); BUN/Creatinine Ratio 24 Ratio (12-20); Bilirubin,Total 0.7 mg/dL (0.3-1.2); Blood Urea Nitrogen 29 mg/dL (9-23); Calcium 8.3 mg/dL (8.3-10.6); Calcium (Corrected) 9.2 mg/dL (8.5-10.1); Carbon Dioxide 23.0 mMol/L (20.0-31.0); Chloride 108 mMol/L (98-107); Creatinine (Component) 1.2 mg/dL (0.6-1.3); Estimated Creatinine Clearance 49.0 mL/min (>60); Globulin 2.0 gm/dL (2.3-3.5); Glucose 88 mg/dL (74-106); Magnesium 1.8 mg/dL (1.6-2.6); Osmolality,Calculated 284 (275-295); Phosphorous 1.7 mg/dL (2.4-5.1); Potassium 4.0 mMol/L (3.4-5.1); Sodium 140 mMol/L (136-145); Total Protein 4.9 gm/dL (5.7-8.2); eGFR > 60 See Note
[2025-06-05 08:00] VITALS: BP 113/46; PULSE 63; PULSE 66; RESP 17; TEMP 36.5; O2SAT 98
[2025-06-05] MEDS: PANTOPRAZOLE 40 MG TABLET PO ×2 (08:59→21:28)
[2025-06-05] MEDS: NAPH,KPH MBDB 1 PACKET (1.5 GM) 2 PACKET PO (08:59)
--- NOTE | 2025-06-05 09:48 | EKG_ITS ---
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
--- NOTE | 2025-06-05 09:48 | PD.RESPRO ---
Documentation for date of: 06/05/25 Subjective Subjective Interval history: Patient seen and examined at bedside. Telemetry reviewed showing atrial fibrillation rate 60-70s. BP stable 100-140/50-70. Overnight BP 100-120/50-60 after receiving half tab entresto yesterday afternoon. No new complaints, denies chest pain, chest pressure, or SOB. Reports feeling much better with continued itchy throat post NG tube removal. Hgb continues to downtrend 8.5->8.0, K 4.0, BUN downtrending from 36 to 29. Cr 1.2. Continue half tab entresto as BP tolerates and can start Eliquis per GI discretion. Exam Vital Signs Temp Pulse Resp BP Pulse Ox O2 Del Method O2 Flow Rate 97.7 F 63 17 113/46 L 98 Room Air 3 06/05/25 08:00 06/05/25 08:00 06/05/25 08:00 06/05/25 08:00 06/05/25 08:00 06/05/25 08:00 05/30/25 18:35 Narrative Exam GENERAL: AOx3, no acute distress HEENT: NC/AT, mucous membranes moist, bilateral sclera anicteric, R scabbed laceration medial aspect of R eyebrow CARDIOVASCULAR: regular rate and irregular rhythm, S1/S2 present, no murmurs appreciated PULMONARY: clear to auscultation bilaterally, no rales/rhonchi/wheezes ABDOMINAL: soft, non-tender, non-distended, no rebound/guarding, bowel sounds present EXTREMITIES: no peripheral edema SKIN: warm and dry, intact, no rashes NEURO: CN II-XII grossly intact, no focal deficits, alert, following commands Objective Labs 06/05/25 04:59 06/05/25 04:59 Labs: Laboratory Results - last 24 hr 06/04/25 06/05/25 05:33 04:59 WBC 7.8 RBC 2.68 L Hgb 8.0 L Hct 24.3 L MCV 91 MCH 29.9 MCHC 32.9 RDW Std Deviation 48.2 H Plt Count 163 Neut % (Auto) 65 Lymph % (Auto) 23 [place] % (Auto) 10 Eos % (Auto) 1 Baso % (Auto) 0 Neut # (Auto) 5.0 Lymph # (Auto) 1.8 [place] # (Auto) 0.8 Eos # (Auto) 0.1 Baso # (Auto) 0.0 Immature Gran # (Auto) 0.04 H Absolute Nucleated RBC 0.00 Immature Gran % 1 H Nucleated RBC % 0 Sodium 140 Potassium 4.0 Chloride 108 H Carbon Dioxide 23.0 Anion Gap 9 BUN 29 H Creatinine 1.2 Estim Creat Clear Calc 49.0 L eGFR > 60 BUN/Creatinine Ratio 24 H Glucose 88 Calculated Osmolality 284 Calcium 8.3 Corrected Calcium 9.2 Phosphorus 1.7 L Magnesium 1.8 Iron 129 TIBC 245 L Iron Saturation 52 Unsat Iron Binding 116 L Total Bilirubin 0.7 AST 12 ALT 9 L Alkaline Phosphatase 97 Total Protein 4.9 L Albumin 2.9 L Globulin 2.0 L Albumin/Globulin Ratio 1.5 Quality Measures Quality Measures none Advance care planning discussed with:: patient Assessment & Plan Assessment Current Active Medications: Generic Name Dose Route Start Last Admin Trade Name Freq PRN Reason Stop Dose Admin Acetaminophen 1,000 mg 06/01/25 06:50 06/04/25 13:44 Acetaminophen 500 Mg Tablet PO 06/28/25 21:45 1,000 mg Q6HR PRN Administration Fever >99 or Pain 1-4 Insulin Human Regular 0 unit 06/03/25 14:46 Insulin Hum Regular 1 Unit/0.01 Ml (Per Unit) SC 07/03/25 14:45 Q6HR PRN GLYCEMIC MANAGEMENT ON PN Protocol Iron Sucrose 200 mg 06/02/25 09:00 06/04/25 08:09 Iron Sucrose Cplx Inj 20 Mg/Ml Vial 5 Ml IVP 200 mg On Hold: 06/04/25 10:05 DAILY DARYL Administration Levothyroxine Sodium 200 mcg/ 225 mcg 06/05/25 06:00 06/05/25 05:12 Levothyroxine Sodium 25 mcg PO 07/05/25 05:59 225 mcg ACBR DARYL Administration Metoclopramide HCl 5 mg 06/03/25 14:00 06/05/25 05:12 Metoclopramide Inj 5 Mg/Ml Vial 2 Ml IVP 07/03/25 13:59 5 mg Q8HR DARYL Administration Protocol Ondansetron HCl 4 mg 05/30/25 05:38 05/31/25 13:48 Ondansetron Inj 2 Mg/Ml Inj 2 Ml IVP 06/28/25 19:45 4 mg Q4HR PRN Administration NAUSEA OR VOMITING Protocol Pantoprazole Sodium 40 mg 06/02/25 09:00 06/05/25 08:59 Pantoprazole 40 Mg Tablet PO 07/02/25 08:59 40 mg BID DARYL Administration Sacubitril/Valsartan 0.5 tab 06/04/25 14:30 06/05/25 08:59 Sacubitril 24 Mg/Valsartan 26 Mg Tablet PO 07/04/25 14:29 0.5 tab DAILY DARYL Administration Sertraline HCl 100 mg 05/30/25 21:00 06/04/25 21:37 Sertraline Hcl 25 Mg Tablet PO 06/29/25 20:59 100 mg HS DARYL Administration Plan Burke Salazar 74M pmhx of HTN, atrial fibril/lation on Eliquis, hypothyroidism, depression, s/p colorectal anastomosis, colostomy reversal (2023) presented to [facility] ED on 05/29 for abdominal pain, N/V, and hematochezia. Cardiology was consulted for echo results and atrial fibrillation. #HFrEF (40-45%, 05/2025) 08/28/23 Echo showed Normal LV size and function. Estimated EF 55-60% Normal RV size and function. Mild MR, Trace TR. IVC not well visualized. 05/29/25 Echo showed Normal left ventricular size. EF estimated 40-45%. Mild global Hypokinesis. Normal right ventricular size and function. Estimated RVSP 58 mmHg. Atleast moderate pulmonary HTN. Moderate dilated LA and RA. Mild MAC. Moderate Aortic valve sclerosis without stenosis. Moderate - severe TR and moderate MR. Trace AR. No pericardial effusion. Likely tachycardia induced vs chronic rhythm uncontrolled induced cardiomyopathy not on GDMT. Plan: - Will need to be on GDMT once BP tolerates and post management of GIB with reevaluation with repeat echo post 3 months of adequate GDMT - Primary team started Entresto half tab BID 06/04 and BP stable - Caution with maintenance fluids given patient's hx of HFrEF, if patient develops volume overload such as new SOB, leg swelling or orthopnea, stop IVF and diurese if necessary - Telemetry for cardiac monitoring - Keep K>4 and Mg>2 at all times #Atrial fibrillation, slow ventricular rate on Eliquis Per history, also reports taking Eliquis 5 mg QD not BID. During current hospital stay, rate has been bradycardic and previous admission in 04/2024 HR 70-100. EKGs since 2022 report atrial fibrillation. Plan: - We recommended start the patient on Eliquis again as soon as there is no risk of bleeding and cleared by gastroenterology. - No indication for medical or interventional treatment, such as medication or cardioversion, at this time as rate is low normal and patient is having GIB - Follow up outpatient cardiology for further management and follow up #HTN Per history, patient is on amlodipine 5 mg QD, HCTZ 12.5 mg QD and lisinopril 40 mg QD. Plan: - Recommend to start GDMT if BP allows - CTM vitals #Syncope 2/2 acute post hemorrhagic anemia #Upper versus lower GI bleed #Hematochezia #Normocytic anemia, chronic #Hx Colorectal reanastomosis #S/P Reverse colostomy #CKD, stage III #Hyperchloremia #Hypothyroidism #Depression Chronic medical conditions nonpertinent to the following presentation Plan: - Management per primary team Thank you for the consult and allowing participation in patient's care. Patient's plan and care discussed with my attending, Dr. Jake Clifford, DO Internal Medicine PGY-1 Attending Provider Attestation/Addendum I have personally seen and examined the patient separately on the above date of service and discussed the plan of care with the resident. I reviewed the resident Dr. Massiel Clifford consultation progress note and agree with the resident findings and plan in the note above and have also edited the documentation to reflect my findings and plan. Cecil Joseph M.D. Interventional Cardiology
--- NOTE | 2025-06-05 10:21 | PD.SURPROG ---
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 In the interim pt has undergone EGD on 05/30 with findings of bilious secretions, approx 850cc, no other findings and pt has not been a candidate for colonoscopy as he cannot tolerate prep. He has had an NG in place and initially had a lot of output, but overnight last night he had about 320cc and so far today he has had approx 100cc. Pt reports he feels much better today compared to admission, he has no pain or nausea, is passing gas but has not had a BM. He has been taking a bit of ice chips which are being recorded by nursing and he is feeling hungry Pt's most recent AXR was 06/02, he had a small bowel series that was initiated on 06/01 and as of yesterday most of the contrast was visualized in the colon PMH: HTN, hypothyroidism, depression, afib on Eliquis, sigmoid volvulus PShx: Dutch procedure followed by colostomy reversal 2023 for sigmoid volvulus Meds: includes eliquis 5mg, levothyroxine, lisinopril, amlodipine Allergies: NKDA Narrative: NG removed yesterday and pt is tolerating CLD, feeling well with no pain, had a BM yesterday afternoon and is feeling hungry Exam Vital Signs Temp Pulse Resp BP Pulse Ox O2 Del Method O2 Flow Rate 97.7 F 63 17 113/46 L 98 Room Air 3 06/05/25 08:00 06/05/25 08:00 06/05/25 08:00 06/05/25 08:00 06/05/25 08:00 06/05/25 08:00 05/30/25 18:35 Constitutional Constitutional: no acute distress Routine Respiratory Exam Respiratory: Present no resp distress Routine Abdominal Exam Abdominal: Present soft; Absent tenderness or distended Results Results: Laboratory Laboratory results: results reviewed Assessment & Plan Plan 74M with HTN, hypothyroidism, depression, afib on Eliquis, sigmoid volvulus s/p Dutch and colostomy reversal in 2023 admitted 05/29 with nausea and abdominal pain, initially with copious NG output which resolved and NG was removed 06/04 Advance to regular diet PT/ambulation OK for dc from my standpoint after tolerating reg diet
[2025-06-05 12:00] VITALS: BP 130/67; PULSE 59; PULSE 63; RESP 18; TEMP 36.2; O2SAT 99
[2025-06-05] MEDS: APIXABAN 2.5 MG TABLET 5 MG PO (14:12)
--- NOTE | 2025-06-05 14:21 | PD.RESPRO ---
Documentation for date of: 06/05/25 Subjective Subjective Interval history: patient was on clear liquid diet, tolerated it well, no nausea or vomiting. DC'd PPN and fat emulsion. Patient had moderate BM brown-black soft and formed evening of yesterday. Spoke to Dr. Perry who said patient is not a candidate for in-hospital colonoscopy for significant risk of aspirating GoLytely prep. Recommended outpatient GI follow-up if hemoglobin unstable. VSS reviewed and stable WBC 7.8/8.1, Hgb 8.0 and stable, BUN 29, Cr 1.2 at baseline, eGFR >60, phos 1.7 (R) Exam Vital Signs Temp Pulse Resp BP Pulse Ox O2 Del Method O2 Flow Rate 97.2 F 59 L 18 130/67 99 Room Air 3 06/05/25 12:00 06/05/25 12:00 06/05/25 12:00 06/05/25 12:00 06/05/25 12:00 06/05/25 12:00 06/05/25 12:00 Narrative Exam GENERAL: AOx3, no acute distress, lying up in bed comfortably with NG tube in place HEENT: NC/AT, mucous membranes moist, bilateral sclera anicteric, R scabbed laceration medial aspect of R eyebrow CARDIOVASCULAR: regular rate and rhythm, S1/S2 present, no murmurs appreciated PULMONARY: clear to auscultation bilaterally, no rales/rhonchi/wheezes ABDOMINAL: soft,non-distended, and non-tender. no rebound/guarding, bowel sounds diminished, EXTREMITIES: no peripheral edema SKIN: warm and dry, no rashes NEURO: CN II-XII grossly intact, no focal deficits, alert, following commands Objective Labs 06/05/25 04:59 06/05/25 04:59 Labs: Laboratory Results - last 24 hr 06/04/25 06/05/25 05:33 04:59 WBC 7.8 RBC 2.68 L Hgb 8.0 L Hct 24.3 L MCV 91 MCH 29.9 MCHC 32.9 RDW Std Deviation 48.2 H Plt Count 163 Neut % (Auto) 65 Lymph % (Auto) 23 Brooks % (Auto) 10 Eos % (Auto) 1 Baso % (Auto) 0 Neut # (Auto) 5.0 Lymph # (Auto) 1.8 Brooks # (Auto) 0.8 Eos # (Auto) 0.1 Baso # (Auto) 0.0 Immature Gran # (Auto) 0.04 H Absolute Nucleated RBC 0.00 Immature Gran % 1 H Nucleated RBC % 0 Sodium 140 Potassium 4.0 Chloride 108 H Carbon Dioxide 23.0 Anion Gap 9 BUN 29 H Creatinine 1.2 Estim Creat Clear Calc 49.0 L eGFR > 60 BUN/Creatinine Ratio 24 H Glucose 88 Calculated Osmolality 284 Calcium 8.3 Corrected Calcium 9.2 Phosphorus 1.7 L Magnesium 1.8 Iron 129 TIBC 245 L Iron Saturation 52 Unsat Iron Binding 116 L Total Bilirubin 0.7 AST 12 ALT 9 L Alkaline Phosphatase 97 Total Protein 4.9 L Albumin 2.9 L Globulin 2.0 L Albumin/Globulin Ratio 1.5 Quality Measures Quality Measures none Advance care planning discussed with:: patient Assessment & Plan Assessment Current Active Medications: Generic Name Dose Route Start Last Admin Trade Name Freq PRN Reason Stop Dose Admin Acetaminophen 1,000 mg 06/01/25 06:50 06/04/25 13:44 Acetaminophen 500 Mg Tablet PO 06/28/25 21:45 1,000 mg Q6HR PRN Administration Fever >99 or Pain 1-4 Apixaban 5 mg 06/05/25 13:00 06/05/25 14:12 Apixaban 2.5 Mg Tablet PO 07/05/25 12:59 5 mg QDAY DARYL Administration Insulin Human Regular 0 unit 06/03/25 14:46 Insulin Hum Regular 1 Unit/0.01 Ml (Per Unit) SC 07/03/25 14:45 Q6HR PRN GLYCEMIC MANAGEMENT ON PN Protocol Iron Sucrose 200 mg 06/02/25 09:00 06/04/25 08:09 Iron Sucrose Cplx Inj 20 Mg/Ml Vial 5 Ml IVP 200 mg On Hold: 06/04/25 10:05 DAILY DARYL Administration Levothyroxine Sodium 200 mcg/ 225 mcg 06/05/25 06:00 06/05/25 05:12 Levothyroxine Sodium 25 mcg PO 07/05/25 05:59 225 mcg ACBR DARYL Administration Metoclopramide HCl 5 mg 06/03/25 14:00 06/05/25 14:12 Metoclopramide Inj 5 Mg/Ml Vial 2 Ml IVP 07/03/25 13:59 5 mg Q8HR DARYL Administration Protocol Ondansetron HCl 4 mg 05/30/25 05:38 05/31/25 13:48 Ondansetron Inj 2 Mg/Ml Inj 2 Ml IVP 06/28/25 19:45 4 mg Q4HR PRN Administration NAUSEA OR VOMITING Protocol Pantoprazole Sodium 40 mg 06/02/25 09:00 06/05/25 08:59 Pantoprazole 40 Mg Tablet PO 07/02/25 08:59 40 mg BID DARYL Administration Sacubitril/Valsartan 0.5 tab 06/04/25 14:30 06/05/25 08:59 Sacubitril 24 Mg/Valsartan 26 Mg Tablet PO 07/04/25 14:29 0.5 tab DAILY DARYL Administration Sertraline HCl 100 mg 05/30/25 21:00 06/04/25 21:37 Sertraline Hcl 25 Mg Tablet PO 06/29/25 20:59 100 mg HS DARYL Administration Plan Burke Salazar is a 74-year-old male past medical significant for hypertension, hypothyroidism, depression, A-fib on Eliquis, s/p colorectal anastomosis, colostomy reversal (2023) who is admitted for GI bleed work-up but now complicated by SBO. #Upper versus lower GI bleed #Hematochezia #Normocytic anemia, chronic #History of colorectal reanastomosis #S/p reverse colostomy Underwent procedure on April 16, 2024 under care of general surgeon, Dr. Robb, for removal of colostomy.? Now presents with few days of hematochezia, abdominal pain, nonbloody emesis and nausea.? Initial hemoglobin of 10.5 (baseline 9.6-10.3) and hematocrit of 32.4.? Stool occult positive. EGD (05/30): no source of UGIBD but poor visibility noted due to presence of large amount of bile and food, suspect gastric motility disorder vs SBO XR abdomen: moderate to large amounts of stool throughout the colon, central dilated small bowel loops, no free air Abdominal series 21h-delayed film showed air distended small bowel loops, but most of the contrast in the colon.? Negative for complete small bowel obstruction.? However, there was still concern over an obstructive pattern as the patient had had 4.4L of suctioned fluids through the NGT yesterday. On 06/04 patient had 50 mL of collected fluids through suction overnight, and almost nothing in the morning of. ? 06/04: Iron 129, TIBC 245 low, iron sat 52% within normal limits, unsaturated iron binding 116 low. ? [place] score: 24 that is 20 to 28% probability of safe discharge (absence of rebleeding, blood transfusion, therapeutic intervention, 28-day readmission, or ) in the patient with recent acute lower GI bleed. - GI consulted, appreciate recs - DC'd NGT, advanced diet to CLD, and stopped PPN.? -Not a candidate for inpatient colonoscopy as there is significant risk of aspiration from GoLytely prep secondary to underlying dysmotility disorder. -Resumed Eliquis as hemoglobin relatively stable - Venofer 200 mg IV daily -STOPPED - LR at 75 cc/h - Protonix 40 mg IV BID - Ondansetron for nausea/vomiting - Continue to monitor H&H and transfuse if hemoglobin <7 #Syncope Likely orthostatic hypotension 2/2 hypovolemia related to GI bleed. Also consider cardiogenic cause as patient does have atrial fibrillation. Orthostatic vitals show 122/71 (lying), 104/68 (sitting), and 114/73 (standing) -> negative - Recommend rise from supine to standing slowly, compression stockings - IV fluids for volume repletion -Put a PT order to have the patient ambulate, patient needs a walker for gait stability #Atrial fibrillation, slow ventricular rate #HFrEF (40-45%, 05/2025) History of atrial fibrillation on Eliquis 5 mg; reports taking Eliquis 5 mg QD not BID. EKG showed atrial fibrillation with slow ventricular response with rate 54 and QTc 452 CHADsVAS score 2 -> 2.9% risk of stroke/TIA/systemic embolism HAS BLED score 3 -> high risk for major bleed - Cardiology consulted, appreciate recs - No indication for medical or interventional treatment, such as medication or cardioversion, at this time as rate is low normal and patient is having GIB - Follow up outpatient cardiology for further management and follow up - Continue to monitor telemetry - Keep K > 4 and Mg > 2 - Started Entresto 0.5 tab daily with BP adequately elevated #CKD, stage III #Hyperchloremia Creatinine 1.9( baseline 2). GFR37. BUN/Cr 32 BUN 53/39/27 elevated as a compound effect of GI bleed and fluid restriction. Hyperchloremia, likely secondary dehydration and fluid loss in general. - Monitor renal panel - IV fluids hydration #Hypertension Per history, patient is on amlodipine 5 mg daily, HCTZ 12.5 mg daily, and lisinopril 40 mg daily at home - Hydralazine 10 mg IV q8h (hold if SBP <140) - Entresto 0.5tab Qday #Hypothyroidism - Levothyroxine 225 mcg ACBR #Hyperphosphatemia PO4- 5.5 (05/31) - Sevelamer carbonate PO 400 mg x2 #Depression - Resume home sertraline 100mg PO Hospital management: Disposition: tele for management of GIB Lines: peripheral IV Diet: CLD GI prophylaxis: pantoprazole CODE STATUS: Full code ----- This case was discussed with my attending physician, Dr. Wiseman, and senior resident, Dr Angelika Metz, DO PGY I
[2025-06-05 16:00] VITALS: BP 123/47; PULSE 64; PULSE 76; RESP 22; TEMP 35.9; O2SAT 99
--- NOTE | 2025-06-05 16:03 | ESDS_ITS ---
Planned Discharge Date 06/06/25 DS: Providers Provider Date of admission: 05/29/25 19:48 Primary care physician: Physician No Primary/Family Admitting Provider: Arlene Salazar MD Attending Provider on Admission: Kar Wiseman MD Consults: 05/29/25 18:32 Consult to Gastroenterology Stat Comment: Consulting Provider: Matty Perry 05/29/25 20:42 PT [Referral Physical Therapy] Routine Comment: Physician Instructions: Instructions: S/P GROUND LEVEL FALL 05/30/25 03:47 Referral Registered Dietitian Routine Comment: nausea, vomiting,poor appetite at home,lives alone 05/31/25 17:35 Consult to Cardiology Routine Comment: Consulting Provider: Cecil Joseph 06/03/25 07:48 Consult to General Surgery Routine Comment: Consulting Provider: Zuleyka Lorenzana 06/05/25 13:04 Referral Physical Therapy Routine Comment: Physician Instructions: Instructions: patient needs to be ambulated in preparation for discharge. Patient needs a walker for stable gait. Attending Provider on DC: Kar Wiseman MD Discharging Provider: Misael Metz DO DS: Diagnosis Problem List Completed Was Problem List Reviewed/Reconciled?: Yes Hospital Course Hospital Course Hospital course: Hospital course: Mr. Salazar is a 74-year-old male past medical significant for hypertension, hypothyroidism, depression, A-fib on Eliquis, s/p colorectal anastomosis, colostomy reversal (2023) presented to [facility] ED on 05/29/2025 with chief complaint of dark red stools, presyncope the day before, and an episode of fall 4 days prior.? Admitted for possible GI bleed and syncopal episode. Initial hemoglobin of 10.5 (baseline 9.6-10.3). Stool occult positive. Furthermore, EKG did reveal A-fib with slow ventricular response with HR in 50s, telemetry did reveal frequent PVCs and NSVT. Patient was started on metoprolol 12.5 mg twice daily. Eliquis held in the setting of GI bleed. Echo on 05/30 showed EF estimated 40-45%. moderate pulmonary HTN, dilated LA and RA. Moderate Aortic valve sclerosis without stenosis Moderate - severe TR and moderate MR. EGD (05/30) showed no source of UGI bleed but poor visibility noted due to presence of large amount of bile and food, suspected gastric motility disorder vs SBO. XR abdomen: moderate to large amounts of stool throughout the colon, central dilated small bowel loops, no free air. CTAP: small bowel obstruction pattern. Abdominal series with gastrograffin consistently showed SBO pattern. Initiated NGT low intermittent suction, with 1L of output on 05/31, and another 4.4L on 06/01. Surgery consulted. On 06/02 AM, KUB showed contrast in the right colon, however dilated loops of small bowel still there. Patient had 1L in NG suctioened fluids, and was not a candidate for colonoscopy for risk of aspiration from prep. General surgery recommended conservative management given decreased NG tube output and benign exam. Patient started on Reglan and PPN.? On the morning of 06/04, NGT had collected 50 mL of suction fluids only and decision was made to discontinue NGT.? Enema ordered, which resulted in large BM midday.? Diet advanced to CLD, and PPN stopped as patient tolerated oral intake well.? Started Entresto half a tablet daily in the setting of adequately elevated BP.? Stopped iron infusions as panel came back showing iron 129, TIBC 245 (L), iron sat 52% WNL and iron sat iron binding 116 (L). Patient tolerated CLD, PPN was discontinued, and diet advanced to routine.? GI recommends outpatient colonoscopy as patient carries significant risk of aspirating GoLytely at this time.? Cardiology recommended going up on Entresto before starting any other GDMT, currently patient on Entresto 0.5 tablet twice daily. At the time of discharge, patient is medically stable and deemed safe to return to his/her previous state of living.? Patient saturating 99% on room air. At the time of discharge, patient is medically stable and deemed safe to return to his/her previous state of living. Admission diagnosis: #Lower GI bleed #Hematochezia #Normocytic anemia, chronic #History of colorectal reanastomosis #S/p reverse colostomy #Syncope #Atrial fibrillation, slow ventricular rate #HFrEF (40 to 45%, 05/2025) #CKD, stage III #Hyperchloremia #Hypertension, primary #Hypothyroidism #Hyperphosphatemia #Depression Discharge instructions: * Follow-up with Primary Care Physician within 1-2 weeks of discharge. * If you continue to notice red/burgundy color stools, seek gastroenterology referral from your Primary Care Physician to complete colonoscopy as outpatient.? You should also see a timekeeper if your Primary Care Physician finds worsening anemia in your blood work. * Follow up with your dumper mold cleaner, Dr. Joseph, within one to two weeks of discharge. Address: [address] [place], [place] [address]on [facility], [place] [address]. . Call to make an appointment. * Take Eliquis 2.5 mg twice daily.? Take Entresto 24-26 twice daily. * Hold furosemide 20 mg daily as your blood pressure has been on the softer side and you have not had exam findings concerning for fluid overload until you see your Primary Care Physician as early as 06/12/2025.? * Stop taking amlodipine and lisinopril. * Continue to take levothyroxine 225 mg every morning on an empty stomach. * You may follow-up with one of our residents doctor with the [facility] at the address below. * Continue taking medications as prescribed below. * Return to Emergency Room if symptoms persist, worsen, or new symptoms develop. [facility] [address] [place] [address] Status at Discharge Cognitive/behavioral status at discharge: Stable Functional status at discharge: uses cane/walker Overall status at discharge: patient is back to baseline Time Spent with Patient Time attestation: Total time spent providing and/or coordinating discharge services: 32 min Time spent: Greater than 30 minutes Exam Vital Signs Temp Pulse Resp BP Pulse Ox O2 Del Method O2 Flow Rate 97.2 F 59 L 18 130/67 99 Room Air 3 06/05/25 12:00 06/05/25 12:00 06/05/25 12:00 06/05/25 12:00 06/05/25 12:06/05/25 12:06/05/25 12:00 Narrative Exam Narrative Exam GENERAL: AOx3, no acute distress, lying in bed comfortably HEENT: NC/AT, mucous membranes moist, bilateral sclera anicteric, R scabbed laceration medial aspect of R eyebrow CARDIOVASCULAR: Irregularly irregular rhythm, HR 57 A-fib, S1/S2 present, no murmurs appreciated PULMONARY: clear to auscultation bilaterally, no rales/rhonchi/wheezes ABDOMINAL: soft,non-distended, and non-tender. no rebound/guarding, bowel sounds diminished, but present EXTREMITIES: no peripheral edema SKIN: warm and dry, no rashes NEURO: CN II-XII grossly intact, no focal deficits, alert, following commands Discharge Plan Plan Patient Disposition: HOME (Self Care) Patient condition on transfer: Stable Care Plan Goals: * Follow-up with Primary Care Physician within 1-2 weeks of discharge. * If you continue to notice red/burgundy color stools, seek gastroenterology referral from your Primary Care Physician to complete colonoscopy as outpatient. You should also see a timekeeper if your Primary Care Physician finds worsening anemia in your blood work. * Follow up with your dumper mold cleaner, Dr. Joseph, within one to two weeks of discharge. Address: [address] [place] [address], [place] [address]. Phone:? . Call to make an appointment. * Take Eliquis 2.5 mg twice daily. Take Entresto 24-26 twice daily. * Hold furosemide 20 mg daily as your blood pressure has been on the softer side and you have not had exam findings concerning for fluid overload until you see your Primary Care Physician as early as 06/12/2025. * Stop taking amlodipine and lisinopril. * Continue to take levothyroxine 225 mg every morning on an empty stomach. * You may follow-up with one of our residents doctor with the [facility] at the address below. * Continue taking medications as prescribed below. * Return to Emergency Room if symptoms persist, worsen, or new symptoms develop. [facility] [address] [place] [address] Prescriptions/Referrals Prescriptions/Med Rec: New Eliquis 2.5 mg tablet 2.5 mg PO BID 30 Days Qty: 60 0RF sacubitril-valsartan [Entresto] 24-26 mg tablet 1 tab PO BID 30 Days Qty: 60 0RF Continued levothyroxine 25 mcg tablet 25 mcg PO QDAY Patient Comments: TAKE 1 TABLET BY MOUTH ONCE DAILY IN THE MORNING ON AN EMPTY STOMACH levothyroxine 200 mcg tablet 200 mcg PO QDAY sertraline 100 mg tablet 100 mg PO HS Patient Comments: TAKE 1 TABLET BY MOUTH ONCE DAILY FOR 90 DAYS omeprazole 40 mg capsule,delayed release(DR/EC) 40 mg PO QDAY Patient Comments: TAKE 1 CAPSULE BY MOUTH ONCE DAILY Held furosemide 20 mg tablet 20 mg PO QDAY Hold Instructions: Resume on 06/12/25. HOLD until follow up with Cardiology Discontinued hydrochlorothiazide 12.5 mg capsule 12.5 mg PO QDAY Patient Comments: TAKE 1 CAPSULE BY MOUTH ONCE DAILY IN THE MORNING amlodipine 10 mg tablet 5 mg PO QDAY Patient Comments: TAKE 1 TABLET BY MOUTH ONCE DAILY lisinopril 40 mg tablet 40 mg PO QDAY Patient Comments: TAKE 1 TABLET BY MOUTH ONCE DAILY FOR 90 DAYS Eliquis 5 mg tablet 5 mg PO QDAY Patient Comments: TAKE 1 TABLET BY MOUTH TWICE DAILY hydrocodone-acetaminophen 10-325 mg tablet 1 tab PO Q8H MDD 30mg PRN (Reason: pain) Qty: 15 0RF Referrals: Cecil Joseph MD [Physician, Cardiology] Matty Perry MD [Physician, Gastroenterology] No Primary/Family,Physician [Primary Care Provider] Patient/Caregiver Discharge Instructions Discharge Activity: activity as tolerated Education Materials: Bleeding Gastrointestinal, Anemia, AFL/Afib, Exercise for a Healthier Heart Print Language: Icelandic Stand Alone Forms: Jaz[employer]ne Award Info., Patient Portal Info Letter Quality Discharge Quality Measures VTE prophylaxis Attestestation Attestation I attest that I was physically present for the evaluation, physical examination, lab and imaging review of the patient with the residents. I discussed the case with the residents and agree with the findings and plans of care as documented above. Kar Wiseman MD
--- NOTE | 2025-06-05 16:40 | PC.NURSE ---
Notified patient of discharge orders, pt states he has no ride. [place] about [place] and it is too late for his ride to come down and get him. He says his ride cannot drive in the dark. Notified MD of situation.
--- NOTE | 2025-06-05 16:52 | PC.NURSE ---
No answer from child protective services social worker
--- NOTE | 2025-06-05 17:48 | PC.NURSE ---
Received communication from [employer] mixer, transportation agencies were contacted and no one was willing to take the patient that far. Discharge will be held until tomorrow. Dr. Carney made aware
--- NOTE | 2025-06-05 19:00 | ESPR_ITS ---
Documentation for date of: 06/05/25 Subjective Subjective Interval history: Patient evaluated We reviewed the entire chart Initial presentation the hospital was with melanotic stools I have been able to commence the patient that he should have a colonoscopy prior to discharge because follow-up is going to be more difficult for him And he agreed Clear liquid diet GoLytely prep Colonoscopy tomorrow Exam Vital Signs Temp Pulse Resp BP Pulse Ox O2 Del Method O2 Flow Rate 96.7 F L 76 22 H 123/47 L 99 Room Air 3 06/05/25 16:00 06/05/25 16:00 06/05/25 16:00 06/05/25 16:00 06/05/25 16:00 06/05/25 16:00 06/05/25 12:00 Objective Labs 06/05/25 04:59 06/05/25 04:59 Labs: Laboratory Results - last 24 hr 06/05/25 04:59 WBC 7.8 RBC 2.68 L Hgb 8.0 L Hct 24.3 L MCV 91 MCH 29.9 MCHC 32.9 RDW Std Deviation 48.2 H Plt Count 163 Neut % (Auto) 65 Lymph % (Auto) 23 [place] % (Auto) 10 Eos % (Auto) 1 Baso % (Auto) 0 Neut # (Auto) 5.0 Lymph # (Auto) 1.8 [place] # (Auto) 0.8 Eos # (Auto) 0.1 Baso # (Auto) 0.0 Immature Gran # (Auto) 0.04 H Absolute Nucleated RBC 0.00 Immature Gran % 1 H Nucleated RBC % 0 Sodium 140 Potassium 4.0 Chloride 108 H Carbon Dioxide 23.0 Anion Gap 9 BUN 29 H Creatinine 1.2 Estim Creat Clear Calc 49.0 L eGFR > 60 BUN/Creatinine Ratio 24 H Glucose 88 Calculated Osmolality 284 Calcium 8.3 Corrected Calcium 9.2 Phosphorus 1.7 L Magnesium 1.8 Total Bilirubin 0.7 AST 12 ALT 9 L Alkaline Phosphatase 97 Total Protein 4.9 L Albumin 2.9 L Globulin 2.0 L Albumin/Globulin Ratio 1.5 Impressions Impression: Occult GI bleeding colonic pseudoobstruction Consent obtained for fiberoptic colonoscopy with possible biopsy possible therapeutic intervention under intravenous moderate sedation GoLytely prep with a clear liquid diet Assessment & Plan A&P Narrative # Acute GI bleed with drop in hemoglobin hematocrit and melanotic stools and rectal examination showing grossly Hemoccult positivity Plan N.p.o. Serial CBCs IV Protonix Consent obtained for fiberoptic esophagogastroduodenoscopy with possible biopsy possible therapeutic intervention under intravenous moderate sedation Will follow the patient Other medical problems include Chronic atrial fibrillation on Eliquis which is on hold Hypothyroidism Thank you very much for the opportunity to participate in the care of this patient Time Spent With Patient Time: Total time spent is greater than 50% in coordination of care (as documented) at patient's floor/unit and/or counseling patient:
--- NOTE | 2025-06-05 19:15 | ESPR_ITS ---
<Statement entered by Abel Carney MD - 06/06/25 16:23> Patient examined and case discussed with the team including attending physician. Note reviewed, I agree with the care plan as documented. Please refer to the note below for further details. - Abel Carney MD, PGY 3 Disclaimer: The document may contain phonetic/typographic errors due to voice recognition software. These errors are purely due to imperfections in the software program. Documentation for date of: 06/05/25 Subjective Subjective Interval history: Patient was seen and examined at bedside. No acute events took place overnight. Patient on clear liquid diet and tolerating well without nausea or vomiting. DC'd PPN and fatty margins. BM moderate dark brown-black soft formed yesterday evening. Patient's diet was advanced to routine and tolerating well. Patient declined colonoscopy with GI, patient was done plan for discharge but could not get transportation. Exam Vital Signs Temp Pulse Resp BP Pulse Ox O2 Del Method O2 Flow Rate 96.7 F L 76 22 H 123/47 L 99 Room Air 3 06/05/25 16:00 06/05/25 16:00 06/05/25 16:06/05/25 16:06/05/25 16:06/05/25 16:06/05/25 12:00 Narrative Exam GENERAL: AOx3, no acute distress, lying up in bed comfortably with NG tube in place HEENT: NC/AT, mucous membranes moist, bilateral sclera anicteric, R scabbed laceration medial aspect of R eyebrow CARDIOVASCULAR: Irregularly irregular rhythm, HR 57 A-fib, S1/S2 present, no murmurs appreciated PULMONARY: clear to auscultation bilaterally, no rales/rhonchi/wheezes ABDOMINAL: soft,non-distended, and non-tender. no rebound/guarding, bowel sounds diminished, but present EXTREMITIES: no peripheral edema SKIN: warm and dry, no rashes NEURO: CN II-XII grossly intact, no focal deficits, alert, following commands Objective Labs 06/06/25 05:12 06/06/25 05:12 Labs: Laboratory Results - last 24 hr 06/05/25 04:59 WBC 7.8 RBC 2.68 L Hgb 8.0 L Hct 24.3 L MCV 91 MCH 29.9 MCHC 32.9 RDW Std Deviation 48.2 H Plt Count 163 Neut % (Auto) 65 Lymph % (Auto) 23 [place] % (Auto) 10 Eos % (Auto) 1 Baso % (Auto) 0 Neut # (Auto) 5.0 Lymph # (Auto) 1.8 [place] # (Auto) 0.8 Eos # (Auto) 0.1 Baso # (Auto) 0.0 Immature Gran # (Auto) 0.04 H Absolute Nucleated RBC 0.00 Immature Gran % 1 H Nucleated RBC % 0 Sodium 140 Potassium 4.0 Chloride 108 H Carbon Dioxide 23.0 Anion Gap 9 BUN 29 H Creatinine 1.2 Estim Creat Clear Calc 49.0 L eGFR > 60 BUN/Creatinine Ratio 24 H Glucose 88 Calculated Osmolality 284 Calcium 8.3 Corrected Calcium 9.2 Phosphorus 1.7 L Magnesium 1.8 Total Bilirubin 0.7 AST 12 ALT 9 L Alkaline Phosphatase 97 Total Protein 4.9 L Albumin 2.9 L Globulin 2.0 L Albumin/Globulin Ratio 1.5 Quality Measures Quality Measures VTE prophylaxis Advance care planning discussed with:: patient Assessment & Plan Assessment Current Active Medications: Generic Name Dose Route Start Last Admin Trade Name Freq PRN Reason Stop Dose Admin Acetaminophen 1,000 mg 06/01/25 06:50 06/04/25 13:44 Acetaminophen 500 Mg Tablet PO 06/28/25 21:45 1,000 mg Q6HR PRN Administration Fever >99 or Pain 1-4 Apixaban 2.5 mg 06/06/25 09:00 Apixaban 2.5 Mg Tablet PO 07/06/25 08:59 QDAY DARYL Insulin Human Regular 0 unit 06/03/25 14:46 Insulin Hum Regular 1 Unit/0.01 Ml (Per Unit) SC 07/03/25 14:45 Q6HR PRN GLYCEMIC MANAGEMENT ON PN Protocol Iron Sucrose 200 mg 06/02/25 09:00 06/04/25 08:09 Iron Sucrose Cplx Inj 20 Mg/Ml Vial 5 Ml IVP 200 mg On Hold: 06/04/25 10:05 DAILY DARYL Administration Levothyroxine Sodium 200 mcg/ 225 mcg 06/05/25 06:00 06/05/25 05:12 Levothyroxine Sodium 25 mcg PO 07/05/25 05:59 225 mcg ACBR DARYL Administration Metoclopramide HCl 5 mg 06/03/25 14:00 06/05/25 14:12 Metoclopramide Inj 5 Mg/Ml Vial 2 Ml IVP 07/03/25 13:59 5 mg Q8HR DARYL Administration Protocol Ondansetron HCl 4 mg 05/30/25 05:38 05/31/25 13:48 Ondansetron Inj 2 Mg/Ml Inj 2 Ml IVP 06/28/25 19:45 4 mg Q4HR PRN Administration NAUSEA OR VOMITING Protocol Pantoprazole Sodium 40 mg 06/02/25 09:00 06/05/25 08:59 Pantoprazole 40 Mg Tablet PO 07/02/25 08:59 40 mg BID DARYL Administration Sacubitril/Valsartan 0.5 tab 06/05/25 21:00 Sacubitril 24 Mg/Valsartan 26 Mg Tablet PO 07/05/25 20:59 BID DARYL Sertraline HCl 100 mg 05/30/25 21:00 06/04/25 21:37 Sertraline Hcl 25 Mg Tablet PO 06/29/25 20:59 100 mg HS DARYL Administration Plan Burke Salazar is a 74-year-old male past medical significant for hypertension, hypothyroidism, depression, A-fib on Eliquis, s/p colorectal anastomosis, colostomy reversal (2023) who is admitted for GI bleed work-up but now complicated by SBO. #Upper versus lower GI bleed #Hematochezia #Normocytic anemia, chronic #History of colorectal reanastomosis #S/p reverse colostomy Underwent procedure on April 16, 2024 under care of general surgeon, Dr. Robb, for removal of colostomy.? Now presents with few days of hematochezia, abdominal pain, nonbloody emesis and nausea.? Initial hemoglobin of 10.5 (baseline 9.6- 10.3) and hematocrit of 32.4.? Stool occult positive. EGD (05/30): no source of UGIBD but poor visibility noted due to presence of large amount of bile and food, suspect gastric motility disorder vs SBO XR abdomen: moderate to large amounts of stool throughout the colon, central dilated small bowel loops, no free air Abdominal series 21h-delayed film showed air distended small bowel loops, but most of the contrast in the colon.? Negative for complete small bowel obstruction.? However, there was still concern over an obstructive pattern as the patient had had 4.4L of suctioned fluids through the NGT yesterday. On 06/04 patient had 50 mL of collected fluids through suction overnight, and almost nothing in the morning of. ? 06/04: Iron 129, TIBC 245 low, iron sat 52% within normal limits, unsaturated iron binding 116 low. ? [employer] score: 24 that is 20 to 28% probability of safe discharge (absence of rebleeding, blood transfusion, therapeutic intervention, 28-day readmission, or ) in the patient with recent acute lower GI bleed. - GI consulted, appreciate recs - DC'd NGT, advanced diet to CLD, and stopped PPN.? -Not a candidate for inpatient colonoscopy as there is significant risk of aspiration from GoLytely prep secondary to underlying dysmotility disorder. -Resumed Eliquis as hemoglobin relatively stable - Venofer 200 mg IV daily -STOPPED - LR at 75 cc/h - Protonix 40 mg IV BID - Ondansetron for nausea/vomiting - Continue to monitor H&H and transfuse if hemoglobin <7 #Syncope Likely orthostatic hypotension 2/2 hypovolemia related to GI bleed. Also consider cardiogenic cause as patient does have atrial fibrillation. Orthostatic vitals show 122/71 (lying), 104/68 (sitting), and 114/73 (standing) -> negative - Recommend rise from supine to standing slowly, compression stockings - IV fluids for volume repletion -Put a PT order to have the patient ambulate, patient needs a walker for gait stability #Atrial fibrillation, slow ventricular rate #HFrEF (40-45%, 05/2025) History of atrial fibrillation on Eliquis 5 mg; reports taking Eliquis 5 mg QD not BID. EKG showed atrial fibrillation with slow ventricular response with rate 54 and QTc 452 CHADsVAS score 2 -> 2.9% risk of stroke/TIA/systemic embolism HAS BLED score 3 -> high risk for major bleed - Cardiology consulted, appreciate recs - No indication for medical or interventional treatment, such as medication or cardioversion, at this time as rate is low normal and patient is having GIB - Follow up outpatient cardiology for further management and follow up - Held eliquis due to concern for UGIB - Continue to monitor telemetry - Keep K > 4 and Mg > 2 - Started Entresto 0.5 tab daily with BP adequately elevat #CKD, stage III #Hyperchloremia Creatinine 1.9( baseline 2). GFR37. BUN/Cr 32 BUN 53/39/27 elevated as a compound effect of GI bleed and fluid restriction. Hyperchloremia, likely secondary dehydration and fluid loss in general. - Monitor renal panel - IV fluids hydration #Hypertension Per history, patient is on amlodipine 5 mg daily, HCTZ 12.5 mg daily, and lisinopril 40 mg daily at home - Hydralazine 10 mg IV q8h (hold if SBP <140) - Entresto 0.5tab Qday #Hypothyroidism - Levothyroxine 225 mcg ACBR #Hyperphosphatemia PO4- 5.5 (05/31) - Sevelamer carbonate PO 400 mg x2 #Depression - Resume home sertraline 100mg PO Hospital management: Disposition: tele for management of GIB Lines: peripheral IV Diet: CLD GI prophylaxis: pantoprazole CODE STATUS: Full code This case was discussed with my attending physician, Dr. Flores, and senior resident, Dr Eriberto Clifford. Misael Metz, PGY I Attending Provider Attestation/Addendum I attest that I was physically present for the evaluation, physical examination, lab and imaging review of the patient with the residents. I discussed the case with the residents and agree with the findings and plans of care as documented above. Kar Wiseman MD
[2025-06-05 20:00] VITALS: BP 98/56; PULSE 60; PULSE 70; RESP 20; TEMP 36.7; O2SAT 96
--- NOTE | 2025-06-05 20:00 | PC.NURSE ---
PATIENT ALERT AND ORIENTED X3,REFUSED COLONOSCOPY and wants to go home in am around 8am-9am.Dr. Perry made aware through and with new order to cancel colonoscopy procedure.
[2025-06-05] MEDS: SERTRALINE HCL 25 MG TABLET 100 MG PO (21:28)
[2025-06-06] VITALS (9 sets, daily range): BP systolic 90–105; BP diastolic 48–62; PULSE 53–66; RESP 16–18; TEMP 36.3–37.2; O2SAT 97–100; BMI 22.0
[2025-06-06] MEDS: METOCLOPRAMIDE INJ 5 MG/ML VIAL 2 ML IVP ×3 (05:14→22:05)
[2025-06-06] MEDS: LEVOTHYROXINE SODIUM 225 MCG PO (05:15)
[2025-06-06 05:47] LABS: Basophils # (Auto) 0.0 Thou/mm3 (0.0-0.2); Basophils % (Auto) 0 % (0-2.5); Eosinophils # (Auto) 0.2 Thou/mm3 (0.0-0.5); Eosinophils % (Auto) 3 % (0-10); Hematocrit 23.3 % (41.0-53.0); Immature Granulocytes Auto 0.05 Thou/mm3 (0.00-0.00); Lymphocytes # (Auto) 1.9 Thou/mm3 (1.0-4.8); Lymphocytes % (Auto) 28 % (10-50); Mean Corpuscular HGB Conc 33.0 g/dl (31.0-37.0); Mean Corpuscular Hemoglobin 30.0 pg (25.0-35.0); Mean Corpuscular Volume 91 fL (80-100); Monocytes # (Auto) 0.6 Thou/mm3 (0.0-0.8); Monocytes % (Auto) 9 % (0-12); Neutrophils # (Auto) 4.1 Thou/mm3 (1.8-7.7); Neutrophils % (Auto) 60 % (37-80); Nucleated Red Blood Cell # 0.00 Thou/mm3 (0.00-0.00); Nucleated Red Blood Cell % 0 /100 WBC (0); Platelet Count 173 Thou/mm3 (140-440); RDW Standard Deviation 48.2 fL (35.1-43.9); Red Blood Count 2.57 Miln/mm3 (4.50-5.90); White Blood Count 6.9 Thou/mm3 (3.8-10.6)
[2025-06-06 06:02] LABS: Hemoglobin 7.7 g/dL (13.5-16.0)
[2025-06-06 06:37] LABS: Alanine Aminotransferase 10 U/L (10-49); Albumin, Serum 2.7 gm/dL (3.4-4.8); Albumin/Globulin Ratio 1.4 (1.2-2.2); Alkaline Phosphatase 119 U/L (46-116); Anion Gap 9 (7-16); Aspartate Amino Transferase 15 U/L (0-34); BUN/Creatinine Ratio 21 Ratio (12-20); Bilirubin,Total 0.4 mg/dL (0.3-1.2); Blood Urea Nitrogen 27 mg/dL (9-23); Calcium 7.9 mg/dL (8.3-10.6); Calcium (Corrected) 8.9 mg/dL (8.5-10.1); Carbon Dioxide 23.3 mMol/L (20.0-31.0); Chloride 108 mMol/L (98-107); Creatinine (Component) 1.3 mg/dL (0.6-1.3); Estimated Creatinine Clearance 46.5 mL/min (>60); Globulin 2.0 gm/dL (2.3-3.5); Glucose 92 mg/dL (74-106); Magnesium 1.9 mg/dL (1.6-2.6); Osmolality,Calculated 284 (275-295); Phosphorous 1.7 mg/dL (2.4-5.1); Potassium 3.8 mMol/L (3.4-5.1); Sodium 140 mMol/L (136-145); Total Protein 4.7 gm/dL (5.7-8.2); eGFR 58 See Note
[2025-06-06] MEDS: APIXABAN 2.5 MG TABLET PO (08:23)
[2025-06-06] MEDS: PANTOPRAZOLE 40 MG TABLET PO ×2 (08:23→20:20)
[2025-06-06] MEDS: NAPH,KPH MBDB 1 PACKET (1.5 GM) 2 PACKET PO (08:27)
--- NOTE | 2025-06-06 08:54 | ESPR_ITS ---
Documentation for date of: 06/06/25 Subjective Subjective Interval history: Patient evaluated Dropping hemoglobin hematocrit to 7.7 and 23.3 Exam Vital Signs Temp Pulse Resp BP Pulse Ox O2 Del Method O2 Flow Rate 98.9 F 63 16 99/62 99 Room Air 3 06/06/25 04:00 06/06/25 04:00 06/06/25 04:00 06/06/25 04:00 06/06/25 04:00 06/06/25 04:00 06/05/25 12:00 Objective Labs 06/06/25 05:12 06/06/25 05:12 Labs: Laboratory Results - last 24 hr 06/06/25 05:12 WBC 6.9 RBC 2.57 L Hgb 7.7 L Hct 23.3 L MCV 91 MCH 30.0 MCHC 33.0 RDW Std Deviation 48.2 H Plt Count 173 Neut % (Auto) 60 Lymph % (Auto) 28 [place] % (Auto) 9 Eos % (Auto) 3 Baso % (Auto) 0 Neut # (Auto) 4.1 Lymph # (Auto) 1.9 [place] # (Auto) 0.6 Eos # (Auto) 0.2 Baso # (Auto) 0.0 Immature Gran # (Auto) 0.05 H Absolute Nucleated RBC 0.00 Immature Gran % 1 H Nucleated RBC % 0 Sodium 140 Potassium 3.8 Chloride 108 H Carbon Dioxide 23.3 Anion Gap 9 BUN 27 H Creatinine 1.3 Estim Creat Clear Calc 46.5 L eGFR 58 L BUN/Creatinine Ratio 21 H Glucose 92 Calculated Osmolality 284 Calcium 7.9 L Corrected Calcium 8.9 Phosphorus 1.7 L Magnesium 1.9 Total Bilirubin 0.4 AST 15 ALT 10 Alkaline Phosphatase 119 H D Total Protein 4.7 L Albumin 2.7 L Globulin 2.0 L Albumin/Globulin Ratio 1.4 Impressions Impression: Dropping hemoglobin hematocrit patient will benefit from colonoscopy He wants to go home Case discussed with the internal medicine team I wanted him to start GoLytely last night but he refused to do so after he initially agreed Assessment & Plan A&P Narrative # Acute GI bleed with drop in hemoglobin hematocrit and melanotic stools and rectal examination showing grossly Hemoccult positivity Plan N.p.o. Serial CBCs IV Protonix Consent obtained for fiberoptic esophagogastroduodenoscopy with possible biopsy possible therapeutic intervention under intravenous moderate sedation Will follow the patient Other medical problems include Chronic atrial fibrillation on Eliquis which is on hold Hypothyroidism Thank you very much for the opportunity to participate in the care of this patient Time Spent With Patient Time: Total time spent is greater than 50% in coordination of care (as documented) at patient's floor/unit and/or counseling patient:
[2025-06-06] MEDS: NA SU/NAHCO3/KC/PEG (Golytely) 4,000 ML BTL 4000 ML PO (14:28)
--- NOTE | 2025-06-06 14:48 | ESPR_ITS ---
Documentation for date of: 06/06/25 Subjective Subjective Interval history: Patient was seen and examined at bedside this AM. No acute events overnight. Patient was scheduled to be discharged yesterday as he did not wish to have colonoscopy but could not leave due to transportation. However, overnight his hemoglobin downtrended 8.9 -> 8.0 -> 7.7. Eliquis 2.5 mg BID was recently started after clearance from GI, which could've worsened the GIB. It was decided that patient should have colonoscopy in house prior to DC as high risk for worsening anemia. Patient initially refused to do colonoscopy. On repeat counseling, and obtaining further GI recs, he eventually agreed. At this time patient is on GoLytely to have colonoscopy to rule out lower GI bleed. Exam Vital Signs Temp Pulse Resp BP Pulse Ox O2 Del Method O2 Flow Rate 98.7 F 59 L 18 96/56 L 100 Room Air 3 06/06/25 12:00 06/06/25 12:00 06/06/25 12:00 06/06/25 12:06/06/25 12:00 06/06/25 12:06/05/25 12:00 Narrative Exam GENERAL: AOx3, no acute distress, lying up in bed comfortably with NG tube in place HEENT: NC/AT, mucous membranes moist, bilateral sclera anicteric, R scabbed laceration medial aspect of R eyebrow CARDIOVASCULAR: Irregularly irregular rhythm, HR 57, S1/S2 present, no murmurs appreciated PULMONARY: clear to auscultation bilaterally, no rales/rhonchi/wheezes ABDOMINAL: soft,non-distended, and non-tender. no rebound/guarding, bowel sounds + EXTREMITIES: no peripheral edema SKIN: warm and dry, no rashes NEURO: CN II-XII grossly intact, no focal deficits, alert, following commands Objective Labs 06/06/25 05:12 06/06/25 05:12 Labs: Laboratory Results - last 24 hr 06/06/25 05:12 WBC 6.9 RBC 2.57 L Hgb 7.7 L Hct 23.3 L MCV 91 MCH 30.0 MCHC 33.0 RDW Std Deviation 48.2 H Plt Count 173 Neut % (Auto) 60 Lymph % (Auto) 28 [place] % (Auto) 9 Eos % (Auto) 3 Baso % (Auto) 0 Neut # (Auto) 4.1 Lymph # (Auto) 1.9 [place] # (Auto) 0.6 Eos # (Auto) 0.2 Baso # (Auto) 0.0 Immature Gran # (Auto) 0.05 H Absolute Nucleated RBC 0.00 Immature Gran % 1 H Nucleated RBC % 0 Sodium 140 Potassium 3.8 Chloride 108 H Carbon Dioxide 23.3 Anion Gap 9 BUN 27 H Creatinine 1.3 Estim Creat Clear Calc 46.5 L eGFR 58 L BUN/Creatinine Ratio 21 H Glucose 92 Calculated Osmolality 284 Calcium 7.9 L Corrected Calcium 8.9 Phosphorus 1.7 L Magnesium 1.9 Total Bilirubin 0.4 AST 15 ALT 10 Alkaline Phosphatase 119 H D Total Protein 4.7 L Albumin 2.7 L Globulin 2.0 L Albumin/Globulin Ratio 1.4 Quality Measures Quality Measures VTE prophylaxis Advance care planning discussed with:: patient Assessment & Plan Assessment Current Active Medications: Generic Name Dose Route Start Last Admin Trade Name Freq PRN Reason Stop Dose Admin Acetaminophen 1,000 mg 06/01/25 06:50 06/04/25 13:44 Acetaminophen 500 Mg Tablet PO 06/28/25 21:45 1,000 mg Q6HR PRN Administration Fever >99 or Pain 1-4 Apixaban 2.5 mg 06/06/25 09:00 06/06/25 08:23 Apixaban 2.5 Mg Tablet PO 07/06/25 08:59 2.5 mg QDAY DARYL Administration Insulin Human Regular 0 unit 06/03/25 14:46 Insulin Hum Regular 1 Unit/0.01 Ml (Per Unit) SC 07/03/25 14:45 Q6HR PRN GLYCEMIC MANAGEMENT ON PN Protocol Iron Sucrose 200 mg 06/02/25 09:00 06/04/25 08:09 Iron Sucrose Cplx Inj 20 Mg/Ml Vial 5 Ml IVP 200 mg On Hold: 06/04/25 10:05 DAILY DARYL Administration Levothyroxine Sodium 200 mcg/ 225 mcg 06/05/25 06:00 06/06/25 05:15 Levothyroxine Sodium 25 mcg PO 07/05/25 05:59 225 mcg ACBR DARYL Administration Metoclopramide HCl 5 mg 06/03/25 14:00 06/06/25 13:30 Metoclopramide Inj 5 Mg/Ml Vial 2 Ml IVP 07/03/25 13:59 5 mg Q8HR DARYL Administration Protocol Ondansetron HCl 4 mg 05/30/25 05:38 05/31/25 13:48 Ondansetron Inj 2 Mg/Ml Inj 2 Ml IVP 06/28/25 19:45 4 mg Q4HR PRN Administration NAUSEA OR VOMITING Protocol Pantoprazole Sodium 40 mg 06/02/25 09:00 06/06/25 08:23 Pantoprazole 40 Mg Tablet PO 07/02/25 08:59 40 mg BID DARYL Administration Sacubitril/Valsartan 0.5 tab 06/05/25 21:00 06/06/25 08:23 Sacubitril 24 Mg/Valsartan 26 Mg Tablet PO 07/05/25 20:59 0.5 tab BID DARYL Administration Sertraline HCl 100 mg 05/30/25 21:00 06/05/25 21:28 Sertraline Hcl 25 Mg Tablet PO 06/29/25 20:59 100 mg HS DARYL Administration Plan Burke Salazar is a 74-year-old male past medical significant for hypertension, hypothyroidism, depression, A-fib on Eliquis, s/p colorectal anastomosis, colostomy reversal (2023) who is admitted for GI bleed work-up but now complicated by SBO. Acute Hematochezia Normocytic anemia, chronic secondary to Lower GI bleed, pending colonoscopy History of colorectal reanastomosis S/p reverse colostomy Underwent procedure on April 16, 2024 under care of general surgeon, Dr. Robb, for removal of colostomy.? Now presents with few days of hematochezia, abdominal pain, nonbloody emesis and nausea.? Initial hemoglobin of 10.5 (baseline 9.6- 10.3) and hematocrit of 32.4.? Stool occult positive. EGD (05/30): no source of UGIBD but poor visibility noted due to presence of large amount of bile and food, suspect gastric motility disorder vs SBO XR abdomen: moderate to large amounts of stool throughout the colon, central dilated small bowel loops, no free air Abdominal series 21h-delayed film showed air distended small bowel loops, but most of the contrast in the colon.? Negative for complete small bowel obstruction.? However, there was still concern over an obstructive pattern as the patient had had 4.4L of suctioned fluids through the NGT yesterday. On 06/04 patient had 50 mL of collected fluids through suction overnight, and almost nothing in the morning of. Iron Panel: 129, TIBC 245 low, iron sat 52% within normal limits, unsaturated iron binding 116 low. [place] score: 24 that is 20 to 28% probability of safe discharge (absence of rebleeding, blood transfusion, therapeutic intervention, 28-day readmission, or ) in the patient with recent acute lower GI bleed. Plan: - GI consulted, appreciate recs - DC'd NGT, advanced diet to CLD, and stopped PPN.? - Initially not a candidate for inpatient colonoscopy but started on GoLytely prep now and will be rescheduled - HOLD Eliquis until colonoscopy completed - Protonix 40 mg IV BID - PRN Ondansetron for nausea/vomiting - Repeat H&H at 8PM on 06/06 -> transfuse if hemoglobin <7. Type and cross match completed Syncope 2/2 Orthostatic ++ Atrial fibrillation w/ SVR Primary Hypertension Hx of HFrEF (40-45%, 05/2025) - Likely orthostatic hypotension 2/2 hypovolemia related to GI bleed. Also consider cardiogenic cause as patient does have atrial fibrillation. - Orthostatic vitals show 122/71 (lying), 104/68 (sitting), and 114/73 (standing) -> negative - Home meds: amlodipine 5 mg daily, HCTZ 12.5 mg daily, and lisinopril 40 mg daily + Eliquis 5 mg; reports taking Eliquis 5 mg QD not BID. - EKG : atrial fibrillation with slow ventricular response with rate 54 and QTc 452 - CHADsVAS score 2 -> 2.9% risk of stroke/TIA/systemic embolism - HAS BLED score 3 -> high risk for major bleed Plan: - Recommend rise from supine to standing slowly, compression stockings - Cardiology consulted, appreciate recs - HOLD eliquis due to concern for GIB - PRN Hydralazine 10 mg IV q8h (hold if SBP <140) - Entresto 0.5tab Qday - Continue to monitor telemetry - Keep K > 4 and Mg > 2 CKD, stage III Hyperphosphatemia - resolved - RFT: Creatinine 1.9( baseline 2). GFR37. BUN/Cr 32 - Phos - 5.5 (05/31) -> wnl - BUN 53/39/27 elevated as a compound effect of GI bleed and fluid restriction. Plan: - Hyperchloremia, likely secondary dehydration and fluid loss in general. - Sevelamer carbonate PO 400 mg x2 - Renally dose medications like anticoagulants and antibiotics - Avoid nephrotoxic agents - Monitor renal panel Hypothyroidism - Levothyroxine 225 mcg ACBR Depression - Resume home sertraline 100mg PO Hospital management: Disposition: tele for management of GIB Lines: peripheral IV Diet: CLD GI prophylaxis: pantoprazole BID CODE STATUS: Full code Plan of care discussed with attending Dr Wiseman, - Abel Carney M.D. PGY3 Disclaimer: Minor errors in radiological defense officer may be present as this note was dictated using voice recognition software. Attending Provider Attestation/Addendum I attest that I was physically present for the evaluation, physical examination, lab and imaging review of the patient with the residents. I discussed the case with the residents and agree with the findings and plans of care as documented above. Patient seen and examined at bedside this morning. Appears comfortable and denies any new complaints. Denies any abdominal pain, nausea and vomiting. Noted to have drop in hemoglobin from 8.0-7.7, patient's hemoglobin has been consistently dropping from 10.5 on presentation. Discussed with GI, stated patient had declined colonoscopy yesterday, but with ongoing drop in hemoglobin, had another discussion with the patient about risk and benefit, patient agrees to pursue colonoscopy. Started patient on GoLytely preparation, patient is planned for colonoscopy tomorrow. She has also been recently started on Eliquis for his A-fib, we will hold Eliquis with his decreasing hemoglobin. Continues to be on Protonix, clear liquid diet. Vital signs are stable except for soft blood pressure. Kar Wiseman MD
--- NOTE | 2025-06-06 15:07 | ESPR_ITS ---
<Statement entered by Ava Gonzalez MD - 06/07/25 18:35> I personally evaluated examined this patient covering for Dr. Teodoro Gonzalez patient's clinically stable history of atrial fibrillation drop in hemoglobin Eliquis restarted but patient scheduled for colonoscopy anticoagulation be held again. Clinically stable not have any chest pain shortness breath agree with the treatment plan recommendation as documented by PGY 3 Dr. Loly Barillas will continue to monitor the patient closely for any cardiac issues Documentation for date of: 06/06/25 Subjective Subjective Interval history: Patient was seen and examined at bedside. He denied any new symptoms. His hemoglobin downtrending to 7.7. Eliquis has been started by the primary team after it was cleared by the GI specialist Dr. Perry is on low-dose 2.5 mg twice daily. Patient initially refused to do colonoscopy however eventually agreed. At this time patient is on GoLytely to have colonoscopy to rule out lower GI bleed. His blood pressure in the low normal 91/50 will continue, pulse rate of 65, potassium 3.8 serum creatinine 1.3 magnesium of 1.7. Exam Vital Signs Temp Pulse Resp BP Pulse Ox O2 Del Method O2 Flow Rate 98.7 F 59 L 18 96/56 L 100 Room Air 3 06/06/25 12:00 06/06/25 12:00 06/06/25 12:00 06/06/25 12:00 06/06/25 12:00 06/06/25 12:00 06/05/25 12:00 Narrative Exam GENERAL: AOx3, no acute distress HEENT: NC/AT, mucous membranes moist, bilateral sclera anicteric, R scabbed laceration medial aspect of R eyebrow CARDIOVASCULAR: regular rate and irregular rhythm, S1/S2 present, no murmurs appreciated PULMONARY: clear to auscultation bilaterally, no rales/rhonchi/wheezes ABDOMINAL: soft, non-tender, non-distended, no rebound/guarding, bowel sounds present EXTREMITIES: no peripheral edema SKIN: warm and dry, intact, no rashes NEURO: CN II-XII grossly intact, no focal deficits, alert, following commands Objective Labs 06/06/25 18:00 06/06/25 05:12 Labs: Laboratory Results - last 24 hr 06/06/25 05:12 WBC 6.9 RBC 2.57 L Hgb 7.7 L Hct 23.3 L MCV 91 MCH 30.0 MCHC 33.0 RDW Std Deviation 48.2 H Plt Count 173 Neut % (Auto) 60 Lymph % (Auto) 28 [place] % (Auto) 9 Eos % (Auto) 3 Baso % (Auto) 0 Neut # (Auto) 4.1 Lymph # (Auto) 1.9 [place] # (Auto) 0.6 Eos # (Auto) 0.2 Baso # (Auto) 0.0 Immature Gran # (Auto) 0.05 H Absolute Nucleated RBC 0.00 Immature Gran % 1 H Nucleated RBC % 0 Sodium 140 Potassium 3.8 Chloride 108 H Carbon Dioxide 23.3 Anion Gap 9 BUN 27 H Creatinine 1.3 Estim Creat Clear Calc 46.5 L eGFR 58 L BUN/Creatinine Ratio 21 H Glucose 92 Calculated Osmolality 284 Calcium 7.9 L Corrected Calcium 8.9 Phosphorus 1.7 L Magnesium 1.9 Total Bilirubin 0.4 AST 15 ALT 10 Alkaline Phosphatase 119 H D Total Protein 4.7 L Albumin 2.7 L Globulin 2.0 L Albumin/Globulin Ratio 1.4 Quality Measures Quality Measures VTE prophylaxis Advance care planning discussed with:: patient Assessment & Plan Assessment Current Active Medications: Generic Name Dose Route Start Last Admin Trade Name Freq PRN Reason Stop Dose Admin Acetaminophen 1,000 mg 06/01/25 06:50 06/04/25 13:44 Acetaminophen 500 Mg Tablet PO 06/28/25 21:45 1,000 mg Q6HR PRN Administration Fever >99 or Pain 1-4 Apixaban 2.5 mg 06/06/25 09:00 06/06/25 08:23 Apixaban 2.5 Mg Tablet PO 07/06/25 08:59 2.5 mg QDAY DARYL Administration Insulin Human Regular 0 unit 06/03/25 14:46 Insulin Hum Regular 1 Unit/0.01 Ml (Per Unit) SC 07/03/25 14:45 Q6HR PRN GLYCEMIC MANAGEMENT ON PN Protocol Iron Sucrose 200 mg 06/02/25 09:00 06/04/25 08:09 Iron Sucrose Cplx Inj 20 Mg/Ml Vial 5 Ml IVP 200 mg On Hold: 06/04/25 10:05 DAILY DARYL Administration Levothyroxine Sodium 200 mcg/ 225 mcg 06/05/25 06:00 06/06/25 05:15 Levothyroxine Sodium 25 mcg PO 10/28/25 05:59 225 mcg ACBR DARYL Administration Metoclopramide HCl 5 mg 06/03/25 14:00 06/06/25 13:30 Metoclopramide Inj 5 Mg/Ml Vial 2 Ml IVP 07/03/25 13:59 5 mg Q8HR DARLY Administration Protocol Ondansetron HCl 4 mg 05/30/25 05:38 05/31/25 13:48 Ondansetron Inj 2 Mg/Ml Inj 2 Ml IVP 06/28/25 19:45 4 mg Q4HR PRN Administration NAUSEA OR VOMITING Protocol Pantoprazole Sodium 40 mg 06/02/25 09:00 06/06/25 08:23 Pantoprazole 40 Mg Tablet PO 07/02/25 08:59 40 mg BID DARYL Administration Sacubitril/Valsartan 0.5 tab 06/05/25 21:00 06/06/25 08:23 Sacubitril 24 Mg/Valsartan 26 Mg Tablet PO 07/05/25 20:59 0.5 tab BID DARYL Administration Sertraline HCl 100 mg 05/30/25 21:00 06/05/25 21:28 Sertraline Hcl 25 Mg Tablet PO 06/29/25 20:59 100 mg HS DARYL Administration Plan Burke Salazar 74M pmhx of HTN, atrial fibril/lation on Eliquis, hypothyroidism, depression, s/p colorectal anastomosis, colostomy reversal (2023) presented to [facility] ED on 05/29 for abdominal pain, N/V, and hematochezia. Cardiology was consulted for echo results and atrial fibrillation. #HFrEF (40-45%, 05/2025) 08/28/23 Echo showed Normal LV size and function. Estimated EF 55-60% Normal RV size and function. Mild MR, Trace TR. IVC not well visualized. 05/29/25 Echo showed Normal left ventricular size. EF estimated 40-45%. Mild global Hypokinesis. Normal right ventricular size and function. Estimated RVSP 58 mmHg. Atleast moderate pulmonary HTN. Moderate dilated LA and RA. Mild MAC. Moderate Aortic valve sclerosis without stenosis. Moderate - severe TR and moderate MR. Trace AR. No pericardial effusion. Likely tachycardia induced vs chronic rhythm uncontrolled induced cardiomyopathy not on GDMT. Plan: - Will need to be on GDMT once BP tolerates and post management of GIB with reevaluation with repeat echo post 3 months of adequate GDMT - Primary team started Entresto half tab BID 06/04 and BP stable - Caution with maintenance fluids given patient's hx of HFrEF, if patient develops volume overload such as new SOB, leg swelling or orthopnea, stop IVF and diurese if necessary - Telemetry for cardiac monitoring - Keep K>4 and Mg>2 at all times #Atrial fibrillation, slow ventricular rate on Eliquis Per history, also reports taking Eliquis 5 mg QD not BID. During current hospital stay, rate has been bradycardic and previous admission in 04/2024 HR 70- 100. EKGs since 2022 report atrial fibrillation. Plan: - We recommended holding Eliquis downtrending of hemoglobin to 7.7 for now, considered start the patient on Eliquis again as soon as there is no risk of bleeding and cleared by gastroenterology. - No indication for medical or interventional treatment, such as medication or cardioversion, at this time as rate is low normal and patient is having GIB - Follow up outpatient cardiology for further management and follow up #HTN Per history, patient is on amlodipine 5 mg QD, HCTZ 12.5 mg QD and lisinopril 40 mg QD. Plan: - Recommend to start GDMT if BP allows - CTM vitals #Syncope 2/2 acute post hemorrhagic anemia #Upper versus lower GI bleed #Hematochezia #Normocytic anemia, chronic #Hx Colorectal reanastomosis #S/P Reverse colostomy #CKD, stage III #Hyperchloremia #Hypothyroidism #Depression Chronic medical conditions nonpertinent to the following presentation Plan: - Management per primary team Thank you for the consult and allowing participation in patient's care. - Patient's plan and care discussed with my attending, Dr. Carlos Lim MD Internal Medicine PGY-3
[2025-06-06 18:13] LABS: Hematocrit 24.1 % (41.0-53.0)
[2025-06-06 18:19] LABS: Hemoglobin 7.8 g/dL (13.5-16.0)
[2025-06-06] MEDS: SERTRALINE HCL 25 MG TABLET 100 MG PO (20:20)
[2025-06-07] VITALS (9 sets, daily range): BP systolic 90–122; BP diastolic 48–71; PULSE 53–82; RESP 14–22; TEMP 36.1–36.7; O2SAT 94–99; BMI 21.9
[2025-06-07] MEDS: LEVOTHYROXINE SODIUM 225 MCG PO (05:21)
[2025-06-07] MEDS: METOCLOPRAMIDE INJ 5 MG/ML VIAL 2 ML IVP ×3 (05:22→21:09)
[2025-06-07 05:33] LABS: Basophils # (Auto) 0.0 Thou/mm3 (0.0-0.2); Basophils % (Auto) 0 % (0-2.5); Eosinophils # (Auto) 0.2 Thou/mm3 (0.0-0.5); Eosinophils % (Auto) 4 % (0-10); Hematocrit 24.2 % (41.0-53.0); Immature Granulocytes Auto 0.03 Thou/mm3 (0.00-0.00); Lymphocytes # (Auto) 2.3 Thou/mm3 (1.0-4.8); Lymphocytes % (Auto) 33 % (10-50); Mean Corpuscular HGB Conc 33.9 g/dl (31.0-37.0); Mean Corpuscular Hemoglobin 30.8 pg (25.0-35.0); Mean Corpuscular Volume 91 fL (80-100); Monocytes # (Auto) 0.5 Thou/mm3 (0.0-0.8); Monocytes % (Auto) 7 % (0-12); Neutrophils # (Auto) 3.9 Thou/mm3 (1.8-7.7); Neutrophils % (Auto) 56 % (37-80); Nucleated Red Blood Cell # 0.00 Thou/mm3 (0.00-0.00); Nucleated Red Blood Cell % 0 /100 WBC (0); Platelet Count 195 Thou/mm3 (140-440); RDW Standard Deviation 49.0 fL (35.1-43.9); Red Blood Count 2.66 Miln/mm3 (4.50-5.90); White Blood Count 6.9 Thou/mm3 (3.8-10.6)
[2025-06-07 06:11] LABS: Alanine Aminotransferase 14 U/L (10-49); Albumin, Serum 2.9 gm/dL (3.4-4.8); Albumin/Globulin Ratio 1.5 (1.2-2.2); Alkaline Phosphatase 132 U/L (46-116); Anion Gap 8 (7-16); Aspartate Amino Transferase 17 U/L (0-34); BUN/Creatinine Ratio 22 Ratio (12-20); Bilirubin,Total 0.4 mg/dL (0.3-1.2); Blood Urea Nitrogen 29 mg/dL (9-23); Calcium 8.0 mg/dL (8.3-10.6); Calcium (Corrected) 8.9 mg/dL (8.5-10.1); Carbon Dioxide 22.8 mMol/L (20.0-31.0); Chloride 108 mMol/L (98-107); Creatinine (Component) 1.3 mg/dL (0.6-1.3); Estimated Creatinine Clearance 46.5 mL/min (>60); Globulin 2.0 gm/dL (2.3-3.5); Glucose 87 mg/dL (74-106); Magnesium 1.9 mg/dL (1.6-2.6); Osmolality,Calculated 282 (275-295); Phosphorous 1.7 mg/dL (2.4-5.1); Potassium 4.0 mMol/L (3.4-5.1); Sodium 139 mMol/L (136-145); Total Protein 4.9 gm/dL (5.7-8.2); eGFR 58 See Note
[2025-06-07 06:19] LABS: Hemoglobin 8.2 g/dL (13.5-16.0)
[2025-06-07] MEDS: PANTOPRAZOLE 40 MG TABLET PO ×2 (08:31→20:23)
[2025-06-07] MEDS: POT PHOS 15 mMol in NS 250 ML 15 MMOL/250 ML BAG 62.5 MMOL IV (09:22)
--- NOTE | 2025-06-07 13:15 | ESPR_ITS ---
<Statement entered by Roger Wei MD - 06/07/25 15:18> No acute overnight events. Seen and examined at bedside and patient preparing for colonoscopy with GoLytely. He denies any abdominal pain, nausea/vomiting, or any signs of blood in his bowel movements. Vital signs stable, hemoglobin also stable, and CHEM panel shows improved kidney function since admission, and hyper hypophosphatemia that was repleted. Will await for further GI recommendations after colonoscopy as mentioned. ----- Note reviewed and agree with care plan as documented. Please refer to the note below for further details. Plan discussed with attending physician Dr. Magdalena Wei MD PGY-2 Internal Medicine Documentation for date of: 06/07/25 Subjective Subjective Interval history: Patient was seen and examined at bedside this AM. No acute events overnight. Patient is drinking GoLytely in preparation for colonoscopy. He denies fever, lightheadedness, N/V, abdominal pain, hematochezia. Admits to dark stool. Exam Vital Signs Temp Pulse Resp BP Pulse Ox O2 Del Method O2 Flow Rate 97.0 F 62 14 105/60 98 Room Air 3 06/07/25 08:00 06/07/25 12:37 06/07/25 08:00 06/07/25 08:00 06/07/25 08:00 06/07/25 08:00 06/05/25 12:00 Narrative Exam GENERAL: AOx3, no acute distress, lying up in bed comfortably with NG tube in place HEENT: NC/AT, mucous membranes moist, bilateral sclera anicteric, R scabbed laceration medial aspect of R eyebrow CARDIOVASCULAR: Irregularly irregular rhythm, HR 57, S1/S2 present, no murmurs appreciated PULMONARY: clear to auscultation bilaterally, no rales/rhonchi/wheezes ABDOMINAL: soft,non-distended, and non-tender. no rebound/guarding, bowel sounds + EXTREMITIES: no peripheral edema SKIN: warm and dry, no rashes NEURO: CN II-XII grossly intact, no focal deficits, alert, following commands Objective Labs 06/08/25 04:35 06/08/25 04:35 Labs: Laboratory Results - last 24 hr 06/06/25 06/06/25 06/07/25 12:18 18:00 04:45 WBC 6.9 RBC 2.66 L Hgb 7.8 L 8.2 L Hct 24.1 L 24.2 L MCV 91 MCH 30.8 MCHC 33.9 RDW Std Deviation 49.0 H Plt Count 195 Neut % (Auto) 56 Lymph % (Auto) 33 [place] % (Auto) 7 Eos % (Auto) 4 Baso % (Auto) 0 Neut # (Auto) 3.9 Lymph # (Auto) 2.3 [place] # (Auto) 0.5 Eos # (Auto) 0.2 Baso # (Auto) 0.0 Immature Gran # (Auto) 0.03 H Absolute Nucleated RBC 0.00 Immature Gran % 0 Nucleated RBC % 0 Sodium 139 Potassium 4.0 Chloride 108 H Carbon Dioxide 22.8 Anion Gap 8 BUN 29 H Creatinine 1.3 Estim Creat Clear Calc 46.5 L eGFR 58 L BUN/Creatinine Ratio 22 H Glucose 87 Calculated Osmolality 282 Calcium 8.0 L Corrected Calcium 8.9 Phosphorus 1.7 L Magnesium 1.9 Total Bilirubin 0.4 AST 17 ALT 14 Alkaline Phosphatase 132 H Total Protein 4.9 L Albumin 2.9 L Globulin 2.0 L Albumin/Globulin Ratio 1.5 Blood Type O Positive Antibody Screen NEGATIVE Crossmatch See Detail Blood Bank Wristband ID Yes Quality Measures Quality Measures VTE prophylaxis Advance care planning discussed with:: patient Assessment & Plan Assessment Current Active Medications: Generic Name Dose Route Start Last Admin Trade Name Freq PRN Reason Stop Dose Admin Acetaminophen 1,000 mg 06/01/25 06:50 06/04/25 13:44 Acetaminophen 500 Mg Tablet PO 06/28/25 21:45 1,000 mg Q6HR PRN Administration Fever >99 or Pain 1-4 Apixaban 2.5 mg 06/06/25 09:00 06/06/25 08:23 Apixaban 2.5 Mg Tablet PO 07/06/25 08:59 2.5 mg On Hold: 06/06/25 16:20 QDAY DARYL Administration Insulin Human Regular 0 unit 06/03/25 14:46 Insulin Hum Regular 1 Unit/0.01 Ml (Per Unit) SC 07/03/25 14:45 Q6HR PRN GLYCEMIC MANAGEMENT ON PN Protocol Levothyroxine Sodium 200 mcg/ 225 mcg 06/05/25 06:00 06/07/25 05:21 Levothyroxine Sodium 25 mcg PO 07/05/25 05:59 225 mcg ACBR DARYL Administration Metoclopramide HCl 5 mg 06/03/25 14:00 06/07/25 05:22 Metoclopramide Inj 5 Mg/Ml Vial 2 Ml IVP 07/03/25 13:59 5 mg Q8HR DARYL Administration Protocol Ondansetron HCl 4 mg 05/30/25 05:38 05/31/25 13:48 Ondansetron Inj 2 Mg/Ml Inj 2 Ml IVP 06/28/25 19:45 4 mg Q4HR PRN Administration NAUSEA OR VOMITING Protocol Pantoprazole Sodium 40 mg 06/02/25 09:00 06/07/25 08:31 Pantoprazole 40 Mg Tablet PO 07/02/25 08:59 40 mg BID DARYL Administration Sacubitril/Valsartan 0.5 tab 06/05/25 21:00 06/07/25 08:31 Sacubitril 24 Mg/Valsartan 26 Mg Tablet PO 07/05/25 20:59 0.5 tab BID DARYL Administration Sertraline HCl 100 mg 05/30/25 21:00 06/06/25 20:20 Sertraline Hcl 25 Mg Tablet PO 06/29/25 20:59 100 mg HS DARYL Administration Plan Hospital Course: Mr. Salazar is a 74-year-old male past medical significant for hypertension, hypothyroidism, depression, A-fib on Eliquis, s/p colorectal anastomosis, colostomy reversal (2023) presented to [facility] [place] [facility] on 05/29/2025 with chief complaint of dark red stools, presyncope the day before, and an episode of fall 4 days prior.? Admitted for possible GI bleed and syncopal episode. Initial hemoglobin of 10.5 (baseline 9.6-10.3). Stool occult positive. Furthermore, EKG did reveal A-fib with slow ventricular response with HR in 50s, telemetry did reveal frequent PVCs and NSVT. Patient was started on metoprolol 12.5 mg twice daily. Eliquis held in the setting of GI bleed. Echo on 05/30 showed EF estimated 40-45%. moderate pulmonary HTN, dilated LA and RA. Moderate Aortic valve sclerosis without stenosis Moderate - severe TR and moderate MR. EGD (05/30) showed no source of UGI bleed but poor visibility noted due to presence of large amount of bile and food, suspected gastric motility disorder vs SBO. XR abdomen: moderate to large amounts of stool throughout the colon, central dilated small bowel loops, no free air. CTAP: small bowel obstruction pattern. Abdominal series with gastrograffin consistently showed SBO pattern. Initiated NGT low intermittent suction, with 1L of output on 05/31, and another 4.4L on 06/01. Surgery consulted. On 06/02 AM, KUB showed contrast in the right colon, however dilated loops of small bowel still there. Patient had 1L in NG suctioened fluids, and was not a candidate for colonoscopy for risk of aspiration from prep. General surgery recommended conservative management given decreased NG tube output and benign exam. Patient started on Reglan and PPN.? On the morning of 06/04, NGT had collected 50 mL of suction fluids only and decision was made to discontinue NGT.? Enema ordered, which resulted in large BM midday.? Diet advanced to CLD, and PPN stopped as patient tolerated oral intake well.? Started Entresto half a tablet daily in the setting of adequately elevated BP.? Stopped iron infusions as panel came back showing iron 129, TIBC 245 (L), iron sat 52% WNL and iron sat iron binding 116 (L). Patient tolerated CLD, PPN was discontinued, and diet advanced to routine.? GI recommended outpatient colonoscopy as patient carried significant risk of aspirating GoLytely then. However, his hemoglobin downtrended 8.9 -> 8.0 -> 7.7. Eliquis 2.5 mg BID was recently started after clearance from GI, which could've worsened the GIB. It was decided that patient should have colonoscopy in house prior to DC as high risk for worsening anemia. Patient initially refused to do colonoscopy. On repeat counseling, and obtaining further GI recs, he eventually agreed. Acute Hematochezia Normocytic anemia, chronic secondary to Lower GI bleed, pending colonoscopy History of colorectal reanastomosis S/p reverse colostomy Underwent procedure on April 16, 2024 under care of general surgeon, Dr. Robb, for removal of colostomy.? Now presents with few days of hematochezia, abdominal pain, nonbloody emesis and nausea.? Initial hemoglobin of 10.5 (baseline 9.6- 10.3) and hematocrit of 32.4.? Stool occult positive. EGD (05/30): no source of UGIBD but poor visibility noted due to presence of large amount of bile and food, suspect gastric motility disorder vs SBO XR abdomen: moderate to large amounts of stool throughout the colon, central dilated small bowel loops, no free air Abdominal series 21h-delayed film showed air distended small bowel loops, but most of the contrast in the colon.? Negative for complete small bowel obstruction.? However, there was still concern over an obstructive pattern as the patient had had 4.4L of suctioned fluids through the NGT yesterday. Iron Panel: 129, TIBC 245 low, iron sat 52% within normal limits, unsaturated iron binding 116 low. [place] score: 24 that is 20 to 28% probability of safe discharge (absence of rebleeding, blood transfusion, therapeutic intervention, 28-day readmission, or ) in the patient with recent acute lower GI bleed. Plan: - GI consulted, appreciate recs - Initially not a candidate for inpatient colonoscopy but started on GoLytely prep now and will be rescheduled - pending colonoscopy - HOLD Eliquis until colonoscopy completed - Protonix 40 mg IV BID - PRN Ondansetron for nausea/vomiting - Transfuse if hemoglobin <7. Type and cross match completed Syncope 2/2 Orthostatic ++ Atrial fibrillation w/ SVR Primary Hypertension Hx of HFrEF (40-45%, 05/2025) - Likely orthostatic hypotension 2/2 hypovolemia related to GI bleed. Also consider cardiogenic cause as patient does have atrial fibrillation. - Orthostatic vitals show 122/71 (lying), 104/68 (sitting), and 114/73 (standing) -> negative - Home meds: amlodipine 5 mg daily, HCTZ 12.5 mg daily, and lisinopril 40 mg daily + Eliquis 5 mg; reports taking Eliquis 5 mg QD not BID. - EKG : atrial fibrillation with slow ventricular response with rate 54 and QTc 452 - CHADsVAS score 2 -> 2.9% risk of stroke/TIA/systemic embolism - HAS BLED score 3 -> high risk for major bleed Plan: - Recommend rise from supine to standing slowly, compression stockings - Cardiology consulted, appreciate recs - HOLD eliquis 2.5mg bid due to concern for GIB - PRN Hydralazine 10 mg IV q8h (hold if SBP <140) - Entresto 0.5tab bid - Continue to monitor telemetry - Keep K > 4 and Mg > 2 - No indication for medical or interventional treatment, such as medication or cardioversion, at this time as rate is low normal and patient is having GIB - Follow up outpatient cardiology for further management and follow up CKD, stage III Hyperphosphatemia - resolved - RFT: Creatinine 1.3, GFR 58. BUN/Cr 22 - Phos - 5.5 (05/31) -> wnl - BUN previously elevated (52) as a compound effect of GI bleed and fluid restriction. Plan: - Hyperchloremia, likely secondary dehydration and fluid loss in general. - Sevelamer carbonate PO 400 mg x2 - Renally dose medications like anticoagulants and antibiotics - Avoid nephrotoxic agents - Monitor renal panel Hypothyroidism - Levothyroxine 225 mcg ACBR Depression - Resume home sertraline 100mg PO Hospital management: Disposition: tele for management of GIB Lines: peripheral IV Diet: CLD GI prophylaxis: pantoprazole BID CODE STATUS: Full code This case was discussed with my attending physician, Dr. Nichols, and senior resident, Dr Eriberto Clifford. Misael Metz, DO PGY I Disclaimer: Minor errors in environmental marketing representative may be present as this note was dictated using voice recognition software. Attending Provider Attestation/Addendum I have examined the patient, reviewed labs and imaging findings, discussed the case with the resident(s), and reviewed entered orders. I agree with the plan of care as outlined in this note, with these additional summaries/recommendations: Patient seen at bedside. No acute overnight events. He is seen drinking GoLytely and will go for colonoscopy with gastroenterology once stool is clear. Continue to hold all chemical anticoagulation. Hemoglobin 8.2 today. Hypophosphatemia present and replacement given. We will reinstitute goal- directed medical therapy for HFrEF as tolerated. Please see residents note for additional details and management. Dr. Magdalena MD
--- NOTE | 2025-06-07 18:47 | ESPR_ITS ---
<Statement entered by Ava Gonzalez MD - 06/08/25 08:30> I personally examined the patient and evaluated with resident physician PGY 3 Dr. Loly Berry patient appears to be doing well preparing for colonoscopy today anticoagulation been held because of GI bleeding recommend resuming it once cleared by mri specialist. Agree with the treatment plan recommendation as documented Documentation for date of: 06/07/25 Subjective Subjective Interval history: Patient was seen and examined at bedside. Patient still not clear for colonoscopy. Patient has been in sinus rhythm with heart rate of 73, blood pressure of 99/53. Patient was started on Entresto half tablet as part of his GDMT. Exam Vital Signs Temp Pulse Resp BP Pulse Ox O2 Del Method O2 Flow Rate 97.2 F 53 L 22 H 122/71 95 Room Air 3 06/07/25 12:00 06/07/25 16:37 06/07/25 12:00 06/07/25 12:00 06/07/25 12:00 06/07/25 12:00 06/05/25 12:00 Narrative Exam GENERAL: AOx3, no acute distress HEENT: NC/AT, mucous membranes moist, bilateral sclera anicteric, R scabbed laceration medial aspect of R eyebrow CARDIOVASCULAR: regular rate and irregular rhythm, S1/S2 present, no murmurs appreciated PULMONARY: clear to auscultation bilaterally, no rales/rhonchi/wheezes ABDOMINAL: soft, non-tender, non-distended, no rebound/guarding, bowel sounds present EXTREMITIES: no peripheral edema SKIN: warm and dry, intact, no rashes NEURO: CN II-XII grossly intact, no focal deficits, alert, following commands Objective Labs 06/07/25 04:45 06/07/25 04:45 Labs: Laboratory Results - last 24 hr 06/07/25 04:45 WBC 6.9 RBC 2.66 L Hgb 8.2 L Hct 24.2 L MCV 91 MCH 30.8 MCHC 33.9 RDW Std Deviation 49.0 H Plt Count 195 Neut % (Auto) 56 Lymph % (Auto) 33 [place] % (Auto) 7 Eos % (Auto) 4 Baso % (Auto) 0 Neut # (Auto) 3.9 Lymph # (Auto) 2.3 [place] # (Auto) 0.5 Eos # (Auto) 0.2 Baso # (Auto) 0.0 Immature Gran # (Auto) 0.03 H Absolute Nucleated RBC 0.00 Immature Gran % 0 Nucleated RBC % 0 Sodium 139 Potassium 4.0 Chloride 108 H Carbon Dioxide 22.8 Anion Gap 8 BUN 29 H Creatinine 1.3 Estim Creat Clear Calc 46.5 L eGFR 58 L BUN/Creatinine Ratio 22 H Glucose 87 Calculated Osmolality 282 Calcium 8.0 L Corrected Calcium 8.9 Phosphorus 1.7 L Magnesium 1.9 Total Bilirubin 0.4 AST 17 ALT 14 Alkaline Phosphatase 132 H Total Protein 4.9 L Albumin 2.9 L Globulin 2.0 L Albumin/Globulin Ratio 1.5 Quality Measures Quality Measures VTE prophylaxis Advance care planning discussed with:: patient Assessment & Plan Assessment Current Active Medications: Generic Name Dose Route Start Last Admin Trade Name Freq PRN Reason Stop Dose Admin Acetaminophen 1,000 mg 06/01/25 06:50 06/04/25 13:44 Acetaminophen 500 Mg Tablet PO 06/28/25 21:45 1,000 mg Q6HR PRN Administration Fever >99 or Pain 1-4 Apixaban 2.5 mg 06/06/25 09:00 06/06/25 08:23 Apixaban 2.5 Mg Tablet PO 07/06/25 08:59 2.5 mg On Hold: 06/06/25 16:20 QDAY DARYL Administration Insulin Human Regular 0 unit 06/03/25 14:46 Insulin Hum Regular 1 Unit/0.01 Ml (Per Unit) SC 07/03/25 14:45 Q6HR PRN GLYCEMIC MANAGEMENT ON PN Protocol Levothyroxine Sodium 200 mcg/ 225 mcg 06/05/25 06:00 06/07/25 05:21 Levothyroxine Sodium 25 mcg PO 07/05/25 05:59 225 mcg ACBR DARYL Administration Metoclopramide HCl 5 mg 06/03/25 14:00 06/07/25 14:34 Metoclopramide Inj 5 Mg/Ml Vial 2 Ml IVP 07/03/25 13:59 5 mg Q8HR DARYL Administration Protocol Ondansetron HCl 4 mg 05/30/25 05:38 05/31/25 13:48 Ondansetron Inj 2 Mg/Ml Inj 2 Ml IVP 06/28/25 19:45 4 mg Q4HR PRN Administration NAUSEA OR VOMITING Protocol Pantoprazole Sodium 40 mg 06/02/25 09:00 06/07/25 08:31 Pantoprazole 40 Mg Tablet PO 07/02/25 08:59 40 mg BID DARYL Administration Sacubitril/Valsartan 0.5 tab 06/05/25 21:00 06/07/25 08:31 Sacubitril 24 Mg/Valsartan 26 Mg Tablet PO 07/05/25 20:59 0.5 tab BID DARYL Administration Sertraline HCl 100 mg 05/30/25 21:00 06/06/25 20:20 Sertraline Hcl 25 Mg Tablet PO 06/29/25 20:59 100 mg HS DARYL Administration Plan Burke Salazar 74M pmhx of HTN, atrial fibril/lation on Eliquis, hypothyroidism, depression, s/p colorectal anastomosis, colostomy reversal (2023) presented to [facility] ED on 05/29 for abdominal pain, N/V, and hematochezia. Cardiology was consulted for echo results and atrial fibrillation. #HFrEF (40-45%, 05/2025) 08/28/23 Echo showed Normal LV size and function. Estimated EF 55-60% Normal RV size and function. Mild MR, Trace TR. IVC not well visualized. 05/29/25 Echo showed Normal left ventricular size. EF estimated 40-45%. Mild global Hypokinesis. Normal right ventricular size and function. Estimated RVSP 58 mmHg. Atleast moderate pulmonary HTN. Moderate dilated LA and RA. Mild MAC. Moderate Aortic valve sclerosis without stenosis. Moderate - severe TR and moderate MR. Trace AR. No pericardial effusion. Likely tachycardia induced vs chronic rhythm uncontrolled induced cardiomyopathy not on GDMT. Plan: -Blood pressure today was in the high 90s systolic, pulse rate in the low 60s. We recommend holding GDMT treatment. However, Will need to be on GDMT once BP tolerates and post management of GIB with reevaluation with repeat echo post 3 months of adequate GDMT - Caution with maintenance fluids given patient's hx of HFrEF, if patient develops volume overload such as new SOB, leg swelling or orthopnea, stop IVF and diurese if necessary - Telemetry for cardiac monitoring - Keep K>4 and Mg>2 at all times #Atrial fibrillation, slow ventricular rate on Eliquis Per history, also reports taking Eliquis 5 mg QD not BID. During current hospital stay, rate has been bradycardic and previous admission in 04/2024 HR 70- 100. EKGs since 2022 report atrial fibrillation. Plan: - We recommended holding Eliquis downtrending of hemoglobin to for now, considered start the patient on Eliquis again as soon as there is no risk of bleeding and cleared by gastroenterology. - No indication for medical or interventional treatment, such as medication or cardioversion, at this time as rate is low normal and patient is having GIB - Follow up outpatient cardiology for further management and follow up #HTN Per history, patient is on amlodipine 5 mg QD, HCTZ 12.5 mg QD and lisinopril 40 mg QD. Plan: - Recommend to start GDMT if BP allows - CTM vitals #Syncope 2/2 acute post hemorrhagic anemia #Upper versus lower GI bleed #Hematochezia #Normocytic anemia, chronic #Hx Colorectal reanastomosis #S/P Reverse colostomy #CKD, stage III #Hyperchloremia #Hypothyroidism #Depression Chronic medical conditions nonpertinent to the following presentation Plan: - Management per primary team Thank you for the consult and allowing participation in patient's care. - Patient's plan and care discussed with my attending, Dr. Carlos Lim MD Internal Medicine PGY-3
[2025-06-07] MEDS: SERTRALINE HCL 25 MG TABLET 100 MG PO (20:22)
--- NOTE | 2025-06-07 21:46 | ESPR_ITS ---
Documentation for date of: 06/07/25 Subjective Subjective Interval history: Patient evaluated Hemoglobin hematocrit 8.2 and 24.2 was scheduled for colonoscopy but more clear Exam Vital Signs Temp Pulse Resp BP Pulse Ox O2 Del Method O2 Flow Rate 97.1 F 64 18 112/60 96 Room Air 3 06/07/25 20:00 06/07/25 20:00 06/07/25 20:00 06/07/25 20:00 06/07/25 20:00 06/07/25 20:00 06/05/25 12:00 Objective Labs 06/07/25 04:45 06/07/25 04:45 Labs: Laboratory Results - last 24 hr 06/07/25 04:45 WBC 6.9 RBC 2.66 L Hgb 8.2 L Hct 24.2 L MCV 91 MCH 30.8 MCHC 33.9 RDW Std Deviation 49.0 H Plt Count 195 Neut % (Auto) 56 Lymph % (Auto) 33 [place] % (Auto) 7 Eos % (Auto) 4 Baso % (Auto) 0 Neut # (Auto) 3.9 Lymph # (Auto) 2.3 [place] # (Auto) 0.5 Eos # (Auto) 0.2 Baso # (Auto) 0.0 Immature Gran # (Auto) 0.03 H Absolute Nucleated RBC 0.00 Immature Gran % 0 Nucleated RBC % 0 Sodium 139 Potassium 4.0 Chloride 108 H Carbon Dioxide 22.8 Anion Gap 8 BUN 29 H Creatinine 1.3 Estim Creat Clear Calc 46.5 L eGFR 58 L BUN/Creatinine Ratio 22 H Glucose 87 Calculated Osmolality 282 Calcium 8.0 L Corrected Calcium 8.9 Phosphorus 1.7 L Magnesium 1.9 Total Bilirubin 0.4 AST 17 ALT 14 Alkaline Phosphatase 132 H Total Protein 4.9 L Albumin 2.9 L Globulin 2.0 L Albumin/Globulin Ratio 1.5 Impressions Impression: Anemia of blood loss Continue GoLytely Once cleared we will schedule the colonoscopy Assessment & Plan A&P Narrative # Acute GI bleed with drop in hemoglobin hematocrit and melanotic stools and rectal examination showing grossly Hemoccult positivity Plan N.p.o. Serial CBCs IV Protonix Consent obtained for fiberoptic esophagogastroduodenoscopy with possible biopsy possible therapeutic intervention under intravenous moderate sedation Will follow the patient Other medical problems include Chronic atrial fibrillation on Eliquis which is on hold Hypothyroidism Thank you very much for the opportunity to participate in the care of this patient Time Spent With Patient Time: Total time spent is greater than 50% in coordination of care (as documented) at patient's floor/unit and/or counseling patient:
[2025-06-08] VITALS (16 sets, daily range): BP systolic 88–123; BP diastolic 42–70; PULSE 53–93; RESP 12–20; TEMP 36.2–36.7; O2SAT 95–100; BMI 21.9
[2025-06-08] MEDS: METOCLOPRAMIDE INJ 5 MG/ML VIAL 2 ML IVP ×3 (05:05→22:02)
[2025-06-08] MEDS: LEVOTHYROXINE SODIUM 225 MCG PO (05:05)
[2025-06-08] MEDS: ACETAMINOPHEN 500 MG TABLET 1000 MG PO (05:09)
[2025-06-08 05:18] LABS: Basophils # (Auto) 0.0 Thou/mm3 (0.0-0.2); Basophils % (Auto) 0 % (0-2.5); Eosinophils # (Auto) 0.2 Thou/mm3 (0.0-0.5); Eosinophils % (Auto) 4 % (0-10); Hematocrit 22.7 % (41.0-53.0); Immature Granulocytes Auto 0.02 Thou/mm3 (0.00-0.00); Lymphocytes # (Auto) 2.3 Thou/mm3 (1.0-4.8); Lymphocytes % (Auto) 41 % (10-50); Mean Corpuscular HGB Conc 33.0 g/dl (31.0-37.0); Mean Corpuscular Hemoglobin 30.4 pg (25.0-35.0); Mean Corpuscular Volume 92 fL (80-100); Monocytes # (Auto) 0.4 Thou/mm3 (0.0-0.8); Monocytes % (Auto) 7 % (0-12); Neutrophils # (Auto) 2.6 Thou/mm3 (1.8-7.7); Neutrophils % (Auto) 47 % (37-80); Nucleated Red Blood Cell # 0.00 Thou/mm3 (0.00-0.00); Nucleated Red Blood Cell % 0 /100 WBC (0); Platelet Count 221 Thou/mm3 (140-440); RDW Standard Deviation 49.0 fL (35.1-43.9); Red Blood Count 2.47 Miln/mm3 (4.50-5.90); White Blood Count 5.5 Thou/mm3 (3.8-10.6)
[2025-06-08 05:52] LABS: Hemoglobin 7.5 g/dL (13.5-16.0)
[2025-06-08 06:10] LABS: Alanine Aminotransferase 12 U/L (10-49); Albumin, Serum 2.7 gm/dL (3.4-4.8); Albumin/Globulin Ratio 1.4 (1.2-2.2); Alkaline Phosphatase 122 U/L (46-116); Anion Gap 8 (7-16); Aspartate Amino Transferase 13 U/L (0-34); BUN/Creatinine Ratio 17 Ratio (12-20); Bilirubin,Total 0.4 mg/dL (0.3-1.2); Blood Urea Nitrogen 20 mg/dL (9-23); Calcium 8.1 mg/dL (8.3-10.6); Calcium (Corrected) 9.1 mg/dL (8.5-10.1); Carbon Dioxide 23.7 mMol/L (20.0-31.0); Chloride 108 mMol/L (98-107); Creatinine (Component) 1.2 mg/dL (0.6-1.3); Estimated Creatinine Clearance 50.3 mL/min (>60); Globulin 2.0 gm/dL (2.3-3.5); Glucose 79 mg/dL (74-106); Magnesium 1.8 mg/dL (1.6-2.6); Osmolality,Calculated 281 (275-295); Phosphorous 1.8 mg/dL (2.4-5.1); Potassium 4.2 mMol/L (3.4-5.1); Sodium 140 mMol/L (136-145); Total Protein 4.7 gm/dL (5.7-8.2); eGFR > 60 See Note
--- NOTE | 2025-06-08 08:00 | PD.IMPROG ---
Documented by User: Cecil Joseph MD 06/08/25 23:37 Documentation for date of: 06/08/25 Exam Vital Signs Temp Pulse Resp BP Pulse Ox O2 Del Method O2 Flow Rate 97.9 F 77 16 123/58 L 98 Room Air 3 06/08/25 16:00 06/08/25 16:31 06/08/25 16:00 06/08/25 16:00 06/08/25 16:00 06/08/25 16:00 06/05/25 12:00 Objective Labs 06/08/25 04:35 06/08/25 04:35 Labs: Laboratory Results - last 24 hr 06/08/25 04:35 WBC 5.5 RBC 2.47 L Hgb 7.5 L Hct 22.7 L MCV 92 MCH 30.4 MCHC 33.0 RDW Std Deviation 49.0 H Plt Count 221 Neut % (Auto) 47 Lymph % (Auto) 41 [place] % (Auto) 7 Eos % (Auto) 4 Baso % (Auto) 0 Neut # (Auto) 2.6 Lymph # (Auto) 2.3 [place] # (Auto) 0.4 Eos # (Auto) 0.2 Baso # (Auto) 0.0 Immature Gran # (Auto) 0.02 H Absolute Nucleated RBC 0.00 Immature Gran % 0 Nucleated RBC % 0 Sodium 140 Potassium 4.2 Chloride 108 H Carbon Dioxide 23.7 Anion Gap 8 BUN 20 Creatinine 1.2 Estim Creat Clear Calc 50.3 L eGFR > 60 BUN/Creatinine Ratio 17 Glucose 79 Calculated Osmolality 281 Calcium 8.1 L Corrected Calcium 9.1 Phosphorus 1.8 L Magnesium 1.8 Total Bilirubin 0.4 AST 13 ALT 12 Alkaline Phosphatase 122 H Total Protein 4.7 L Albumin 2.7 L Globulin 2.0 L Albumin/Globulin Ratio 1.4 Assessment & Plan A&P Narrative Patient is a 74 year old male with past medical history of HTN, atrial fibrillation on Eliquis, hypothyroidism, depression, s/p colorectal anastomosis, colostomy reversal (2023) presented to [facility] ED on 05/29 for abdominal pain, N/V, and hematochezia. Cardiology was consulted for echo results and atrial fibrillation. #HFrEF (40-45%, 05/2025) 08/28/23 Echo showed Normal LV size and function. Estimated EF 55-60% Normal RV size and function. Mild MR, Trace TR. IVC not well visualized. 05/29/25 Echo showed Normal left ventricular size. EF estimated 40-45%. Mild global Hypokinesis. Normal right ventricular size and function. Estimated RVSP 58 mmHg. Atleast moderate pulmonary HTN. Moderate dilated LA and RA. Mild MAC. Moderate Aortic valve sclerosis without stenosis. Moderate - severe TR and moderate MR. Trace AR. No pericardial effusion. Likely tachycardia induced vs chronic rhythm uncontrolled induced cardiomyopathy not on GDMT. Plan: - Continue Entresto 0.5 tablet BID - Recommend continuing to advance GDMT as BP tolerates - Caution with maintenance fluids given patient's hx of HFrEF, if patient develops volume overload such as new SOB, leg swelling or orthopnea, stop IVF and diurese if necessary - Telemetry for cardiac monitoring - Keep K>4 and Mg>2 at all times #Atrial fibrillation, slow ventricular rate on Eliquis Per history, was taking Eliquis 5 mg QD not BID. During current hospital stay, rate has been bradycardic and previous admission in 04/2024 HR 70-100. EKGs since 2022 report atrial fibrillation. Plan: - Continue to hold Eliquis in anticipation for colonoscopy, - Reocommend restarting on Eliquis once cleared by gastroenterology. - No indication for medical or interventional treatment, such as medication or cardioversion, at this time as rate is low normal and patient is having GIB - Follow up outpatient cardiology for further management and follow up #HTN Per history, patient is on amlodipine 5 mg QD, HCTZ 12.5 mg QD and lisinopril 40 mg QD. Plan: - Entresto as above - Recommend to advance GDMT if BP allows - Hold home amlodipine, HCTZ, and lisinopril - CTM vitals #Syncope 2/2 acute post hemorrhagic anemia #Upper versus lower GI bleed #Hematochezia #Normocytic anemia, chronic #Hx Colorectal reanastomosis #S/P Reverse colostomy #CKD, stage III #Hyperchloremia #Hypothyroidism #Depression Chronic medical conditions nonpertinent to the following presentation Plan: - Management per primary team Thank you for the consult and allowing participation in patient's care. Patient plan of care was discussed with the attending physician, Dr. Joseph . Emperatriz Clifford, PGY-1 I have personally seen and examined the patient separately on the above date of service and discussed the plan of care with the resident. I reviewed the resident Dr. Emperatriz Clifford consultation progress note and agree with the resident findings and plan in the note above and have also edited the documentation to reflect my findings and plan. Cecil Joseph M.D. Interventional Cardiology Time Spent With Patient Time: Total time spent is greater than 50% in coordination of care (as documented) at patient's floor/unit and/or counseling patient: Documented by User: Emperatriz Clifford DO 06/08/25 21:22 Subjective Subjective Interval history: Patient was seen and assessed at bedside. No new complaints. Doing well. Denied chest pain, shortness of breath, palpitations; however continued to be in atrial fibrillation on exam. Continues to be rate controlled on telemetry. SBP 100-110, tolerating Entresto well. Continue to hold Eliquis in anticipation for colonoscopy. Potassium 4.1, magnesium 1.8, repleted with magnesium sulfate 2g IV. Exam Vital Signs Temp Pulse Resp BP Pulse Ox O2 Del Method O2 Flow Rate 97.9 F 77 16 123/58 L 98 Room Air 3 06/08/25 16:00 06/08/25 16:31 06/08/25 16:00 06/08/25 16:00 06/08/25 16:00 06/08/25 16:00 06/05/25 12:00 Narrative Exam GENERAL: AOx3, no acute distress HEENT: NC/AT, mucous membranes moist, bilateral sclera anicteric, R scabbed laceration medial aspect of R eyebrow CARDIOVASCULAR: regular rate and irregular rhythm, S1/S2 present, no murmurs appreciated PULMONARY: clear to auscultation bilaterally, no rales/rhonchi/wheezes ABDOMINAL: soft, non-tender, non-distended, no rebound/guarding, bowel sounds present EXTREMITIES: no peripheral edema SKIN: warm and dry, intact, no rashes NEURO: CN II-XII grossly intact, no focal deficits, alert, following commands Objective Labs 06/08/25 04:35 06/08/25 04:35 Labs: Laboratory Results - last 24 hr 06/08/25 04:35 WBC 5.5 RBC 2.47 L Hgb 7.5 L Hct 22.7 L MCV 92 MCH 30.4 MCHC 33.0 RDW Std Deviation 49.0 H Plt Count 221 Neut % (Auto) 47 Lymph % (Auto) 41 [place] % (Auto) 7 Eos % (Auto) 4 Baso % (Auto) 0 Neut # (Auto) 2.6 Lymph # (Auto) 2.3 [place] # (Auto) 0.4 Eos # (Auto) 0.2 Baso # (Auto) 0.0 Immature Gran # (Auto) 0.02 H Absolute Nucleated RBC 0.00 Immature Gran % 0 Nucleated RBC % 0 Sodium 140 Potassium 4.2 Chloride 108 H Carbon Dioxide 23.7 Anion Gap 8 BUN 20 Creatinine 1.2 Estim Creat Clear Calc 50.3 L eGFR > 60 BUN/Creatinine Ratio 17 Glucose 79 Calculated Osmolality 281 Calcium 8.1 L Corrected Calcium 9.1 Phosphorus 1.8 L Magnesium 1.8 Total Bilirubin 0.4 AST 13 ALT 12 Alkaline Phosphatase 122 H Total Protein 4.7 L Albumin 2.7 L Globulin 2.0 L Albumin/Globulin Ratio 1.4 Assessment & Plan A&P Narrative Patient is a 74 year old male with past medical history of HTN, atrial fibrillation on Eliquis, hypothyroidism, depression, s/p colorectal anastomosis, colostomy reversal (2023) presented to [facility] ED on 05/29 for abdominal pain, N/V, and hematochezia. Cardiology was consulted for echo results and atrial fibrillation. #HFrEF (40-45%, 05/2025) 08/28/23 Echo showed Normal LV size and function. Estimated EF 55-60% Normal RV size and function. Mild MR, Trace TR. IVC not well visualized. 05/29/25 Echo showed Normal left ventricular size. EF estimated 40-45%. Mild global Hypokinesis. Normal right ventricular size and function. Estimated RVSP 58 mmHg. Atleast moderate pulmonary HTN. Moderate dilated LA and RA. Mild MAC. Moderate Aortic valve sclerosis without stenosis. Moderate - severe TR and moderate MR. Trace AR. No pericardial effusion. Likely tachycardia induced vs chronic rhythm uncontrolled induced cardiomyopathy not on GDMT. Plan: - Continue Entresto 0.5 tablet BID - Recommend continuing to advance GDMT as BP tolerates - Caution with maintenance fluids given patient's hx of HFrEF, if patient develops volume overload such as new SOB, leg swelling or orthopnea, stop IVF and diurese if necessary - Telemetry for cardiac monitoring - Keep K>4 and Mg>2 at all times #Atrial fibrillation, slow ventricular rate on Eliquis Per history, was taking Eliquis 5 mg QD not BID. During current hospital stay, rate has been bradycardic and previous admission in 04/2024 HR 70-100. EKGs since 2022 report atrial fibrillation. Plan: - Continue to hold Eliquis in anticipation for colonoscopy, - Reocommend restarting on Eliquis once cleared by gastroenterology. - No indication for medical or interventional treatment, such as medication or cardioversion, at this time as rate is low normal and patient is having GIB - Follow up outpatient cardiology for further management and follow up #HTN Per history, patient is on amlodipine 5 mg QD, HCTZ 12.5 mg QD and lisinopril 40 mg QD. Plan: - Entresto as above - Recommend to advance GDMT if BP allows - Hold home amlodipine, HCTZ, and lisinopril - CTM vitals #Syncope 2/2 acute post hemorrhagic anemia #Upper versus lower GI bleed #Hematochezia #Normocytic anemia, chronic #Hx Colorectal reanastomosis #S/P Reverse colostomy #CKD, stage III #Hyperchloremia #Hypothyroidism #Depression Chronic medical conditions nonpertinent to the following presentation Plan: - Management per primary team Thank you for the consult and allowing participation in patient's care. Patient plan of care was discussed with the attending physician, Dr. Joseph . Emperatriz Clifford, PGY-1
[2025-06-08] MEDS: NAPH,KPH MBDB 1 PACKET (1.5 GM) PO (09:05)
[2025-06-08] MEDS: PANTOPRAZOLE 40 MG TABLET PO ×2 (09:05→22:03)
[2025-06-08] MEDS: Magnesium Sulfate 2 GM Ivpb 2 GM/50 ML BAG IV (09:30)
--- NOTE | 2025-06-08 18:12 | ESPR_ITS ---
<Statement entered by Lawrence Case MD - 06/08/25 18:51> Patient was seen and evaluated at bedside this morning. No acute overnight events. Patient was not clear enough therefore he did not have colonoscopy yesterday, continue GoLytely today and possible colonoscopy today. Expecting possible discharge in the next 24 to 48 hours. Note reviewed and agree with resident's care plan as documented except as noted above. Case disclosed with attending Dr. Magdalena Case PGY2 Disclaimer: Even though this this note was dictated by speech recognition and even though it was carefully revised there may still be minor errors in compliance associate due to voice recognition software. Documentation for date of: 06/08/25 Subjective Subjective Interval history: Patient seen and examined at bedside. Telemetry reviewed, patient is still in atrial fibrillation controlled rate in the 60s. Patient is feeling well today, drinking GoLytely still. No new complaints, denies chest pain, shortness of breath, fever or abdominal pain. BP 90-115 over 50-60s. Heart rate 60s. Hemoglobin decreased from 8.2-7.5. Potassium 4.2, BUN decreased from 29 to 20. Creatinine 1.2. Phosphate 1.8 repleted with 1 packet of Neutra-Phos. Alk phos stable elevated 122. Albumin low 2.7. Colonoscopy tonight. Exam Vital Signs Temp Pulse Resp BP Pulse Ox O2 Del Method O2 Flow Rate 97.9 F 77 16 123/58 L 98 Room Air 3 06/08/25 16:00 06/08/25 16:31 06/08/25 16:00 06/08/25 16:00 06/08/25 16:00 06/08/25 16:00 06/05/25 12:00 Narrative Exam GENERAL: AOx3, no acute distress HEENT: NC/AT, mucous membranes moist, bilateral sclera anicteric, R healing laceration medial aspect of R eyebrow CARDIOVASCULAR: regular rate and irregular rhythm, S1/S2 present, no murmurs appreciated PULMONARY: clear to auscultation bilaterally, no rales/rhonchi/wheezes ABDOMINAL: soft, non-tender, non-distended, no rebound/guarding, bowel sounds present EXTREMITIES: no peripheral edema SKIN: warm and dry, intact, no rashes NEURO: CN II-XII grossly intact, no focal deficits, alert, following commands Objective Labs 06/09/25 08:50 06/09/25 08:50 Labs: Laboratory Results - last 24 hr 06/08/25 04:35 WBC 5.5 RBC 2.47 L Hgb 7.5 L Hct 22.7 L MCV 92 MCH 30.4 MCHC 33.0 RDW Std Deviation 49.0 H Plt Count 221 Neut % (Auto) 47 Lymph % (Auto) 41 Cook % (Auto) 7 Eos % (Auto) 4 Baso % (Auto) 0 Neut # (Auto) 2.6 Lymph # (Auto) 2.3 Cook # (Auto) 0.4 Eos # (Auto) 0.2 Baso # (Auto) 0.0 Immature Gran # (Auto) 0.02 H Absolute Nucleated RBC 0.00 Immature Gran % 0 Nucleated RBC % 0 Sodium 140 Potassium 4.2 Chloride 108 H Carbon Dioxide 23.7 Anion Gap 8 BUN 20 Creatinine 1.2 Estim Creat Clear Calc 50.3 L eGFR > 60 BUN/Creatinine Ratio 17 Glucose 79 Calculated Osmolality 281 Calcium 8.1 L Corrected Calcium 9.1 Phosphorus 1.8 L Magnesium 1.8 Total Bilirubin 0.4 AST 13 ALT 12 Alkaline Phosphatase 122 H Total Protein 4.7 L Albumin 2.7 L Globulin 2.0 L Albumin/Globulin Ratio 1.4 Quality Measures Quality Measures VTE prophylaxis Advance care planning discussed with:: patient Assessment & Plan Assessment Current Active Medications: Generic Name Dose Route Start Last Admin Trade Name Freq PRN Reason Stop Dose Admin Acetaminophen 1,000 mg 06/01/25 06:50 06/08/25 05:09 Acetaminophen 500 Mg Tablet PO 06/28/25 21:45 1,000 mg Q6HR PRN Administration Fever >99 or Pain 1-4 Apixaban 2.5 mg 06/06/25 09:00 06/06/25 08:23 Apixaban 2.5 Mg Tablet PO 07/06/25 08:59 2.5 mg On Hold: 06/06/25 16:20 QDAY DARYL Administration Insulin Human Regular 0 unit 06/03/25 14:46 Insulin Hum Regular 1 Unit/0.01 Ml (Per Unit) SC 07/03/25 14:45 Q6HR PRN GLYCEMIC MANAGEMENT ON PN Protocol Levothyroxine Sodium 200 mcg/ 225 mcg 06/05/25 06:00 06/08/25 05:05 Levothyroxine Sodium 25 mcg PO 07/05/25 05:59 225 mcg ACBR DARYL Administration Metoclopramide HCl 5 mg 06/03/25 14:00 06/08/25 14:36 Metoclopramide Inj 5 Mg/Ml Vial 2 Ml IVP 07/03/25 13:59 5 mg Q8HR DARYL Administration Protocol Ondansetron HCl 4 mg 05/30/25 05:38 05/31/25 13:48 Ondansetron Inj 2 Mg/Ml Inj 2 Ml IVP 06/28/25 19:45 4 mg Q4HR PRN Administration NAUSEA OR VOMITING Protocol Pantoprazole Sodium 40 mg 06/02/25 09:00 06/08/25 09:05 Pantoprazole 40 Mg Tablet PO 07/02/25 08:59 40 mg BID DARYL Administration Sacubitril/Valsartan 0.5 tab 06/05/25 21:00 06/08/25 09:05 Sacubitril 24 Mg/Valsartan 26 Mg Tablet PO 07/05/25 20:59 0.5 tab BID DARYL Administration Sertraline HCl 100 mg 05/30/25 21:00 06/07/25 20:22 Sertraline Hcl 25 Mg Tablet PO 06/29/25 20:59 100 mg HS DARYL Administration Plan Burke Salazar is a 74M past medical significant for hypertension, hypothyroidism, depression, A-fib on Eliquis, 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 Admitted for possible GI bleed and syncopal episode. #Acute Hematochezia #Normocytic anemia, chronic #History of colorectal reanastomosis 2022 S/p reverse colostomy 2023 #SBO (05/31-06/02) s/p NG tube with total ~6L Underwent procedure on April 16, 2024 under care of general surgeon, Dr. Robb, for removal of colostomy.? Now presents with few days of hematochezia, abdominal pain, nonbloody emesis and nausea.? Initial hemoglobin of 10.5 (baseline 9.6- 10.3) and hematocrit of 32.4.? Stool occult positive. EGD (05/30): no source of UGIBD but poor visibility noted due to presence of large amount of bile and food, suspect gastric motility disorder vs SBO XR abdomen: moderate to large amounts of stool throughout the colon, central dilated small bowel loops, no free air. CTAP: small bowel obstruction pattern. Abdominal series with gastrograffin consistently showed SBO pattern. Initiated NGT low intermittent suction, with 1L of output on 05/31, and another 4.4L on 06/01. On 06/02 AM, KUB showed contrast in the right colon, however dilated loops of small bowel still there. Patient had 1L in NG suctioened fluids, and was not a candidate for colonoscopy for risk of aspiration from prep. On the morning of 06/04, NGT had collected 50 mL of suction fluids only and decision was made to discontinue NGT.? Enema ordered, which resulted in large BM midday.? Diet advanced to CLD, and PPN stopped as patient tolerated oral intake well.? Started Entresto half a tablet daily in the setting of adequately elevated BP.? Surgery consulted, recommended conservative management given decreased NG tube output and benign exam. Patient was started on Reglan and PPN.?Patient tolerated CLD, PPN was discontinued, and diet advanced to routine.? GI originally recommended outpatient colonoscopy and patient refused inpatient however Hgb continues to slowly downtrend and patient became agreeable to colonoscopy inpatient. Iron Panel: 129, TIBC 245 low, iron sat 52% within normal limits, unsaturated iron binding 116 low. s/p iron infusions [place] score: 24 that is 20 to 28% probability of safe discharge (absence of rebleeding, blood transfusion, therapeutic intervention, 28-day readmission, or ) in the patient with recent acute lower GI bleed. Plan: - GI consulted, appreciate recs: colonoscopy planned for tonight - HOLD Eliquis 2.5 mg BID until GI clears - Protonix 40 mg IV BID - PRN Ondansetron for nausea/vomiting - Transfuse if hemoglobin <7 #Syncope 2/2 hypovolemia #Atrial fibrillation w/ SVR #HFrEF (40-45%, 05/2025) #Primary Hypertension Furthermore, EKG did reveal A-fib with slow ventricular response with HR in 50s, telemetry did reveal frequent PVCs and NSVT. Home meds: amlodipine 5 mg daily, HCTZ 12.5 mg daily, and lisinopril 40 mg daily + Eliquis 5 mg; reports taking Eliquis 5 mg QD not BID. 05/30 Echo showed EF estimated 40-45%. moderate pulmonary HTN, dilated LA and RA. Moderate Aortic valve sclerosis without stenosis Moderate - severe TR and moderate MR. Likely orthostatic hypotension 2/2 hypovolemia related to GI bleed. Orthostatic vitals show 122/71 (lying), 104/68 (sitting), and 114/73 (standing) Patient reports ambulating to window and restroom, no futher episodes of syncope CHADsVAS score 2 -> 2.9% risk of stroke/TIA/systemic embolism HAS BLED score 3 -> high risk for major bleed Plan: - Recommend rise from supine to standing slowly, compression stockings - Cardiology consulted, appreciate recs: No indication for medical or interventional treatment, such as medication or cardioversion, at this time as rate is low normal and patient is having GIB. Follow up outpatient cardiology for further management - HOLD Eliquis 2.5mg bid due to concern for GIB - PRN Hydralazine 10 mg IV q8h (hold if SBP <140) - Continue Entresto 24/26 0.5 tab BID as BP tolerates - Continue to monitor telemetry - Keep K>4 and Mg>2 #CKD, stage III, stable #Hypophosphatemia #Hyperchloremia #Hyperphosphatemia - resolved On admission, creatinine 1.3, GFR 58. BUN/Cr 22. Phos on admission 5.5, now resolved BUN previously elevated (52) as a compound effect of GI bleed and fluid restriction. Hyperchloremia, likely secondary dehydration and fluid loss in general. Plan: - Recheck and replete as necessary - Renally dose medications and avoid nephrotoxic agents - Monitor renal panel #Hypothyroidism - Levothyroxine 225 mcg ACBR #Depression - Resume home sertraline 100mg PO Hospital management: Lines: PIV Diet: CLD and ensure Bowel: none GI prophylaxis: PO pantoprazole 40 mg BID DVT prophylaxis: hold iso GIB, patient is ambulatory Disposition: med tele, colonoscopy tonight CODE STATUS: FULL CODE Plan of care discussed with attending Dr. Nichols, and PGY-2 Dr. Yin. Massiel Clifford, DO PGY-1 Internal Medicine Attending Provider Attestation/Addendum I have examined the patient, reviewed labs and imaging findings, discussed the case with the resident(s), and reviewed entered orders. I agree with the plan of care as outlined in this note. Dr. Magdalena MD
[2025-06-08] MEDS: SODIUM CHLORIDE 0.9% 500 ML 500 ML 20 ML IV (21:02)
[2025-06-08] MEDS: SERTRALINE HCL 25 MG TABLET 100 MG PO (22:02)
[2025-06-09] VITALS (7 sets, daily range): BP systolic 103–121; BP diastolic 52–63; PULSE 56–74; RESP 14–20; TEMP 36.2–37; O2SAT 98–99
[2025-06-09] MEDS: LEVOTHYROXINE SODIUM 225 MCG PO (05:41)
[2025-06-09] MEDS: METOCLOPRAMIDE INJ 5 MG/ML VIAL 2 ML IVP ×2 (05:41→13:48)
--- NOTE | 2025-06-09 08:44 | ESPR_ITS ---
Documentation for date of: 06/09/25 Subjective Subjective Interval history: Patient was seen and assessed at bedside. Complaining of sore throat status post colonoscopy last night, otherwise no new complaints. Denies chest pain, shortness of breath, palpitations. BP 113/55, systolics in 110s overnight. Continues to be in A-fib on telemetry box, heart rate in low 60s. Hemoglobin dropped to 7.5 from 8.2, denies any bleeding from rectum but was found to have internal hemorrhoids on colonoscopy. Also found 1 cm rectal polyp which was biopsied. Potassium 4.2, magnesium 1.8, phosphorus 1.8, recommend repletion. Creatinine 1.2. Exam Vital Signs Temp Pulse Resp BP Pulse Ox O2 Del Method O2 Flow Rate 97.8 F 63 19 115/63 99 Room Air 3 06/09/25 08:00 06/09/25 08:00 06/09/25 08:00 06/09/25 08:00 06/09/25 08:00 06/09/25 08:00 06/08/25 21:25 Narrative Exam GENERAL: AOx3, no acute distress HEENT: NC/AT, mucous membranes moist, bilateral sclera anicteric, R scabbed laceration medial aspect of R eyebrow CARDIOVASCULAR: Irregular rate and rhythm, S1/S2 present, no murmurs appreciated PULMONARY: clear to auscultation bilaterally, no rales/rhonchi/wheezes ABDOMINAL: soft, non-tender, non-distended, no rebound/guarding, bowel sounds present EXTREMITIES: no peripheral edema SKIN: warm and dry, intact, no rashes NEURO: CN II-XII grossly intact, no focal deficits, alert, following commands Objective Labs 06/09/25 08:50 06/09/25 08:50 Quality Measures Quality Measures VTE prophylaxis Advance care planning discussed with:: patient Assessment & Plan Assessment Current Active Medications: Generic Name Dose Route Start Last Admin Trade Name Freq PRN Reason Stop Dose Admin Acetaminophen 1,000 mg 06/01/25 06:50 06/08/25 05:09 Acetaminophen 500 Mg Tablet PO 06/28/25 21:45 1,000 mg Q6HR PRN Administration Fever >99 or Pain 1-4 Apixaban 2.5 mg 06/06/25 09:00 06/06/25 08:23 Apixaban 2.5 Mg Tablet PO 07/06/25 08:59 2.5 mg On Hold: 06/06/25 16:20 QDAY DARYL Administration Sodium Chloride 500 mls @ 20 mls/hr 06/08/25 21:00 06/08/25 21:02 Ns IV 06/09/25 20:59 20 mls/hr .Q24H ONE Administration Insulin Human Regular 0 unit 06/03/25 14:46 Insulin Hum Regular 1 Unit/0.01 Ml (Per Unit) SC 07/03/25 14:45 Q6HR PRN GLYCEMIC MANAGEMENT ON PN Protocol Levothyroxine Sodium 200 mcg/ 225 mcg 06/05/25 06:00 06/09/25 05:41 Levothyroxine Sodium 25 mcg PO 07/05/25 05:59 225 mcg ACBR DARYL Administration Metoclopramide HCl 5 mg 06/03/25 14:00 06/09/25 05:41 Metoclopramide Inj 5 Mg/Ml Vial 2 Ml IVP 07/03/25 13:59 5 mg Q8HR DARYL Administration Protocol Ondansetron HCl 4 mg 05/30/25 05:38 05/31/25 13:48 Ondansetron Inj 2 Mg/Ml Inj 2 Ml IVP 06/28/25 19:45 4 mg Q4HR PRN Administration NAUSEA OR VOMITING Protocol Pantoprazole Sodium 40 mg 06/02/25 09:00 06/08/25 22:03 Pantoprazole 40 Mg Tablet PO 07/02/25 08:59 40 mg BID DARYL Administration Sacubitril/Valsartan 0.5 tab 06/05/25 21:00 06/08/25 22:03 Sacubitril 24 Mg/Valsartan 26 Mg Tablet PO 07/05/25 20:59 0.5 tab BID DARYL Administration Sertraline HCl 100 mg 05/30/25 21:00 06/08/25 22:02 Sertraline Hcl 25 Mg Tablet PO 06/29/25 20:59 100 mg HS DARYL Administration Plan Patient is a 74 year old male with past medical history of HTN, atrial fibrillation on Eliquis, hypothyroidism, depression, s/p colorectal anastomosis, colostomy reversal (2023) presented to [facility] ED on 05/29 for abdominal pain, N/V, and hematochezia. Cardiology was consulted for echo results and atrial fibrillation. #HFrEF (40-45%, 05/2025) with mild global hypokinesis #Moderate pulmonary hypertension 08/28/23 Echo showed Normal LV size and function. Estimated EF 55-60% Normal RV size and function. Mild MR, Trace TR. IVC not well visualized. 05/29/25 Echo showed Normal left ventricular size. EF estimated 40-45%. Mild global Hypokinesis. Normal right ventricular size and function. Estimated RVSP 58 mmHg. At least moderate pulmonary HTN. Moderate dilated LA and RA. Mild MAC. Moderate Aortic valve sclerosis without stenosis. Moderate - severe TR and moderate MR. Trace AR. No pericardial effusion. Likely tachycardia induced vs chronic rhythm uncontrolled induced cardiomyopathy not on GDMT. Plan: - Continue Entresto 0.5 tablet BID - Recommend continuing to advance GDMT as BP tolerates, especially adding spironolactone - Caution with maintenance fluids given patient's hx of HFrEF, if patient develops volume overload such as new SOB, leg swelling or orthopnea, stop IVF and diurese if necessary - Telemetry for cardiac monitoring - Keep K>4 and Mg>2 at all times #Atrial fibrillation, slow ventricular rate on Eliquis Per history, was taking Eliquis 5 mg QD not BID. During current hospital stay, rate has been bradycardic and previous admission in 04/2024 HR 70-100. EKGs since 2022 report atrial fibrillation. Eliquis was held for the past 2 days in anticipation of colonoscopy (performed on 06/08) Plan: - Recommend restarting on Eliquis once cleared by gastroenterology - No indication for medical or interventional treatment, such as medication or cardioversion, at this time as rate is low normal and patient is having GIB - Follow up outpatient cardiology for further management and follow up #HTN Per history, patient is on amlodipine 5 mg QD, HCTZ 12.5 mg QD and lisinopril 40 mg QD. Plan: - Entresto as above - Recommend to advance GDMT if BP allows - Hold home amlodipine, HCTZ - Can discontinue lisinopril as patient is now on Entresto - CTM vitals #Syncope 2/2 acute post hemorrhagic anemia #Upper versus lower GI bleed #S/p colonoscopy (06/08/2025) #Internal hemorrhoids #Rectal polyp #Hematochezia #Normocytic anemia, chronic #Hx Colorectal reanastomosis #S/P Reverse colostomy #CKD, stage III #Hyperchloremia #Hypothyroidism #Depression Chronic medical conditions nonpertinent to the following presentation Plan: - Management per primary team Thank you for the consult and allowing participation in patient's care. Patient plan of care was discussed with the attending physician, Dr. Joseph . Emperatriz Clifford, PGY-1 Attending Provider Attestation/Addendum I have personally seen and examined the patient separately on the above date of service and discussed the plan of care with the resident. I reviewed the resident Dr. Emperatriz Clifford consultation progress note and agree with the resident findings and plan in the note above and have also edited the documentation to reflect my findings and plan. Cecil Joseph M.D. Interventional Cardiology
[2025-06-09] MEDS: PANTOPRAZOLE 40 MG TABLET PO (09:05)
[2025-06-09 09:35] LABS: Basophils # (Auto) 0.0 Thou/mm3 (0.0-0.2); Basophils % (Auto) 0 % (0-2.5); Eosinophils # (Auto) 0.2 Thou/mm3 (0.0-0.5); Eosinophils % (Auto) 3 % (0-10); Hematocrit 23.3 % (41.0-53.0); Immature Granulocytes Auto 0.02 Thou/mm3 (0.00-0.00); Lymphocytes # (Auto) 1.7 Thou/mm3 (1.0-4.8); Lymphocytes % (Auto) 29 % (10-50); Mean Corpuscular HGB Conc 33.0 g/dl (31.0-37.0); Mean Corpuscular Hemoglobin 30.8 pg (25.0-35.0); Mean Corpuscular Volume 93 fL (80-100); Monocytes # (Auto) 0.4 Thou/mm3 (0.0-0.8); Monocytes % (Auto) 6 % (0-12); Neutrophils # (Auto) 3.5 Thou/mm3 (1.8-7.7); Neutrophils % (Auto) 61 % (37-80); Nucleated Red Blood Cell # 0.00 Thou/mm3 (0.00-0.00); Nucleated Red Blood Cell % 0 /100 WBC (0); Platelet Count 224 Thou/mm3 (140-440); RDW Standard Deviation 50.8 fL (35.1-43.9); Red Blood Count 2.50 Miln/mm3 (4.50-5.90); White Blood Count 5.8 Thou/mm3 (3.8-10.6)
[2025-06-09 09:42] LABS: Hemoglobin 7.7 g/dL (13.5-16.0)
[2025-06-09 09:55] LABS: Alanine Aminotransferase 12 U/L (10-49); Albumin, Serum 2.8 gm/dL (3.4-4.8); Albumin/Globulin Ratio 1.4 (1.2-2.2); Alkaline Phosphatase 124 U/L (46-116); Anion Gap 9 (7-16); Aspartate Amino Transferase 14 U/L (0-34); BUN/Creatinine Ratio 12 Ratio (12-20); Bilirubin,Total 0.3 mg/dL (0.3-1.2); Blood Urea Nitrogen 16 mg/dL (9-23); Calcium 7.7 mg/dL (8.3-10.6); Calcium (Corrected) 8.7 mg/dL (8.5-10.1); Carbon Dioxide 24.0 mMol/L (20.0-31.0); Chloride 107 mMol/L (98-107); Creatinine (Component) 1.3 mg/dL (0.6-1.3); Estimated Creatinine Clearance 46.4 mL/min (>60); Globulin 2.0 gm/dL (2.3-3.5); Glucose 108 mg/dL (74-106); Magnesium 1.8 mg/dL (1.6-2.6); Osmolality,Calculated 281 (275-295); Potassium 4.1 mMol/L (3.4-5.1); Sodium 140 mMol/L (136-145); Total Protein 4.8 gm/dL (5.7-8.2); eGFR 58 See Note
[2025-06-09 10:45] LABS: Phosphorous 1.7 mg/dL (2.4-5.1)
--- NOTE | 2025-06-09 14:51 | ESDS_ITS ---
<Statement entered by Lawrence Case MD - 06/09/25 15:54> Patient was seen and evaluated at bedside this morning. No acute overnight events. Patient had a colonoscopy done which showed some diverticula, hemorrhoids, and a polyp that was removed in the rectum and sent for pathology. At this time patient was stable enough to be discharged home. GI was okay with restarting Eliquis. Note reviewed and agree with resident's care plan as documented except as noted above. Case disclosed with attending Dr. Magdalena Case PGY2 Disclaimer: Even though this this note was dictated by speech recognition and even though it was carefully revised there may still be minor errors in supervisor dehydrogenation due to voice recognition software. Planned Discharge Date 06/09/25 DS: Providers Provider Date of admission: 05/29/25 19:48 Primary care physician: Physician No Primary/Family Admitting Provider: Arlene Salazar MD Attending Provider on Admission: Naun Nichols MD Consults: 05/29/25 18:32 Consult to Gastroenterology Stat Comment: Consulting Provider: Matty Perry 05/29/25 20:42 PT [Referral Physical Therapy] Routine Comment: Physician Instructions: Instructions: S/P GROUND LEVEL FALL 05/30/25 03:47 Referral Registered Dietitian Routine Comment: nausea, vomiting,poor appetite at home,lives alone 05/31/25 17:35 Consult to Cardiology Routine Comment: Consulting Provider: Cecil Joseph 06/03/25 07:48 Consult to General Surgery Routine Comment: Consulting Provider: Zuleyka Lorenzana 06/06/25 14:41 Referral Wound Care Routine Comment: right eyebrow Attending Provider on DC: Naun Nichols MD Discharging Provider: Naun Nichols MD DS: Diagnosis Problem List Completed Was Problem List Reviewed/Reconciled?: Yes Hospital Course Hospital Course Hospital course: Summary: Burke Salazar is a 74M past medical significant for hypertension, hypothyroidism, depression, A-fib on Eliquis, 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 Patient initially underwent EGD on 05/30 which showed at least 850 cc of yellowish bile secretions with the presence of large amount of food but no obstruction seen, no ulcerations seen due to poor v isibility, suspect suction worker noted the presence of gastroparesis and or SBO. NG tube was then placed, suctioning about 6 L total with improvement of abdominal discomfort. Surgery was also consulted and recommended conservative management with improvement on NG suction. Patient then underwent colonoscopy which showed hemorrhoids, nonbleeding diverticula and a polyp that was removed in the rectum and sent for pathology. Cardiology was consulted for syncope, patient does have a past medical history of atrial fibrillation and was taking Eliquis only daily at home not twice daily. 05/30 TTE showed EF estimated 40-45%. moderate pulmonary HTN, dilated LA and RA. Moderate Aortic valve sclerosis without stenosis Moderate - severe TR and moderate MR and patient was started on Entresto 0.5 tab twice daily due to soft blood pressures. Syncope was likely secondary to hypovolemia as well as orthostatics as patient has been experiencing the symptoms for years now and symptoms only occur when patient arises from sitting to standing and when walking long distances. Denied syncope or dizziness on rapid head movement or when sitting or lying down. During admission, patient had no further episodes of syncope or presyncope. On discharge, vitals and labs reviewed to be stable and patient is feeling ready to be discharged home. Imaging: XR abdomen: moderate to large amounts of stool throughout the colon, central dilated small bowel loops, no free air CTAP: small bowel obstruction pattern. Abdominal series with gastrograffin consistently showed SBO pattern 05/30 TTE showed EF estimated 40-45%. moderate pulmonary HTN, dilated LA and RA. Moderate Aortic valve sclerosis without stenosis Moderate - severe TR and moderate MR. Discharge Recommendations: - Please take all medications as prescribed - START Entresto 0.5 tab twice daily with parameters to hold if SBP<100 - START Eliquis 2.5 mg TWICE DAILY - STOP amlodipine 5 mg daily, HCTZ 12.5 mg daily, and lisinopril 40 mg daily - Continue all home medications except as above - Please follow up with your PCP within one week of discharge - Please follow up with your banking analyst within one week of discharge - Please follow-up with suction worker within 5 to 7 days upon discharge for colonoscopy pathology reports - If your symptoms worsen, please seek immediate medical attention and return to your nearest emergency room. - If you do not have a PCP, you may follow up at the [facility] at [address], [facility] [address], Hospital Diagnoses: #Acute Hematochezia #Normocytic anemia, chronic #History of colorectal reanastomosis 2022 S/p reverse colostomy 2023 #SBO (05/31-06/02) s/p NG tube with total ~6L #Syncope 2/2 hypovolemia #Atrial fibrillation w/ SVR #HFrEF (40-45%, 05/2025) #Primary Hypertension #CKD, stage III, stable #Hypophosphatemia, resolved #Hyperchloremia, improving #Hyperphosphatemia - resolved #Hypothyroidism #Depression Massiel Clifford, DO Internal Medicine, PGY-1 Status at Discharge Cognitive/behavioral status at discharge: Stable Time Spent with Patient Time attestation: Total time spent providing and/or coordinating discharge services: Time spent: Greater than 30 minutes Exam Vital Signs Temp Pulse Resp BP Pulse Ox O2 Del Method O2 Flow Rate 98.6 F 68 20 103/52 L 98 Room Air 3 06/09/25 12:00 06/09/25 12:30 06/09/25 12:00 06/09/25 12:00 06/09/25 12:00 06/09/25 12:00 06/08/25 21:25 Narrative Exam GENERAL: AOx3, no acute distress HEENT: NC/AT, mucous membranes moist, bilateral sclera anicteric, R healing laceration medial aspect of R eyebrow CARDIOVASCULAR: regular rate and irregular rhythm, S1/S2 present, no murmurs appreciated PULMONARY: clear to auscultation bilaterally, no rales/rhonchi/wheezes ABDOMINAL: soft, non-tender, non-distended, no rebound/guarding, bowel sounds present EXTREMITIES: no peripheral edema SKIN: warm and dry, intact, no rashes NEURO: CN II-XII grossly intact, no focal deficits, alert, following commands Discharge Plan Plan Patient Disposition: HOME (Self Care) Patient condition on transfer: Stable Care Plan Goals: * Follow-up with Primary Care Physician within 1-2 weeks of discharge. * Please follow-up with suction worker within 5 to 7 days upon discharge for colonoscopy pathology reports * Follow up with your banking analyst, Dr. Joseph, within one to two weeks of discharge. [facility] [address] [place] [address]. Phone:? . Call to make an appointment. * Take Eliquis 2.5 mg twice daily. Take Entresto 24-26 twice daily. * Hold furosemide 20 mg daily as your blood pressure has been on the softer side and you have not had exam findings concerning for fluid overload until you see your Primary Care Physician as early as 06/12/2025. * Stop taking amlodipine, hydrochlorothiazide and lisinopril. * Continue to take levothyroxine 225 mg every morning on an empty stomach. * You may follow-up with one of our residents doctor with the [facility] at the address below. * Continue taking medications as prescribed below. * Return to Emergency Room if symptoms persist, worsen, or new symptoms develop. [facility] [address] [place] [address] Prescriptions/Referrals Prescriptions/Med Rec: New Eliquis 2.5 mg tablet 2.5 mg PO BID 30 Days Qty: 60 0RF sacubitril-valsartan [Entresto] 24-26 mg tablet 1 tab PO BID 30 Days Qty: 60 0RF Continued levothyroxine 25 mcg tablet 25 mcg PO QDAY Patient Comments: TAKE 1 TABLET BY MOUTH ONCE DAILY IN THE MORNING ON AN EMPTY STOMACH levothyroxine 200 mcg tablet 200 mcg PO QDAY sertraline 100 mg tablet 100 mg PO HS Patient Comments: TAKE 1 TABLET BY MOUTH ONCE DAILY FOR 90 DAYS omeprazole 40 mg capsule,delayed release(DR/EC) 40 mg PO QDAY Patient Comments: TAKE 1 CAPSULE BY MOUTH ONCE DAILY Held furosemide 20 mg tablet 20 mg PO QDAY Hold Instructions: Resume on 06/12/25. HOLD until follow up with Cardiology Discontinued hydrochlorothiazide 12.5 mg capsule 12.5 mg PO QDAY Patient Comments: TAKE 1 CAPSULE BY MOUTH ONCE DAILY IN THE MORNING amlodipine 10 mg tablet 5 mg PO QDAY Patient Comments: TAKE 1 TABLET BY MOUTH ONCE DAILY lisinopril 40 mg tablet 40 mg PO QDAY Patient Comments: TAKE 1 TABLET BY MOUTH ONCE DAILY FOR 90 DAYS Eliquis 5 mg tablet 5 mg PO QDAY Patient Comments: TAKE 1 TABLET BY MOUTH TWICE DAILY hydrocodone-acetaminophen 10-325 mg tablet 1 tab PO Q8H MDD 30mg PRN (Reason: pain) Qty: 15 0RF Referrals: Cecil Joseph MD [Physician, Cardiology] Matty Perry MD [Physician, Gastroenterology] No Primary/Family,Physician [Primary Care Provider] Patient/Caregiver Discharge Instructions Discharge Activity: activity as tolerated Other Discharge Activity Instructions:: ? Follow-up with Primary Care Physician within 1-2 weeks of discharge. ? Please follow-up with suction worker within 5 to 7 days upon discharge for colonoscopy pathology reports ? Follow up with your banking analyst, Dr. Joseph, within one to two weeks of discharge. Address: [address] [place] [address], [place] [address]. Phone:? . Call to make an appointment. ? Take Eliquis 2.5 mg twice daily. Take Entresto 24-26 twice daily. ? Hold furosemide 20 mg daily as your blood pressure has been on the softer side and you have not had exam findings concerning for fluid overload until you see your Primary Care Physician as early as 06/12/2025. ? Stop taking amlodipine, hydrochlorothiazide and lisinopril. ? Continue to take levothyroxine 225 mg every morning on an empty stomach. ? You may follow-up with one of our residents doctor with the [facility] at the address below. ? Continue taking medications as prescribed below. ? Return to Emergency Room if symptoms persist, worsen, or new symptoms develop. [facility] [address] [place] [address] Education Materials: Bleeding Gastrointestinal, Anemia, AFL/Afib, Exercise for a Healthier Heart Print Language: Mohawk Stand Alone Forms: [employer] Award Info., Patient Portal Info Letter Discharge Order Discharge Orders: Discharge (Routine); Ordered 06/09/25 Ordered By: Lawrence Case Quality Discharge Quality Measures VTE prophylaxis Attestestation Attestation I have examined the patient, reviewed labs and imaging findings, discussed the case with the resident(s), and reviewed entered orders. I agree with the plan of care as outlined in this note. Time Spent: [address] Magdalena MD
--- NOTE | 2025-06-09 19:35 | PD.IMPROG ---
Documentation for date of: 06/09/25 Subjective Subjective Interval history: Late entry for the note Case discussed with the internal medicine resident Okay to discharge patient home No GI follow-up necessary Exam Vital Signs Temp Pulse Resp BP Pulse Ox O2 Del Method O2 Flow Rate 98.2 F 65 19 110/60 98 Room Air 3 06/09/25 15:30 06/09/25 15:30 06/09/25 15:30 06/09/25 15:30 06/09/25 15:30 06/09/25 15:30 06/08/25 21:25 Objective Labs 06/09/25 08:50 06/09/25 08:50 Labs: Laboratory Results - last 24 hr 06/06/25 06/09/25 12:18 08:50 WBC 5.8 RBC 2.50 L Hgb 7.7 L Hct 23.3 L MCV 93 MCH 30.8 MCHC 33.0 RDW Std Deviation 50.8 H Plt Count 224 Neut % (Auto) 61 Lymph % (Auto) 29 Mclennan % (Auto) 6 Eos % (Auto) 3 Baso % (Auto) 0 Neut # (Auto) 3.5 Lymph # (Auto) 1.7 Mclennan # (Auto) 0.4 Eos # (Auto) 0.2 Baso # (Auto) 0.0 Immature Gran # (Auto) 0.02 H Absolute Nucleated RBC 0.00 Immature Gran % 0 Nucleated RBC % 0 Sodium 140 Potassium 4.1 Chloride 107 Carbon Dioxide 24.0 Anion Gap 9 BUN 16 Creatinine 1.3 Estim Creat Clear Calc 46.4 L eGFR 58 L BUN/Creatinine Ratio 12 Glucose 108 H Calculated Osmolality 281 Calcium 7.7 L Corrected Calcium 8.7 Phosphorus 1.7 L Magnesium 1.8 Total Bilirubin 0.3 AST 14 ALT 12 Alkaline Phosphatase 124 H Total Protein 4.8 L Albumin 2.8 L Globulin 2.0 L Albumin/Globulin Ratio 1.4 Crossmatch See Detail Impressions Impression: Anemia of blood loss Diverticulosis: Left colon Okay to discharge patient home Assessment & Plan A&P Narrative Patient is a 74 year old male with past medical history of HTN, atrial fibrillation on Eliquis, hypothyroidism, depression, s/p colorectal anastomosis, colostomy reversal (2023) presented to [facility] ED on 05/29 for abdominal pain, N/V, and hematochezia. Cardiology was consulted for echo results and atrial fibrillation. #HFrEF (40-45%, 05/2025) 08/28/23 Echo showed Normal LV size and function. Estimated EF 55-60% Normal RV size and function. Mild MR, Trace TR. IVC not well visualized. 05/29/25 Echo showed Normal left ventricular size. EF estimated 40-45%. Mild global Hypokinesis. Normal right ventricular size and function. Estimated RVSP 58 mmHg. Atleast moderate pulmonary HTN. Moderate dilated LA and RA. Mild MAC. Moderate Aortic valve sclerosis without stenosis. Moderate - severe TR and moderate MR. Trace AR. No pericardial effusion. Likely tachycardia induced vs chronic rhythm uncontrolled induced cardiomyopathy not on GDMT. Plan: - Continue Entresto 0.5 tablet BID - Recommend continuing to advance GDMT as BP tolerates - Caution with maintenance fluids given patient's hx of HFrEF, if patient develops volume overload such as new SOB, leg swelling or orthopnea, stop IVF and diurese if necessary - Telemetry for cardiac monitoring - Keep K>4 and Mg>2 at all times #Atrial fibrillation, slow ventricular rate on Eliquis Per history, was taking Eliquis 5 mg QD not BID. During current hospital stay, rate has been bradycardic and previous admission in 04/2024 HR 70-100. EKGs since 2022 report atrial fibrillation. Plan: - Continue to hold Eliquis in anticipation for colonoscopy, - Reocommend restarting on Eliquis once cleared by gastroenterology. - No indication for medical or interventional treatment, such as medication or cardioversion, at this time as rate is low normal and patient is having GIB - Follow up outpatient cardiology for further management and follow up #HTN Per history, patient is on amlodipine 5 mg QD, HCTZ 12.5 mg QD and lisinopril 40 mg QD. Plan: - Entresto as above - Recommend to advance GDMT if BP allows - Hold home amlodipine, HCTZ, and lisinopril - CTM vitals #Syncope 2/2 acute post hemorrhagic anemia #Upper versus lower GI bleed #Hematochezia #Normocytic anemia, chronic #Hx Colorectal reanastomosis #S/P Reverse colostomy #CKD, stage III #Hyperchloremia #Hypothyroidism #Depression Chronic medical conditions nonpertinent to the following presentation Plan: - Management per primary team Thank you for the consult and allowing participation in patient's care. Patient plan of care was discussed with the attending physician, Dr. Joseph . Emperatriz Clifford, PGY-1 I have personally seen and examined the patient separately on the above date of service and discussed the plan of care with the resident. I reviewed the resident Dr. Emperatriz Clifford consultation progress note and agree with the resident findings and plan in the note above and have also edited the documentation to reflect my findings and plan. Cecil Joseph M.D. Interventional Cardiology Time Spent With Patient Time: Total time spent is greater than 50% in coordination of care (as documented) at patient's floor/unit and/or counseling patient:
== END 2025-06-09 15:35 | disposition home or self-care (01) | DRG 377 ==
LOC: SERX 19:19 → SERHOLD 20:32 → S2NX 05-30 03:05 → SERHOLD 05-31 12:52 → S2NX 05-31 12:52 → S3SX 06-05 21:20
PROVIDERS: Registered Nurse General Practice; Specialist; Student in an Organized Health Care Education/Training Program; Admitting Provider Student in an Organized Health Care Education/Training Program; Emergency Provider Emergency Medicine; Visit Provider Student in an Organized Health Care Education/Training Program
PROC: 0DJ08ZZ Inspection of Upper Intestinal Tract, Via Natural or Artificial Opening Endoscopic (ICD-10-PCS; CPT 43239; principal; 2025-05-30 18:15)
PROC: 0DJD8ZZ Inspection of Lower Intestinal Tract, Via Natural or Artificial Opening Endoscopic (ICD-10-PCS; CPT 45378; principal; 2025-06-08 20:00)
DX: K57.31 Diverticulosis of large intestine without perforation or abscess with bleeding (principal); K56.2 Volvulus; D62 Acute posthemorrhagic anemia; I13.0 Hypertensive heart and chronic kidney disease with heart failure and stage 1 through stage 4 chronic kidney disease, or unspecified chronic kidney disease; I48.20 Chronic atrial fibrillation, unspecified; I50.22 Chronic systolic (congestive) heart failure; K56.7 Ileus, unspecified; I47.20 Ventricular tachycardia, unspecified; Z79.01 Long term (current) use of anticoagulants; N18.30 Chronic kidney disease, stage 3 unspecified; E03.9 Hypothyroidism, unspecified; E86.0 Dehydration; E87.8 Other disorders of electrolyte and fluid balance, not elsewhere classified; F32.A Depression, unspecified; S01.111A Laceration without foreign body of right eyelid and periocular area, initial encounter; K31.84 Gastroparesis; D63.1 Anemia in chronic kidney disease; I27.20 Pulmonary hypertension, unspecified; E83.39 Other disorders of phosphorus metabolism; I95.1 Orthostatic hypotension; K64.8 Other hemorrhoids; K62.1 Rectal polyp; K21.9 Gastro-esophageal reflux disease without esophagitis; Z79.890 Hormone replacement therapy; I35.8 Other nonrheumatic aortic valve disorders; Z79.899 Other long term (current) drug therapy; I07.1 Rheumatic tricuspid insufficiency; Z87.891 Personal history of nicotine dependence; Z93.3 Colostomy status
CPT/HCPCS: 36415; 70450; 71045; 72125; 74018; 74176; 74250; 80048; 80053; 80061; 80307; 81001; 82270; 83540; 83550; 83615; 83735; 83880; 84100; 84484; 85014; 85018; 85025; 85610; 85730; 86850; 86900; 86901; 86923; 93005; 93225; 93306; 96365; 96366; 96375; 97162; 99285; A4649; J0360; J1200; J1756; J2250; J2405; J2470; J2765; J3010; J3475; J3490; J7030; J7120; J7999; Q9963; A9270